=== PATIENT | female | born 1950 | race Hispanic/Latino ===

== ENCOUNTER 2017-11-07 10:53 | Emergency (ER) | payer MEDICARE, OTHER ==
[~2017-11-07] VITALS: Ht 160 cm; Wt 115.7 kg
[~2017-11-07 10:53] MED LIST: ASPIR 8181 MG; BACID PO; CIPRO500 MG PO; COREG6.25 MG PO; DOXYCYCLINE HY100 MG PO; FLUCONAZOLE100 MG PO; LASIX40 MG PO; LEVEMIR; LEVEMIR100 UNIT/1 SQ; LOSARTAN POTAS100 MG PO; MELOXICAM7.5 MG PO; METAMUCIL PACK1 EACH PO; METFORMIN HCL500 MG PO; NIFEDIPINE10 MG PO; OMEPRAZOLE40 MG PO; POTASSIUM CHLO10 ME1 PO; PROCARDIA XL30 MG PO; STOOL SOFTENER PO; TYLENOL WITH C1 EACH PO; ULTRAM50 MG PO; Z.0.CALTRATE 600 +1 PO; Z.0.FUROSEMIDE40 MG PO; Z.0.LIPITOR80 MG PO; Z.0.LISINOPRIL20 MG PO; Z.0.OMEPRAZOLE40 MG PO; Z.2.METFORMIN HCL500 PO; ZOFRAN ODT4 MG PO
[2017-11-07 13:05] VITALS: BP 137/49
--- NOTE | 2017-11-07 16:15 | Diagnostic Imaging Report ---
History:Left-sided facial swelling Comparison studies: None Technique: Axial images were obtained through the maxillofacial region. Coronal and sagittal images reconstructed from the axial data. Intravenous contrast: None Findings: Soft tissues: Minimal asymmetric subcutaneous soft tissue edema in the left perimandibular soft tissues. No soft tissue abscess. Bones: The patient is edentulous. No fractures or bone abnormalities. Orbits: Globes: Intact Extra or intraconal abnormalities: None. Paranasal sinuses: Clear IMPRESSION: Minimal asymmetric subcutaneous soft tissue edema in the left perimandibular soft tissues which may represent mild cellulitis in the appropriate clinical setting. No soft tissue abscess. The preliminary report was reviewed and a final report issued by Dr. Steven neuroradiologist on 11/07/2017 at 4:11 PM. Signed by: Dr. Sadia Steven M.D. on 11/07/2017 4:11 PM
== END 2017-11-07 13:20 | disposition home or self-care (01) ==
LOC: ER 10:53
DX: L03.211 Cellulitis of face (principal); I10 Essential (primary) hypertension; E11.9 Type 2 diabetes mellitus without complications; I50.9 Heart failure, unspecified
CPT/HCPCS: 70486; 99283

== ENCOUNTER 2017-11-12 16:50 | Emergency (ER) | payer MEDICARE, OTHER ==
[~2017-11-12] VITALS: Ht 160 cm; Wt 104.3 kg
--- NOTE | 2017-11-12 18:35 | Diagnostic Imaging Report ---
PROCEDURE: A single AP view of the chest. COMPARISON: Patients [facility], CT, CT CHEST WO, 09/21/2017, 15:01. INDICATIONS: SHORTNESS OF BREATH FINDINGS: Lines/tubes: Lungs: Lungs are well-inflated. Bilateral interstitial opacities extending from the gogo. Obscuration of the left hemidiaphragm with patchy opacities in bilateral lower lungs, left greater than right. Pleura: Blunting of the right lateral costophrenic sulcus Heart and mediastinum: Cardiomegaly with central pulmonary venous congestion Bones: No acute bony abnormality. IMPRESSION: 1. cardiomegaly with central pulmonary venous congestion and bilateral interstitial edema and pleural effusions, likely reflecting decompensated CHF. 2. Patchy opacities in bilateral lower lungs likely represent compressive atelectasis secondary to bilateral pleural effusions, versus alveolar edema. Bartolome Wang M.D. Dictated by: Bartolome Wang M.D. on 11/12/2017 at 18:43 Electronically approved by: Bartolome Wang M.D. on 11/12/2017 at 18:43
[2017-11-12 18:52] LABS: BILIRUBIN,URINE NEGATIVE (NEGATIVE); CLARITY,URINE CLEAR (CLEAR); COLOR,URINE YELLOW (YELLOW); KETONES,URINE NEGATIVE (NEGATIVE); LEUKOCYTE ESTERASE ,URINE NEGATIVE (NEGATIVE); NITRITE,URINE NEGATIVE (NEGATIVE); PROTEIN,URINE DIPSTICK NEGATIVE (NEGATIVE); URINE UROBILINOGEN 0.2 mg/dL (0.2 - 1)
[2017-11-12 19:22] LABS: BACTERIA,URINE FEW /HPF; EPITHELIAL CELLS,URINE FEW /LPF
[2017-11-12 19:31] LABS: BASOPHILS % 0.7 % (0.0-1.0); EOSINOPHILS # (AUTO) 0.2 (0.0-0.4); HEMATOCRIT 28.2 % (34.2-44.1); LYMPHOCYTES # (AUTO) 0.9 (1.0-3.2); LYMPHOCYTES % 15.2 % (18.0-39.1); MEAN CORPUSCULAR HEMOGLOBIN 28.1 pg (28-32); MEAN CORPUSCULAR HGB CONC 31.9 g/dL (31-35); MEAN CORPUSCULAR VOLUME 88.1 fL (81-99); MONOCYTES # (AUTO) 0.4 (0.2-0.8); MONOCYTES % 6.7 % (4.4-11.3); NEUTROPHILS # (AUTO) 4.3 (2.1-6.9); NEUTROPHILS % 72.9 % (38.7-80.0); PLATELET COUNT 316 x10e3/uL (140-360); RED CELL DISTRIBUTION WIDTH 14.9 % (11.7-14.4)
[2017-11-12 19:37] LABS: INR 0.97; PROTHROMBIN TIME 13.4 seconds (11.9-14.5)
[2017-11-12 19:38] LABS: PARTIAL THROMBOPLASTIN TIME 42.2 seconds (23.8-35.5)
[2017-11-12 19:47] LABS: ALBUMIN 2.4 g/dL (3.5-5.0); ALBUMIN/GLOBULIN RATIO 0.4 (0.8-2.0); ANION GAP 13.5 mmol/L (8-16); CALCIUM 8.6 mg/dL (8.4-10.2); CREATININE, SERUM 1.1 mg/dL (0.57-1.11); POTASSIUM 4.5 mmol/L (3.5-5.1)
[2017-11-12 19:55] LABS: CREATINE KINASE MB 2.1 ng/mL (0.00-5.00); TROPONIN I 0.007 ng/mL (0-0.300)
[2017-11-12] MEDS ORDERED: FUROSEMIDE INJ 10 MG/ML 4 ML VIAL IV ONE (22:30)
[2017-11-12 23:08] VITALS: BP 127/61
== END 2017-11-12 23:21 | disposition home or self-care (01) ==
LOC: ER 16:50
DX: R06.00 Dyspnea, unspecified (principal); I50.32 Chronic diastolic (congestive) heart failure; E11.65 Type 2 diabetes mellitus with hyperglycemia; I10 Essential (primary) hypertension
CPT/HCPCS: 36415; 71010; 80053; 81001; 82550; 82553; 83880; 84484; 85025; 85610; 85730; 87086; 93005; 96374; 99283; J1940

== ENCOUNTER 2017-11-14 23:56 | Inpatient (IN) | payer MEDICARE, OTHER ==
[~2017-11-14] VITALS: Ht 160 cm; Wt 104.9 kg
[2017-11-15] MEDS ORDERED: ASPIRIN 81 MG CHEW TAB PO ONE (00:30)
[2017-11-15 01:00] LABS: BASOPHILS # (AUTO) 0.1 (0.0-0.1); BASOPHILS % 0.8 % (0.0-1.0); EOSINOPHILS # (AUTO) 0.3 (0.0-0.4); EOSINOPHILS % 4.8 % (0.0-6.0); HEMATOCRIT 27.4 % (34.2-44.1); HEMOGLOBIN 8.4 g/dL (12.0-16.0); LYMPHOCYTES # (AUTO) 0.9 (1.0-3.2); LYMPHOCYTES % 13.2 % (18.0-39.1); MEAN CORPUSCULAR HEMOGLOBIN 27.6 pg (28-32); MEAN CORPUSCULAR HGB CONC 30.7 g/dL (31-35); MEAN CORPUSCULAR VOLUME 90.1 fL (81-99); MONOCYTES # (AUTO) 0.5 (0.2-0.8); MONOCYTES % 7.5 % (4.4-11.3); NEUTROPHILS # (AUTO) 4.9 (2.1-6.9); NEUTROPHILS % 73.2 % (38.7-80.0); PLATELET COUNT 288 x10e3/uL (140-360); RED BLOOD COUNT 3.04 x10e6/uL (3.6-5.1); RED CELL DISTRIBUTION WIDTH 15.7 % (11.7-14.4)
--- NOTE | 2017-11-15 01:03 | Diagnostic Imaging Report ---
EXAM: CHEST SINGLE (PORTABLE), AP 1 view DATE: 11/15/2017 12:24 AM Time stamp on exam: 0049 hours INDICATION: Shortness of breath for 2 days COMPARISON: AP view of the chest November 12, 2017 FINDINGS: LINES/TUBES: None LUNGS: Vascular congestion/pulmonary edema and bibasilar atelectasis PLEURA: Indeterminate for layering pleural effusions. HEART AND MEDIASTINUM: Stable appearance BONES AND SOFT TISSUES: No acute findings. IMPRESSION: Stable findings of fluid overload Signed by: Dr. Abigail Shaver M.D. on 11/15/2017 1:00 AM
[2017-11-15 01:10] LABS: BILIRUBIN,URINE NEGATIVE (NEGATIVE); KETONES,URINE NEGATIVE (NEGATIVE); LEUKOCYTE ESTERASE ,URINE NEGATIVE (NEGATIVE); NITRITE,URINE NEGATIVE (NEGATIVE); PROTEIN,URINE DIPSTICK NEGATIVE (NEGATIVE); URINE UROBILINOGEN 0.2 mg/dL (0.2 - 1)
[2017-11-15 01:13] LABS: ALBUMIN 2.6 g/dL (3.5-5.0); ALBUMIN/GLOBULIN RATIO 0.5 (0.8-2.0); ANION GAP 14.9 mmol/L (8-16); CALCIUM 8.6 mg/dL (8.4-10.2); CREATININE, SERUM 1.14 mg/dL (0.57-1.11); POTASSIUM 3.9 mmol/L (3.5-5.1)
[2017-11-15 01:20] LABS: CLARITY,URINE CLEAR (CLEAR); COLOR,URINE YELLOW (YELLOW)
[2017-11-15 01:20] LABS: CREATINE KINASE MB 2.2 ng/mL (0.00-5.00); TROPONIN I 0.014 ng/mL (0-0.300)
[2017-11-15 01:23] LABS: EPITHELIAL CELLS,URINE RARE /LPF; RBC,URINE 0-5 /HPF (0-5); WBC,URINE (MAN) 0-5 /HPF (0-5)
[2017-11-15 02:00] LABS: INR 0.94
[2017-11-15 02:01] LABS: PARTIAL THROMBOPLASTIN TIME 39.9 seconds (23.8-35.5)
[2017-11-15] MEDS ORDERED: FUROSEMIDE INJ 10 MG/ML 4 ML VIAL IV ONE ×2 (02:15→04:45)
[2017-11-15] MEDS ORDERED: VANCOMYCIN 1GM/NS 250 ML 250 ML IV STA (03:22)
[2017-11-15] MEDS ORDERED: ULTRAM50 MG PO (03:26)
[2017-11-15] MEDS ORDERED: CEPHALEXIN500 MG PO (03:26)
[2017-11-15] MEDS: PIPER-TAZ 3.375 GM 50 ML IV SCH ×4 (03:48→23:47)
[2017-11-15 04:29] LABS: ABG PH 7.35 (7.31-7.41)
[2017-11-15] MEDS ORDERED: SODIUM CHLORIDE 0.9% 250ML 250 ML IV ONE (04:45)
[2017-11-15] MEDS ORDERED: DEXTROSE 50% SYRINGE 50 ML IV PRN (05:45)
[2017-11-15] MEDS ORDERED: SODIUM CHLORIDE 0.9% 250ML 250 ML ONE ×2 (06:05→17:29)
[2017-11-15] MEDS ORDERED: DEXTROSE 50% SYRINGE 50 ML IV ONE (07:15)
[2017-11-15] MEDS: INSULIN REGULAR, HUMAN 100 UNIT/1 ML 3ML VIAL SQ SCH ×4 (07:30→20:10)
[2017-11-15] MEDS: FUROSEMIDE INJ 10 MG/ML 4 ML VIAL IV SCH ×2 (09:35→17:22)
[2017-11-15] MEDS ORDERED: FUROSEMIDE INJ 10 MG/ML 2 ML VIAL ONE (09:43)
[2017-11-15] MEDS ORDERED: PIPER-TAZ 3.375 GM 50 ML ONE (09:43)
[2017-11-15] MEDS ORDERED: FUROSEMIDE INJ 10 MG/ML 4 ML VIAL ONE (09:43)
[2017-11-15 11:17] LABS: CREATINE KINASE MB 2.5 ng/mL (0.00-5.00); TROPONIN I 0.014 ng/mL (0-0.300)
--- NOTE | 2017-11-15 12:27 | Diagnostic Imaging Report ---
EXAM: CT Chest WITHOUT contrast INDICATION: Short of breath COMPARISON: Same day radiograph TECHNIQUE: The Chest was scanned utilizing a multidetector helical scanner without the use of IV contrast. Coronal and sagittal reformations were obtained. Reformatted axial MIP images were obtained and reviewed. IV CONTRAST: None COMPLICATIONS: None RADIATION DOSE: Total DLP: 534 mGy*cm Estimated effective dose: (DLP x 0.015 x size factor) mSv CTDIvol has been reviewed. It is below the limits set by the Radiation Protocol Committee (RPC). FINDINGS: Lines and Tubes: None. Lower Neck: The visualized thyroid gland is grossly unremarkable with no suspicious or significant nodule identified. Heart and Great Vessels: The aorta and main pulmonary artery measure 30 and 27 mm. respectively. The cardiothoracic radio measures 14/25. Small pericardial effusion, likely physiologic. Moderate coronary artery vascular calcifications. Lymph Nodes: No definite enlarged mediastinal lymph nodes. The hilar regions are sub-optimally evaluated given lack of IV contrast. Lungs: Moderate layering bilateral pleural effusions are present. Areas of consolidation in the lung bases incompletely evaluated without IV contrast. Moderate septal thickening and scattered groundglass opacities present. Trachea and central bronchi are unremarkable. Upper abdomen: Moderate vascular calcifications. Bones and Soft Tissues: Moderate degenerative changes spine. Remote posterior medical deformity of the manubrium. Remote left rib fractures. IMPRESSION: 1. Cardiomegaly, small pericardial effusion, moderate pleural effusions, septal thickening, and scattered groundglass opacities consistent with moderate volume overload. 2. Areas of consolidation in the lung bases incompletely evaluated without IV contrast, statistically representing atelectasis. Superimposed pneumonia not excluded. 3. Moderate coronary artery vascular calcifications. Signed by: Dr. Alfredo Fitzgerald MD on 11/15/2017 12:24 PM
[2017-11-15 14:45] VITALS: BP 137/57
[2017-11-15] MEDS ORDERED: TRAMADOL HCL 50 MG TAB PO PRN (14:45)
[2017-11-15 15:40] VITALS: BP 137/57
[2017-11-15] MEDS ORDERED: NIFEDIPINE CR 30 MG TAB PO SCH (17:00)
[2017-11-15 20:00] VITALS: BP 116/73
[2017-11-15] MEDS: ATORVASTATIN 40 MG TAB PO SCH (20:21)
[2017-11-15 20:57] LABS: CREATINE KINASE MB 1.8 ng/mL (0.00-5.00); TROPONIN I 0.011 ng/mL (0-0.300)
[2017-11-16] VITALS: BP 140/62
[2017-11-16 04:00] VITALS: BP 149/49
--- NOTE | 2017-11-16 05:23 | History and Physical ---
CHIEF COMPLAINT: Pulmonary edema, shortness of breath, and respiratory failure, required BiPAP. HISTORY OF PRESENT ILLNESS: Patient is a 67-year-old female known to the service. The patient has recent right greater toe amputation. At baseline, the patient has chronic kidney disease, stage 3. She has also had bilateral lower extremity edema with insulin-required diabetes type 2, medical debility, and noncompliant to fluid intake. The patient has diastolic dysfunction and congestive heart failure, she had a normal EF. Patient was discharged home on September 17, 2017. Patient was stable at the time. Now, she came in with pulmonary edema. Her hemoglobin and hematocrit of 8.4 and 27.4. Renal function, BUN and creatinine of 15 and 1.14 diluted. Sugar was in the 62. The patient is on BiPAP. She did receive multiple IV Lasix. The patient is otherwise stable at this time. PAST MEDICAL HISTORY: Includin. Chronic kidney disease. 2. Morbid obesity. 3. Diastolic dysfunction and congestive heart failure. 4. Right greater toe infected diabetic foot ulcer, status post amputation. 5. Hyperlipidemia. 6. Hypertension. 7. Obesity. 8. Obstructive sleep apnea. 9. Peripheral vascular disease with recent angiogram with no intervention. PAST SURGICAL HISTORY: Appendectomy, amputation of the left second toe and subsequent right greater toe. SOCIAL HISTORY: Patient lives at home. She does not smoke or use alcohol. No recreational drug use. ALLERGIES: NO KNOWN ALLERGIES. HOME MEDICATIONS: List will be available for review. REVIEW OF SYSTEMS: Shortness of breath, pulmonary edema, bilateral lower extremity swelling. PHYSICAL EXAMINATION: VITAL SIGNS: Temperature is 97, blood pressure 136/74, pulse rate 74, respirations 22. GENERAL: The patient is in respiratory , she is on BiPAP. HEENT: Normocephalic, atraumatic. Sclerae anicteric. NECK: Positive for JVD. PULMONARY: Diminished breath sounds bilaterally with rales. CARDIOVASCULAR: S1 and S2. Regular rate and rhythm. ABDOMEN: Soft, morbidly obese. EXTREMITIES: No cyanosis. Stitches do remain on right greater toe. Bilateral 3+ edema. NEUROLOGIC: Diabetic neuropathy without any focal deficits. LABORATORY: The sodium is 140, potassium 3.9, chloride 108, bicarb 21, BUN 15, creatinine 1.1, glucose is 81. WBC 6.6, hemoglobin 8.4, hematocrit 27.4, and platelets is 228,000. Urinalysis negative. Chest x-ray, pulmonary edema. IMPRESSION: 1. Pulmonary edema. 2. Bilateral lower extremity swelling. 3. Respiratory failure, on bilevel positive airway pressure. 4. Rnqdh-ap-[id number] diastolic dysfunction, congestive heart failure. 5. Recent right greater toe amputation. 6. Noncompliance issue. PLAN: IV Lasix for diuresis. Consultation with Dr. Loza and Dr. Mickie Rosenbaum. Consultation with Dr. Jon Ge. Continue with BiPAP treatment. Will monitor the patient closely. Adjust the patient's medications closely. Will continue with her treatment. Job#: [id number]
[2017-11-16] MEDS: PIPER-TAZ 3.375 GM 50 ML IV SCH ×3 (06:29→19:30)
[2017-11-16 06:59] VITALS: BP 152/53
[2017-11-16 07:16] LABS: BASOPHILS # (AUTO) 0.1 (0.0-0.1); BASOPHILS % 0.8 % (0.0-1.0); EOSINOPHILS # (AUTO) 0.3 (0.0-0.4); EOSINOPHILS % 4.3 % (0.0-6.0); HEMATOCRIT 27.7 % (34.2-44.1); HEMOGLOBIN 8.8 g/dL (12.0-16.0); LYMPHOCYTES # (AUTO) 1.4 (1.0-3.2); LYMPHOCYTES % 20.9 % (18.0-39.1); MEAN CORPUSCULAR HEMOGLOBIN 28.4 pg (28-32); MEAN CORPUSCULAR HGB CONC 31.8 g/dL (31-35); MEAN CORPUSCULAR VOLUME 89.4 fL (81-99); MONOCYTES # (AUTO) 0.5 (0.2-0.8); MONOCYTES % 7.3 % (4.4-11.3); NEUTROPHILS # (AUTO) 4.3 (2.1-6.9); NEUTROPHILS % 66.2 % (38.7-80.0); PLATELET COUNT 292 x10e3/uL (140-360); RED CELL DISTRIBUTION WIDTH 16.2 % (11.7-14.4)
[2017-11-16] MEDS: PANTOPRAZOLE SOD 40 MG TABEC PO SCH (08:06)
[2017-11-16] MEDS: FUROSEMIDE INJ 10 MG/ML 4 ML VIAL IV SCH ×3 (08:06→17:55)
[2017-11-16] MEDS: INSULIN REGULAR, HUMAN 100 UNIT/1 ML 3ML VIAL SQ SCH ×4 (08:12→20:50)
[2017-11-16] MEDS: LOSARTAN POTASSIUM 100 MG TAB PO SCH (08:27)
[2017-11-16 09:02] LABS: ALBUMIN 2.3 g/dL (3.5-5.0); ALBUMIN/GLOBULIN RATIO 0.5 (0.8-2.0); ANION GAP 14.9 mmol/L (8-16); CALCIUM 8.4 mg/dL (8.4-10.2); CREATININE, SERUM 1.12 mg/dL (0.57-1.11); POTASSIUM 3.9 mmol/L (3.5-5.1)
[2017-11-16 11:17] LABS: FERRITIN 170.16 ng/mL (4.63-204.00)
[2017-11-16] MEDS: LEVOFLOXACIN 500MG/D5W 100ML 100 ML IV SCH (12:10)
[2017-11-16] MEDS ORDERED: METOLAZONE 5 MG TAB PO ONE (12:30)
[2017-11-16] MEDS ORDERED: ALBUMIN HUMAN 12.5GM / 50ML IV ONE (12:30)
[2017-11-16 13:00] VITALS: BP 142/57
[2017-11-16 14:41] VITALS: BP 104/64
--- NOTE | 2017-11-16 15:02 | Diagnostic Imaging Report ---
EXAMINATION: PA and lateral views of the chest. COMPARISON: Chest PA and lateral 04/16/2017 CLINICAL HISTORY: Shortness of breath DISCUSSION: Lines/tubes: None. Lungs: The lungs are well-inflated. Patchy bibasilar opacities. Mild perihilar interstitial opacities. Pleura: Bilateral small pleural effusions. Heart and mediastinum: Stable mild enlargement of the cardiac silhouette. Central pulmonary venous congestion. Bones and soft tissues: No acute bony abnormalities. Degenerative changes in the thoracic spine IMPRESSION: 1. Central pulmonary venous congestion, mild perihilar interstitial edema and bilateral small pleural effusions, likely reflecting volume overload. 2. Patchy bibasilar opacities likely reflect bibasilar atelectasis. Signed by: Dr. Bartolome Wang M.D. on 11/16/2017 2:59 PM
[2017-11-16 20:00] VITALS: BP 142/57
[2017-11-16] MEDS: ATORVASTATIN 40 MG TAB PO SCH (20:29)
--- NOTE | 2017-11-16 22:48 | Consultation ---
DATE OF CONSULTATION: PULMONARY/CRITICAL CARE CONSULTATION REFERRING PHYSICIAN: Dr. Jacques Champagne CHIEF COMPLAINT: Dyspnea and radiographic changes consistent with pulmonary edema. HISTORY OF PRESENT ILLNESS: The patient is a 67-year-old woman. She has a long history of diabetes. She was hospitalized at [facility] in October of this year with an infected toe. She required a toe amputation, followed by wound care and antibiotics. Since being discharged, she has noticed progressive weakness and fatigue. She notes some difficulty breathing. She does not complain of fever. She denies cough. She denies chest pain. Upon presentation, she was found to have radiographic changes consistent with pulmonary edema along with an elevated BNP of 360. She received some Lasix with mild improvement. PAST SURGICAL HISTORY: Status post amputation. PAST MEDICAL HISTORY: 1. Diabetes. 2. Renal insufficiency. No prior history of heart disease. No prior history of respiratory problems. SOCIAL HISTORY: The patient has never smoked. She is not a drinker. She lives here in [place] with her family. ALLERGIES: THERE ARE NO KNOWN DRUG ALLERGIES. REVIEW OF SYSTEMS: The patient is afebrile. She does not complain of headache or cough. She does not complain of neck pain. She has no sore throat. She does note fatigue and difficulty breathing. No chest pain. She has no nausea or vomiting. She does complain of some leg swelling. RADIOGRAPHIC DATA: Chest CT scan showed cardiomegaly and some pleural effusions bilaterally along with some ground-glass opacities consistent with volume overload. LABORATORY DATA: The white blood cell count 6.6 and the hemoglobin is 8.4. The platelet count is 288,000. The blood sugars are within normal limits. The BUN to creatinine ratio is 15 to 1.14. The albumin is 2.6. The blood gases, 7.35, 44, 45, and 24. IMPRESSIONS: 1. Acute systolic congestive heart failure. 2. Possible obstructive sleep apnea. 3. Diabetes mellitus. 4. Peripheral neuropathy. 5. Renal insufficiency. PLAN: 1. The patient received IV Lasix twice daily. 2. Will monitor the I's and O's closely. 3. Repeat chest x-ray in the morning. 4. Cardiology and nephrology are scheduled to evaluate the patient. 5. Oxygen as needed. Thank you. Job#: [id number]
[2017-11-17] VITALS: BP 144/67
[2017-11-17] MEDS: PIPER-TAZ 3.375 GM 50 ML IV SCH ×2 (01:37→06:27)
[2017-11-17 04:00] VITALS: BP 168/78
--- NOTE | 2017-11-17 05:27 | Consultation ---
DATE OF CONSULTATION: November 15, 2017 CARDIOLOGY CONSULTATION CLINICAL HISTORY: This is a 67-year-old woman previously seen by Dr.. Hernesto Witt referred by Dr. Jacques Champagne for cardiovascular evaluation in the setting of pulmonary edema, diabetes, hypoalbuminemia, albumin level 2.3, and left ventricular hypertrophy. Additionally, the patient has pericardial effusion on CT scan of the chest with moderate pleural effusion. This patient had an echocardiogram read by me in August this year. At that time, no diastolic dysfunction was evident. There was no significant pulmonary hypertension. Left ventricular ejection fraction was 60%. She had a Myoview stress test by Dr. Deni Mcintyre showing normal left ventricular function and ejection fraction 61% with no evidence of myocardial ischemia. The patient at that time had congestive heart failure symptoms and was treated with diuretics with symptomatic improvement. She also had swelling in the right toe at that time treated by Dr. Caro. PAST MEDICAL HISTORY: Remarkable for respiratory failure, right toe amputation, chronic kidney disease, possible diastolic dysfunction, hyperlipidemia, hypertension, obesity, obstructive sleep apnea, peripheral vascular disease. PAST SURGICAL HISTORY: Toe amputation on the left and appendectomy and toe amputation on the right. PERSONAL/SOCIAL HISTORY: Denies smoking, drinking or drug abuse. ALLERGIES: NONE KNOWN. MEDICATIONS AT HOME 1. Keflex. 2. Cipro. 3. Doxycycline. 4. Lasix 40 mg per day. 5. Metformin 1000 mg per day. 6. Bacid 2 tablets daily. 7. Atorvastatin 40 mg p.o. daily. 8. Losartan 100 mg p.o. daily. 9. Nifedipine 30 mg p.o. daily. 10. Omeprazole 40 mg daily. 11. Tramadol 50 mg p.o. q.8 h. p.r.n. REVIEW OF SYSTEMS: Noncontributory. PHYSICAL EXAMINATION GENERAL: She is morbidly obese. CARDIAC: Jugular veins are not distended. S1 and S2 were regular. There are no appreciable murmurs. LUNGS: Show bilateral rales. ABDOMEN: Soft. Bowel sounds are present. EXTREMITIES: Shows 2+ pitting edema. LABORATORY STUDIES: As mentioned including the CT scan. IMPRESSION 1. Pulmonary edema: Probably more due to hypoalbuminemia rather than diastolic dysfunction. 2. Normal systolic function: Ejection fraction in the range of 61% to 65%. 3. History of proteinuria: Based on urine test in August of this year, which had 2+ proteinuria, but this time protein level was negative. 4. Severe hypoalbuminemia. Albumin level of 2.3. 5. History of respiratory failure. 6. Consider diastolic dysfunction. 7. History of medication noncompliance. 8. Peripheral vascular disease: Status post toe amputations bilaterally. 9. Obstructive sleep apnea. 10. Morbid obesity. 11. Hypertension. 12. Hyperlipidemia. 13. Negative nuclear stress test in August 2017. 14. Small pericardial effusion. 15. Moderate pleural effusion. 16. Severe anemia: Hemoglobin 8.8 with iron deficiency. RECOMMENDATION: Correct iron deficiency anemia. Diuretics and correct hypoalbuminemia. Repeat echocardiogram to assess pericardial effusion and diastolic function. Job#: [id number] RI cc:MD HARRY BAUER MD DR. EL-RAHI JAMES TRAN, MD
--- NOTE | 2017-11-17 06:34 | Consultation ---
DATE OF CONSULTATION: November 16, 2017 NEPHROLOGY CONSULTATION REASON FOR CONSULT: Chronic kidney disease, stage 3. This is a pleasant 67-year-old female who is known to our service as we have seen her before in the clinic. She is known to have multiple medical problems, including hypertension, diabetes, type 2, obstructive sleep apnea, obesity, neuropathy, and history of multiple toe amputations of the left 2nd toe and the right big toe amputated recently. She has been on Lasix 40 mg p.o. daily as an outpatient. She has been doing okay until a few weeks ago when she started to notice lower extremity swelling getting worse. She is not that compliant with fluid and salt restriction. She is coming this time with a few days of worsening dyspnea on exertion and shortness of breath. She was admitted for pulmonary edema, fluid overload, and currently getting IV Lasix with excellent diuresis and urine output. Her creatinine has been fluctuating recently between 1.2 and 1.5. Today, her creatinine is close to baseline. We are consulted for CKD. I am seeing the patient today. She is on nasal cannula and off the BiPAP, and she feels much better. REVIEW OF SYSTEMS: Negative otherwise. PAST MEDICAL HISTORY: As mentioned above. PAST SURGICAL HISTORY: Status post appendectomy, left 2nd toe and right great toe amputated, and recent angiogram for lower extremity peripheral vascular disease. SOCIAL HISTORY: Denies smoking, alcohol or illicit drug abuse. ALLERGIES: SHE IS NOT ALLERGIC TO ANY MEDICATIONS. PHYSICAL EXAMINATION VITAL SIGNS: Today, her vital signs include a blood pressure of 152/53, heart rate 82, temperature 99.7. GENERAL: Not in acute distress. HEAD AND NECK: No adenopathy. HEART: Regular rate and rhythm. LUNGS: Basilar rales. ABDOMEN: Soft, nontender and obese. EXTREMITIES: Plus 2 pitting edema. Her white count is 6.4, hemoglobin 8.8. She is anemic. Sodium is 145, potassium 3.9, BUN 12, creatinine 1.12 today. Chest x-ray with congestion and pulmonary edema. Albumin is 2.3. Troponin 0.01. Her BNP is 383. ASSESSMENT AND PLAN 1. Chronic kidney disease, stage 3: Creatinine is currently at baseline. Recently, her creatinine has been fluctuating between 1.2 to 1.5. Today, it is 1.12 and considered close to her baseline with GFR of 49 mL per minute. Avoid any nephrotoxins and nonsteroidal anti-inflammatory drugs. Will not do further workup as this has been worked up before. The patient is at her baseline. 2. Pulmonary edema: The patient takes Lasix 40 mg p.o. daily and reports compliance to that. She probably needs to cut down on her fluid and salt restriction, and be more compliant. At this point, she is on 40 mg intravenous Lasix twice a day. She is having excellent diuresis. She had almost 6 L in the last 24 hours. She is reporting clinical improvement. 3. History of possible obstructive sleep apnea: As per the records in August, she was approved for oxygen. The patient is not taking any nasal cannula oxygen. She does not have a CPAP machine at night. She needs pulmonary evaluation. 4. Congestive heart failure, diastolic: Keep on diuresis, and fluid and salt restriction. Cardiology to follow. 5. Peripheral vascular disease: Status post angiograms in the past, and right great toe and left 2nd toe amputation. Monitor closely. 6. Diabetes: Monitor blood sugar. On insulin and off metformin for now. 7. Hypertension: The patient is on losartan. Monitor for now and titrate. Will add Procardia if needed. From a renal standpoint, the patient has CKD, 3, and admitted for pulmonary edema. Keep IV diuresis and monitor closely her urine output, labs and electrolytes. Thank you for the consult. We will update the primary team for recommendations. Job#: [id number] KATHRYN
[2017-11-17 06:52] LABS: BASOPHILS % 0.5 % (0.0-1.0); EOSINOPHILS # (AUTO) 0.3 (0.0-0.4); EOSINOPHILS % 4.8 % (0.0-6.0); HEMATOCRIT 28.8 % (34.2-44.1); LYMPHOCYTES # (AUTO) 1.2 (1.0-3.2); MEAN CORPUSCULAR HEMOGLOBIN 27.9 pg (28-32); MEAN CORPUSCULAR HGB CONC 31.3 g/dL (31-35); MEAN CORPUSCULAR VOLUME 89.2 fL (81-99); MONOCYTES # (AUTO) 0.5 (0.2-0.8); MONOCYTES % 7.7 % (4.4-11.3); NEUTROPHILS # (AUTO) 4.1 (2.1-6.9); NEUTROPHILS % 66.4 % (38.7-80.0); PLATELET COUNT 255 x10e3/uL (140-360); RED BLOOD COUNT 3.23 x10e6/uL (3.6-5.1); RED CELL DISTRIBUTION WIDTH 15.8 % (11.7-14.4)
[2017-11-17 07:15] LABS: ALBUMIN 2.7 g/dL (3.5-5.0); ALBUMIN/GLOBULIN RATIO 0.6 (0.8-2.0); ANION GAP 13.6 mmol/L (8-16); CALCIUM 8.5 mg/dL (8.4-10.2); CREATININE, SERUM 1.12 mg/dL (0.57-1.11); POTASSIUM 3.6 mmol/L (3.5-5.1)
[2017-11-17] MEDS: PANTOPRAZOLE SOD 40 MG TABEC PO SCH (07:46)
[2017-11-17 07:54] LABS: MAGNESIUM 1.1 MG/DL (1.3-2.1)
[2017-11-17] MEDS: INSULIN REGULAR, HUMAN 100 UNIT/1 ML 3ML VIAL SQ SCH ×4 (08:15→20:39)
[2017-11-17] MEDS ORDERED: MAGNESIUM SULF 1GRAM/DEXTROSE 100 ML IV ONE (08:15)
[2017-11-17 08:17] VITALS: BP 149/50
[2017-11-17] MEDS: FUROSEMIDE INJ 10 MG/ML 4 ML VIAL IV SCH ×2 (08:31→17:39)
--- NOTE | 2017-11-17 09:00 | Progress Note ---
DATE: November 17, 2017 PULMONARY PROGRESS NOTE The patient reports less dyspnea and less congestion after diuresis. The patient was evaluated by cardiology and nephrology. Nephrology noted some proteinuria, as well as a low albumin. Cardiology noted a normal ejection fraction. OBJECTIVE GENERAL: The patient is now nasal cannula. VITAL SIGNS: Improved. HEENT: Shows no facial swelling or erythema. CARDIAC: Reveals a regular rate and rhythm with a normal S1 and S2. LUNGS: Auscultation of the lungs reveals clear breath sounds bilaterally. There is less crackling. ABDOMEN: Soft and nontender. EXTREMITIES: She does have some leg edema. IMPRESSION 1. Xyydr-hm-egegjnb diastolic heart failure. 2. Proteinuria and low albumin. 3. Possible cellulitis. 4. Possible obstructive sleep apnea. PLAN 1. The patient should be evaluated for sleep apnea after acute illness is treated. She plans to return to the office to arrange for a diagnostic sleep study. 2. Continue diuretics. 3. Echocardiogram is pending. 4. Continue current antibiotics. Job#: [id number] KATHRYN
[2017-11-17] MEDS: FERROUS SULFATE 325 MG TAB PO SCH (09:06)
[2017-11-17] MEDS: LOSARTAN POTASSIUM 100 MG TAB PO SCH (09:28)
--- NOTE | 2017-11-17 10:24 | Cardiology Report ---
DATE OF STUDY: November 17, 2017 ECHOCARDIOGRAM M-MODE: Dilated left atrium. Left ventricular hypertrophy. Normal contractility. Normal mitral and aortic valves. No pericardial effusion. SECTOR SCAN: Mildly enlarged left atrium. Left ventricular hypertrophy. Normal contractility. Ejection fraction is approximately 60%. Aortic valve is mildly sclerotic. Mitral and tricuspid valves are normal. There is no pericardial effusion. CARDIAC DOPPLER STUDY WITH COLOR: Trace mitral and tricuspid regurgitation. Pulmonary artery systolic pressure estimated at 26 mmHg. CONCLUSION 1. Mild left ventricular hypertrophy with ejection fraction of approximately 60%. 2. Trace mitral regurgitation with mildly enlarged left atrium. 3. Aortic sclerosis without stenosis. 4. Trace tricuspid regurgitation without significant pulmonary hypertension. Job#: [id number] RI cc:YORDY GIRON MD
[2017-11-17] MEDS: LEVOFLOXACIN 500MG/D5W 100ML 100 ML IV SCH (10:26)
[2017-11-17] MEDS: PIPERACILLIN/TAZOBAC 3.375 GM in SODIUM CHLORIDE 0.9% 100 ML IV SCH ×2 (12:59→18:09)
[2017-11-17] MEDS: MAGNESIUM SULFATE 2GM/50ML 50 ML IV ONE ×2 (12:59→14:31)
[2017-11-17 13:28] VITALS: BP 167/62
[2017-11-17] MEDS: NIFEDIPINE CR 30 MG TAB PO SCH (13:30)
[2017-11-17 16:52] VITALS: BP 154/64
[2017-11-17 20:00] VITALS: BP 134/69
[2017-11-17] MEDS: ATORVASTATIN 40 MG TAB PO SCH (20:39)
[2017-11-18] VITALS: BP 154/62
[2017-11-18] MEDS: PIPERACILLIN/TAZOBAC 3.375 GM in SODIUM CHLORIDE 0.9% 100 ML IV SCH ×4 (00:15→19:01)
[2017-11-18 04:00] VITALS: BP 139/52
[2017-11-18 06:32] LABS: ALBUMIN 2.5 g/dL (3.5-5.0); ALBUMIN/GLOBULIN RATIO 0.5 (0.8-2.0); ANION GAP 12.4 mmol/L (8-16); CALCIUM 8.6 mg/dL (8.4-10.2); CREATININE, SERUM 1.33 mg/dL (0.57-1.11); MAGNESIUM 1.8 MG/DL (1.3-2.1); PHOSPHORUS 3.2 MG/DL (2.3-4.7); POTASSIUM 3.4 mmol/L (3.5-5.1)
[2017-11-18] MEDS: INSULIN REGULAR, HUMAN 100 UNIT/1 ML 3ML VIAL SQ SCH ×4 (08:10→21:13)
[2017-11-18] MEDS: PANTOPRAZOLE SOD 40 MG TABEC PO SCH (08:16)
[2017-11-18] MEDS: FUROSEMIDE INJ 10 MG/ML 4 ML VIAL IV SCH ×2 (08:16→19:08)
[2017-11-18] MEDS: FERROUS SULFATE 325 MG TAB PO SCH (08:17)
[2017-11-18 08:30] VITALS: BP 151/64
[2017-11-18] MEDS: NIFEDIPINE CR 30 MG TAB PO SCH (08:32)
[2017-11-18] MEDS: LOSARTAN POTASSIUM 100 MG TAB PO SCH (08:32)
[2017-11-18] MEDS: SODIUM FERRIC GLUCONATE COMPLX 125 MG in SODIUM CHLORIDE 0.9% 100 ML 100 ML IV SCH (09:30)
[2017-11-18] MEDS: LEVOFLOXACIN 500MG/D5W 100ML 100 ML IV SCH (10:57)
[2017-11-18] MEDS ORDERED: POTASSIUM CHLORIDE 10 MEQ TABCR PO ONE (12:30)
[2017-11-18] MEDS ORDERED: POTASSIUM CHLORIDE 20 MEQ TAB CR PO NR (12:45)
[2017-11-18] MEDS ORDERED: DEXTROSE 50% SYRINGE 50 ML IV PRN (13:15)
--- NOTE | 2017-11-18 14:48 | Diagnostic Imaging Report ---
PROCEDURE:CHEST SINGLE (PORTABLE) TECHNIQUE:Portable AP chest INDICATION:Chest congestion COMPARISON:Patients [facility], , CHEST 2 VIEWS, 11/16/2017, 14:36. FINDINGS: Bilateral interstitial and lower lobe predominant alveolar opacities, mildly improved relative to November 16. Trace pleural effusions decreased in volume compared to November 16. Enlarged cardiac silhouette and central vasculature with mild peribronchial cuffing. Grossly intact skeleton. CONCLUSION: Mild improvement in pulmonary edema relative to November 16. Persistent interstitial edema and trace effusions. Dictated by: Orlando Pena M.D. on 11/18/2017 at 14:57 Electronically approved by: Orlando Pena M.D. on 11/18/2017 at 14:57
[2017-11-18] MEDS: INSULIN DETEMIR 100 UNIT/ML PEN SQ SCH (19:13)
[2017-11-18 20:25] VITALS: BP 124/58
[2017-11-18] MEDS: ATORVASTATIN 40 MG TAB PO SCH (21:17)
[2017-11-19] VITALS: BP 138/65
[2017-11-19] MEDS: PIPERACILLIN/TAZOBAC 3.375 GM in SODIUM CHLORIDE 0.9% 100 ML IV SCH ×3 (00:45→13:51)
[2017-11-19 04:00] VITALS: BP 128/72
[2017-11-19 07:39] LABS: BASOPHILS % 0.8 % (0.0-1.0); EOSINOPHILS # (AUTO) 0.4 (0.0-0.4); EOSINOPHILS % 7.3 % (0.0-6.0); HEMATOCRIT 27.3 % (34.2-44.1); HEMOGLOBIN 8.8 g/dL (12.0-16.0); LYMPHOCYTES # (AUTO) 1.1 (1.0-3.2); LYMPHOCYTES % 21.8 % (18.0-39.1); MEAN CORPUSCULAR HEMOGLOBIN 28.6 pg (28-32); MEAN CORPUSCULAR HGB CONC 32.2 g/dL (31-35); MEAN CORPUSCULAR VOLUME 88.6 fL (81-99); MONOCYTES # (AUTO) 0.4 (0.2-0.8); NEUTROPHILS % 61.7 % (38.7-80.0); PLATELET COUNT 255 x10e3/uL (140-360); RED BLOOD COUNT 3.08 x10e6/uL (3.6-5.1); RED CELL DISTRIBUTION WIDTH 14.8 % (11.7-14.4)
[2017-11-19 08:04] LABS: ALBUMIN 2.5 g/dL (3.5-5.0); ALBUMIN/GLOBULIN RATIO 0.6 (0.8-2.0); ANION GAP 11.5 mmol/L (8-16); CALCIUM 8.5 mg/dL (8.4-10.2); CREATININE, SERUM 1.41 mg/dL (0.57-1.11); MAGNESIUM 1.5 MG/DL (1.3-2.1); POTASSIUM 3.5 mmol/L (3.5-5.1)
[2017-11-19] MEDS: INSULIN REGULAR, HUMAN 100 UNIT/1 ML 3ML VIAL SQ SCH ×4 (08:30→21:00)
[2017-11-19] MEDS: INSULIN DETEMIR 100 UNIT/ML PEN SQ SCH ×2 (08:30→17:42)
[2017-11-19 08:41] VITALS: BP 174/74
[2017-11-19] MEDS: NIFEDIPINE CR 30 MG TAB PO SCH (08:57)
[2017-11-19] MEDS: LOSARTAN POTASSIUM 100 MG TAB PO SCH (08:57)
[2017-11-19] MEDS: FERROUS SULFATE 325 MG TAB PO SCH (08:57)
[2017-11-19] MEDS: FUROSEMIDE INJ 10 MG/ML 4 ML VIAL IV SCH (08:57)
[2017-11-19] MEDS: PANTOPRAZOLE SOD 40 MG TABEC PO SCH (09:00)
[2017-11-19] MEDS: LEVOFLOXACIN 500MG/D5W 100ML 100 ML IV SCH (10:25)
[2017-11-19] MEDS ORDERED: SODIUM CHLORIDE 0.9% 250ML 250 ML ONE (11:24)
[2017-11-19] MEDS: SODIUM FERRIC GLUCONATE COMPLX 125 MG in SODIUM CHLORIDE 0.9% 100 ML 100 ML IV SCH (11:45)
[2017-11-19] MEDS ORDERED: POTASSIUM CHLORIDE 10 MEQ TABCR PO NR (14:30)
[2017-11-19 16:48] VITALS: BP 156/67
[2017-11-19] MEDS ORDERED: ACETAZOLAMIDE 250 MG TAB PO SCH (17:00)
[2017-11-19] MEDS: ACETAZOLAMIDE 250 MG TAB PO SCH (19:05)
[2017-11-19 20:00] VITALS: BP 141/64
[2017-11-19] MEDS: ATORVASTATIN 40 MG TAB PO SCH (20:33)
[2017-11-20] VITALS: BP 151/67
[2017-11-20 04:00] VITALS: BP_SYST 151; BP_SYST 166; BP_DIAS 67; BP_DIAS 74
[2017-11-20 06:47] LABS: BASOPHILS % 0.7 % (0.0-1.0); EOSINOPHILS # (AUTO) 0.4 (0.0-0.4); EOSINOPHILS % 7.5 % (0.0-6.0); HEMATOCRIT 29.7 % (34.2-44.1); HEMOGLOBIN 9.2 g/dL (12.0-16.0); LYMPHOCYTES # (AUTO) 1.3 (1.0-3.2); LYMPHOCYTES % 23.8 % (18.0-39.1); MEAN CORPUSCULAR HEMOGLOBIN 27.7 pg (28-32); MEAN CORPUSCULAR VOLUME 89.5 fL (81-99); MONOCYTES # (AUTO) 0.5 (0.2-0.8); MONOCYTES % 8.2 % (4.4-11.3); NEUTROPHILS # (AUTO) 3.3 (2.1-6.9); NEUTROPHILS % 59.4 % (38.7-80.0); PLATELET COUNT 263 x10e3/uL (140-360); RED BLOOD COUNT 3.32 x10e6/uL (3.6-5.1); RED CELL DISTRIBUTION WIDTH 14.9 % (11.7-14.4)
[2017-11-20 07:11] LABS: ALBUMIN 2.6 g/dL (3.5-5.0); ALBUMIN/GLOBULIN RATIO 0.5 (0.8-2.0); ANION GAP 12.6 mmol/L (8-16); CALCIUM 9.1 mg/dL (8.4-10.2); CREATININE, SERUM 1.37 mg/dL (0.57-1.11); MAGNESIUM 1.8 MG/DL (1.3-2.1); POTASSIUM 3.6 mmol/L (3.5-5.1)
[2017-11-20 08:58] VITALS: BP 132/71
[2017-11-20] MEDS: PANTOPRAZOLE SOD 40 MG TABEC PO SCH (09:18)
[2017-11-20] MEDS: NIFEDIPINE CR 30 MG TAB PO SCH (09:19)
[2017-11-20] MEDS: ACETAZOLAMIDE 250 MG TAB PO SCH ×2 (09:19→17:48)
[2017-11-20] MEDS: FERROUS SULFATE 325 MG TAB PO SCH (09:19)
[2017-11-20] MEDS: LOSARTAN POTASSIUM 100 MG TAB PO SCH (09:19)
[2017-11-20] MEDS: INSULIN DETEMIR 100 UNIT/ML PEN SQ SCH ×2 (09:19→17:49)
[2017-11-20] MEDS: FUROSEMIDE INJ 10 MG/ML 4 ML VIAL IV SCH (09:19)
[2017-11-20] MEDS: INSULIN REGULAR, HUMAN 100 UNIT/1 ML 3ML VIAL SQ SCH ×4 (09:19→21:00)
[2017-11-20] MEDS: LEVOFLOXACIN 500MG/D5W 100ML 100 ML IV SCH (09:20)
[2017-11-20] MEDS: SODIUM FERRIC GLUCONATE COMPLX 125 MG in SODIUM CHLORIDE 0.9% 100 ML 100 ML IV SCH (10:20)
[2017-11-20 13:03] VITALS: BP 155/80
[2017-11-20 16:46] VITALS: BP 145/67
[2017-11-20 20:00] VITALS: BP 106/82
[2017-11-20] MEDS: ATORVASTATIN 40 MG TAB PO SCH (21:31)
--- NOTE | 2017-11-20 23:32 | Discharge Summary ---
PLEASE VERIFY ADT PRIMARY CARE PHYSICIAN: Dr. Danna Lynn CONSULTANTS: Dr. Jennifer Charlton and Dr. Deni Mcintyre. Covering physician is Dr. Hernesto Witt. FINAL DIAGNOSES 1. [id number]-ij-dusibvp diastolic dysfunction congestive heart failure with ejection fraction of 65%. 2. Acute kidney injury, resolved. 3. Status post dehydration. 4. Normal Cardiolite stress test with chest pain. 5. Right great toe chronic wound with chronic infection secondary to peripheral vascular disease with ischemic changes. SUMMARY: Patient a 66-year-old female with extensive chronic medical problems including diabetes type 2 with diabetic neuropathy. She is also morbidly obese and had peripheral vascular disease. She had a right toe chronic wound with infected diabetic wound chronically. She came in with fluid overload increasing shortness of breath and lower extremity edema. Patient has gkaif-dt-pynqutb diastolic dysfunction congestive heart failure. Her echocardiogram showed ejection fraction approximately 60%. The patient received diuresis aggressively with IV Lasix. She does have chronic kidney disease. Her GFR approximately 30% on baseline. The patient underwent multiple tests done including subsequent Lexiscan Myoview on September. The patient's test was subsequently normal. Normal perfusion. No reversible ischemia. Again, Lexiscan showed ejection fraction approximately 65%. Patient diuresis better. The patient subsequently recommended for medical management. Plan for the patient to continue with diuresis, cut back on the IV Lasix, and start the patient on oral furosemide. The patient's renal function improved back to baseline. She was stable. Arrangement was made for the patient to go home for close monitoring. Follow up with her family physician for repeated lab work and also to continue to monitor her liver fluid status. Fluid restriction and education was given to the patient. Patient expressed understanding. Overall, she was stable. She was subsequently discharged home, follow up with Dr. Mcintyre in approximately [address] Loza in approximately 1 to 2 weeks. Continue to follow up with her smoking pipe repairer for her toe wound infection monitoring and close following. Patient was, otherwise, stable. Resume home medication. Add on furosemide and monitor her as an outpatient. Please review the MAR on discharge. Job#: [id number] CQ
[2017-11-21] VITALS: BP 118/54
[2017-11-21 04:00] VITALS: BP 127/60
[2017-11-21 07:30] VITALS: BP 147/67
[2017-11-21] MEDS: INSULIN REGULAR, HUMAN 100 UNIT/1 ML 3ML VIAL SQ SCH ×4 (07:30→20:50)
[2017-11-21 08:36] LABS: ANION GAP 11.3 mmol/L (8-16); CALCIUM 9.2 mg/dL (8.4-10.2); CREATININE, SERUM 1.27 mg/dL (0.57-1.11); POTASSIUM 3.3 mmol/L (3.5-5.1)
[2017-11-21 08:39] LABS: BASOPHILS # (AUTO) 0.1 (0.0-0.1); BASOPHILS % 0.9 % (0.0-1.0); EOSINOPHILS # (AUTO) 0.5 (0.0-0.4); EOSINOPHILS % 8.1 % (0.0-6.0); HEMATOCRIT 30.9 % (34.2-44.1); HEMOGLOBIN 9.6 g/dL (12.0-16.0); LYMPHOCYTES # (AUTO) 1.5 (1.0-3.2); LYMPHOCYTES % 25.3 % (18.0-39.1); MEAN CORPUSCULAR HGB CONC 31.1 g/dL (31-35); MEAN CORPUSCULAR VOLUME 90.1 fL (81-99); MONOCYTES # (AUTO) 0.4 (0.2-0.8); MONOCYTES % 7.4 % (4.4-11.3); NEUTROPHILS # (AUTO) 3.4 (2.1-6.9); NEUTROPHILS % 58.1 % (38.7-80.0); PLATELET COUNT 289 x10e3/uL (140-360); RED BLOOD COUNT 3.43 x10e6/uL (3.6-5.1); RED CELL DISTRIBUTION WIDTH 14.8 % (11.7-14.4)
[2017-11-21] MEDS: NIFEDIPINE CR 30 MG TAB PO SCH (08:47)
[2017-11-21] MEDS: LOSARTAN POTASSIUM 100 MG TAB PO SCH (08:47)
[2017-11-21] MEDS: FUROSEMIDE INJ 10 MG/ML 4 ML VIAL IV SCH (08:47)
[2017-11-21] MEDS: FERROUS SULFATE 325 MG TAB PO SCH (08:47)
[2017-11-21] MEDS: PANTOPRAZOLE SOD 40 MG TABEC PO SCH (08:47)
[2017-11-21] MEDS: ACETAZOLAMIDE 250 MG TAB PO SCH (08:47)
[2017-11-21] MEDS: INSULIN DETEMIR 100 UNIT/ML PEN SQ SCH ×2 (08:48→17:11)
[2017-11-21 09:20] LABS: MAGNESIUM 1.6 MG/DL (1.3-2.1)
[2017-11-21] MEDS: SODIUM FERRIC GLUCONATE COMPLX 125 MG in SODIUM CHLORIDE 0.9% 100 ML 100 ML IV SCH (10:03)
[2017-11-21] MEDS: LEVOFLOXACIN 500MG/D5W 100ML 100 ML IV SCH (11:32)
[2017-11-21 12:04] VITALS: BP 137/62
[2017-11-21 16:32] VITALS: BP 128/61
[2017-11-21] MEDS ORDERED: LEVEMIR100 UNIT/1 SC ×2 (18:47)
[2017-11-21 20:00] VITALS: BP 121/58
[2017-11-21] MEDS: ATORVASTATIN 40 MG TAB PO SCH (20:51)
[2017-11-22] VITALS: BP 122/56
[2017-11-22 04:00] VITALS: BP 136/86
[2017-11-22 08:21] VITALS: BP 167/71
[2017-11-22] MEDS: PANTOPRAZOLE SOD 40 MG TABEC PO SCH (08:43)
[2017-11-22] MEDS: INSULIN REGULAR, HUMAN 100 UNIT/1 ML 3ML VIAL SQ SCH (08:43)
[2017-11-22] MEDS: INSULIN DETEMIR 100 UNIT/ML PEN SQ SCH (08:44)
[2017-11-22] MEDS: NIFEDIPINE CR 30 MG TAB PO SCH (08:44)
[2017-11-22] MEDS: LOSARTAN POTASSIUM 100 MG TAB PO SCH (08:44)
[2017-11-22] MEDS: FERROUS SULFATE 325 MG TAB PO SCH (08:44)
[2017-11-22] MEDS ORDERED: POTASSIUM CHLORIDE 10 MEQ TABCR PO SCH (09:00)
[2017-11-22 09:11] LABS: ANION GAP 12.5 mmol/L (8-16); CALCIUM 9.2 mg/dL (8.4-10.2); CREATININE, SERUM 1.42 mg/dL (0.57-1.11); POTASSIUM 3.5 mmol/L (3.5-5.1)
== END 2017-11-22 11:36 | disposition home or self-care (01) | DRG 291 ==
LOC: ER 23:56 → ERHOLD 11-15 05:53 → UNDOADMIN 11-15 05:53 → ERHOLD 11-15 05:56 → IMCU 11-15 13:56 → MED/SURG 11-18 23:53
PROVIDERS: ADMIT Internal Medicine; ATTEND Internal Medicine
PROC: 30233N1 Transfusion of Nonautologous Red Blood Cells into Peripheral Vein, Percutaneous Approach (ICD-10-PCS; principal; 2017-11-15)
DX: I13.0 Hypertensive heart and chronic kidney disease with heart failure and stage 1 through stage 4 chronic kidney disease, or unspecified chronic kidney disease (principal); I50.33 Acute on chronic diastolic (congestive) heart failure; J96.00 Acute respiratory failure, unspecified whether with hypoxia or hypercapnia; N17.9 Acute kidney failure, unspecified; J81.1 Chronic pulmonary edema; Z68.42 Body mass index [BMI] 45.0-49.9, adult; E66.01 Morbid (severe) obesity due to excess calories; F51.9 Sleep disorder not due to a substance or known physiological condition, unspecified; D63.1 Anemia in chronic kidney disease; Z89.411 Acquired absence of right great toe; N18.3 Chronic kidney disease, stage 3 (moderate); E11.22 Type 2 diabetes mellitus with diabetic chronic kidney disease; Z79.4 Long term (current) use of insulin; Z89.422 Acquired absence of other left toe(s); E11.42 Type 2 diabetes mellitus with diabetic polyneuropathy; Z91.19 Patient's noncompliance with other medical treatment and regimen; G47.33 Obstructive sleep apnea (adult) (pediatric); E11.51 Type 2 diabetes mellitus with diabetic peripheral angiopathy without gangrene; E88.09 Other disorders of plasma-protein metabolism, not elsewhere classified; E78.5 Hyperlipidemia, unspecified; D50.9 Iron deficiency anemia, unspecified
CPT/HCPCS: 36415; 36430; 71010; 71020; 71250; 80048; 80053; 81001; 82550; 82553; 82728; 82805; 82948; 83540; 83605; 83735; 83880; 84100; 84466; 84484; 85025; 85610; 85730; 86225; 86850; 86900; 86920; 87040; 87086; 87400; 93005; 93306; 94660; 96372; 97139; 99284; J1940; J1956; J2543; J2916; J3370; J3475; J7050; J7799; P9016

== ENCOUNTER 2018-11-12 16:22 | Emergency (ER) | payer MEDICARE ==
[~2018-11-12] VITALS: Ht 160 cm; Wt 110.2 kg
[~2018-11-12 16:22] MED LIST changes: +CEPHALEXIN500 MG PO; +LEVEMIR100 UNIT/1 SC
--- OUTSIDE RECORDS SUMMARY | 2018-11-12 16:25 | XMS REPORT ---
Author Author [facility] Address Unknown Phone Unavailable Care Team Providers Care Room Attendant Name Role Phone YORDY GIRON Unavailable Unavailable Enid CAMPOS Unavailable Unavailable Problems This patient has no known problems. Allergies, Adverse Reactions, Alerts This patient has no known allergies or adverse reactions. Medications This patient has no known medications. Results Test Description Test Time Test Comments Text Results Atomic Results Result Comments CHEST SINGLE (PORTABLE) [place] [address] Patient Name: ADAN COLEY MR #: [id number] : 1950 Age/Sex: 67/F Req #: [id number] Adm Physician: YORDY GIRON MD Ordered by: PEREZ MERAZ MD Report #: [id number] Location: [facility] Room/Bed: [place] [address] Procedure: [id number] DX/CHEST SINGLE (PORTABLE) Exam Date: 11/18/17 Exam Time: 1430 REPORT STATUS: Signed PROCEDURE: CHEST SINGLE (PORTABLE) TECHNIQUE: Portable AP chest INDICATION: Chest congestion COMPARISON: [facility], DX, CHEST 2 VIEWS, 11/16/2017, 14:36. FINDINGS: Bilateral interstitial and lower lobe predominant alveolar opacities, mildly improved relative to November 16. Trace pleural effusions decreased in volume compared to November 16. Enlarged cardiac silhouette and central vasculature with mild peribronchial cuffing. Grossly intact skeleton. CONCLUSION: Mild improvement in pulmonary edema relative to November 16. Persistent interstitial edema and trace effusions. Dictated by: Bárbara Pena M.D. on 11/18/2017 at 14:57 Electronically approved by: Bárbara Pena M.D. on 11/18/2017 at 14:57 Dictated By: BÁRBARA PENA MD 56 Transcribed By: IRENE on 11/18/171456 COPY TO: PEREZ MERAZ MD ECHO COMPLETE (ECHOCARDIOGRAM) [place] [address] Patient Name : ADAN COLEY MR #: [id number] : 1950 Age/Sex: 67/F Adm Physician : YORDY GIRON MD Admit Date : 11/15/17 Location : MED/SURG Room/Bed : [facility] REPORT: Cardiology Report DATE OF STUDY: November 17, 2017 ECHOCARDIOGRAM M-MODE: Dilated left atrium. Left ventricular hypertrophy. Normal contractility. Normal mitral and aortic valves. No pericardial effusion. SECTOR SCAN: Mildly enlarged left atrium. Left ventricular hypertrophy. Normal contractility. Ejection fraction is approximately 60%. Aortic valve is mildly sclerotic. Mitral and tricuspid valves are normal. There is no pericardial effusion. CARDIAC DOPPLER STUDY WITH COLOR: Trace mitral and tricuspid regurgitation. Pulmonary artery systolic pressure estimated at 26 mmHg. CONCLUSION 1. Mild left ventricular hypertrophy with ejection fraction of approximately 60%. 2. Trace mitral regurgitation with mildly enlarged left atrium. 3. Aortic sclerosis without stenosis. 4. Trace tricuspid regurgitation without significant pulmonary hypertension. Job#: [id number] RI cc: YORDY GIRON MD Signature Date Dictated By: ROCIO ROMAN MD Transcribed By: ALEXANDER on 11/17/17 <Electronically signed by ROCIO ROMAN MD><<Signature on File>>12/11/17 1029 COPY TO: CHEST 2 VIEWS [place] [address] Patient Name: ADAN COLEY MR #: [id number] : 1950 Age/Sex: 67/F Req #: [id number] Adm Physician: YORDY GIRON MD Ordered by: HARRY VAZQUEZ MD Report #: [id number] Location: [facility] Room/Bed: [place] [address] Procedure: [id number] DX/CHEST 2 VIEWS Exam Date: 11/16/17 Exam Time: 1445 REPORT STATUS: Signed EXAMINATION: PA and lateral views of the chest. COMPARISON: Chest PA and lateral 04/16/2017 CLINICAL HISTORY: Shortness of breath DISCUSSION: Lines/tubes: None. Lungs: The lungs are well-inflated. Patchy bibasilar opacities. Mild perihilar interstitial opacities. Pleura: Bilateral small pleural effusions. Heart and mediastinum: Stable mild enlargement of the cardiac silhouette. Central pulmonary venous congestion. Bones and soft tissues: No acute bony abnormalities. Degenerative changes in the thoracic spine IMPRESSION: 1. Central pulmonary venous congestion, mild perihilar interstitial edema and bilateral small pleural effusions, likely reflecting volume overload. 2. Patchy bibasilar opacities likely reflect bibasilar atelectasis. Signed by: Dr. Bartolome Veloz M.D. on 11/16/2017 2:59 PM Dictated By: BARTOLOME VELOZ MD 3978 Transcribed By: SUSANNAH on 11/16/17 8232 COPY TO: HARRY VAZQUEZ MD CT CHEST WO [place] [address] Patient Name: ADAN COLEY MR #: [id number] : 1950 Age/Sex: 67/F Req #: [id number] Adm Physician: YORDY GIRON MD Ordered by: YORDY GIRON MD Report #: [id number] Location: [facility] Room/Bed: [place] [address] Procedure: [id number] CT/CT CHEST WO Exam Date: 11/15/17 Exam Time: 1145 REPORT STATUS: Signed EXAM: CT Chest WITHOUT contrast INDICATION: Short of breath COMPARISON: Same day radiograph TECHNIQUE: The Chest was scanned utilizing a multidetector helical scanner without the use of IV contrast. Coronal and sagittal reformations were obtained. Reformatted axial MIP images were obtained and reviewed. IV CONTRAST: None COMPLICATIONS: None RADIATION DOSE: Total DLP: 534 mGy*cm Estimated effective dose: (DLP x 0.015 x size factor) mSv CTDIvol has been reviewed. It is below the limits set by the Radiation Protocol Committee (RPC). FINDINGS: Lines and Tubes: None. Lower Neck: The visualized thyroid gland is grossly unremarkable with no suspicious or significant nodule identified. Heart and Great Vessels: The aorta and main pulmonary artery measure 30 and 27 mm. respectively. The cardiothoracic radio measures 14/25. Small pericardial effusion, likely physiologic. Moderate coronary artery vascular calcifications. Lymph Nodes: No definite enlarged mediastinal lymph nodes. The hilar regions are sub-optimally evaluated given lack of IV contrast. Lungs: Moderate layering bilateral pleural effusions are present. Areas of consolidation in the lung bases incompletely evaluated without IV contrast. Moderate septal thickening and scattered groundglass opacities present. Trachea and central bronchi are unremarkable. Upper abdomen: Moderate vascular calcifications. Bones and Soft Tissues: Moderate degenerative changes spine. Remote posterior medical deformity of the manubrium. Remote left rib fractures. IMPRESSION: 1. Cardiomegaly, small pericardial effusion, moderate pleural effusions, septal thickening, and scattered groundglass opacities consistent with moderate volume overload. 2. Areas of consolidation in the lung bases incompletely evaluated without IV contrast, statistically representing atelectasis. Superimposed pneumonia not excluded. 3. Moderate coronary artery vascular calcifications. Signed by: Dr. Kimberly Fitzgerald MD on 11/15/2017 12:24 PM Dictated By: KIMBERLY FITZGERALD MD 1224 Transcribed By: SUSANNAH on 11/15/17 1224 COPY TO: YORDY GIRON MD CHEST SINGLE (PORTABLE) [place] [address] Patient Name: ADAN COLEY MR #: [id number] : 1950 Age/Sex: 67/F Req #: [id number] Adm Physician: Ordered by: KEVIN HERRERA MD Report #: [id number] Location: ER Room/Bed: Procedure: [id number] DX/CHEST SINGLE (PORTABLE) Exam Date: Exam Time: REPORT STATUS: Signed EXAM: CHEST SINGLE (PORTABLE), AP 1 view DATE: 11/15/2017 12:24 AM Time stamp on exam: 0049 hours INDICATION: Shortness of breath for 2 days COMPARISON: AP view of the chest November 12, 2017 FINDINGS: LINES/TUBES: None LUNGS: Vascular congestion/pulmonary edema and bibasilar atelectasis PLEURA: Indeterminate for layering pleural effusions. HEART AND MEDIASTINUM: Stable appearance BONES AND SOFT TISSUES: No acute findings. IMPRESSION: Stable findings of fluid overload Signed by: Dr. Sola Shaver M.D. on 11/15/2017 1:00 AM Dictated By: SOLA SHAVER MD Transcribed By: SUSANNAH on 11/15/1799 COPY TO: KEVIN HERRERA MD CHEST SINGLE (PORTABLE) [place] [address] Patient Name: ADAN COLEY MR #: [id number] : 1950 Age/Sex: 67/F Req #: [id number] Adm Physician: Ordered by: JASON CAMPOS MD Report #: [id number] Location: ER Room/Bed: Procedure: [id number] DX/CHEST SINGLE (PORTABLE) Exam Date: 11/12/17 Exam Time: 1810 REPORT STATUS: Signed PROCEDURE: A single AP view of the chest. COMPARISON: [facility], CT, CT CHEST , 09/21/2017, 15:01. INDICATIONS: SHORTNESS OF BREATH FINDINGS: Lines/tubes: Lungs: Lungs are well-inflated. Bilateral interstitial opacities extending from the gogo. Obscuration of the left hemidiaphragm with patchy opacities in bilateral lower lungs, left greater than right. Pleura: Blunting of the right lateral costophrenic sulcus Heart and mediastinum: Cardiomegaly with central pulmonary venous congestion Bones: No acute bony abnormality. IMPRESSION: 1. cardiomegaly with central pulmonary venous congestion and bilateral interstitial edema and pleural effusions, likely reflecting decompensated CHF. 2. Patchy opacities in bilateral lower lungs likely represent compressive atelectasis secondary to bilateral pleural effusions, versus alveolar edema. Bartolome Vleoz M.D. Dictated by: Bartolome Veloz M.D. on 11/12/2017 at 18:43 Electronically approved by: Bartolome Veloz M.D. on 11/12/2017 at 18:43 Dictated By: BARTOLOME EVLOZ MD 42 Transcribed By: IRENE on 11/12/171842 COPY TO: JASON CAMPOS MD CT MAXIO FAC/PARANAS WO [place] [address] Patient Name: ADAN COLEY MR #: [id number] : 1950 Age/Sex: 66/F Req #: [id number] Adm Physician: Ordered by: JASON CAMPOS MD Report #: [id number] Location: ER Room/Bed: Procedure: [id number] CT/CT MAXIO FAC/PARANAS WO Exam Date: 11/07/17 Exam Time: 1125 REPORT STATUS: Signed History:Left-sided facial swelling Comparison studies: None Technique: Axial images were obtained through the maxillofacial region. Coronal and sagittal images reconstructed from the axial data. Intravenous contrast: None Findings: Soft tissues: Minimal asymmetric subcutaneous soft tissue edema in the left perimandibular soft tissues. No soft tissue abscess. Bones: The patient is edentulous. No fractures or bone abnormalities. Orbits: Globes: Intact Extra or intraconal abnormalities: None. Paranasal sinuses: Clear IMPRESSION: Minimal asymmetric subcutaneous soft tissue edema in the left perimandibular soft tissues which may represent mild cellulitis in the appropriate clinical setting. No soft tissue abscess. The preliminary report was reviewed and a final report issued by Dr. Steven neuroradiologist on 11/07/2017 at 4:11 PM. Signed by: Dr. Latrice Steven M.D. on 11/07/2017 4:11 PM Dictated By: LATRICE STEVEN MD 161 Transcribed By: SUSANNAH on 11/07/171610 COPY TO: JASON CAMPOS MD MRI FOOT RIGHT WO [place] [address] Patient Name: ADAN COLEY MR #: [id number] : 1950 Age/Sex: 66/F Req #: [id number] [facility] Physician: YORDY GIRON MD Ordered by: TOMAS MURDOCK DPNissa Report #: [id number] Location: [facility] Room/Bed: [facility] Procedure: [id number] MRI/MRI FOOT RIGHT WO Exam Date: 10/26/17 Exam Time: 1600 REPORT STATUS: Signed TECHNIQUE: Magnetic resonance imaging of the RIGHT foot was performed WITHOUT injected contrast. HISTORY: Right- sided pain COMPARISON: None available. DISCUSSION: Soft tissue infiltration of the hallux. Bone marrow edema and T1 replacement involving the phalanges of the hallux. No abscess. Remainder of the bone marrow signal is normal. Soft tissue edema and swelling of the foot. Atrophy of the foot musculature. 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 Signed by: Dr. James Wolff M.D. on 10/27/2017 8:25 AM Dictated By: JAMES WOLFF MD 825 Transcribed By: SUSANNAH on 10/27/17824 COPY TO: TOMAS MURDOCK DPM FOOT RIGHT COMPLETE [place] [address] Patient Name: ADAN COLEY MR #: [id number] : 1950 Age/Sex: 66/F Req #: [id number] Adm Physician: Ordered by: JAQUAN PADILLA MD Report #: [id number] Location: ER Room/Bed: Procedure: [id number] DX/FOOT RIGHT COMPLETE Exam Date: 10/25/17 Exam Time: 0800 REPORT STATUS: Signed EXAM: FOOT RIGHT COMPLETE DATE: 10/25/2017 7:08 AM INDICATION: Diabetic foot COMPARISON: None FINDINGS: Bones are demineralized. Advanced vascular calcifications are present. The Lisfranc joint is normally aligned. Mild scattered degenerative changes present. There is questionable lucency of the fourth and fifth metatarsal heads. Second toe poorly evaluated due to persistent flexion. Moderate plantar and small posterior calcaneal enthesophytes present. IMPRESSION: Questionable lucency fourth and fifth metatarsal heads with osteomyelitis not excluded. Correlation recommended. Contrast-enhanced MRI could be obtained for further evaluation. Other chronic changes as above. Signed by: Dr. Kimberly Fitzgerald MD on 10/25/2017 8:31 AM Dictated By: KIMBERLY FITZGERALD MD 0 Transcribed By: SUSANNAH on 10/25/17830 COPY TO: JAQUAN PADILLA MD Stress Test - Treadmill ONLY [place] [address] Patient Name : ADAN COLEY MR #: [id number] : 1950 Age/Sex: 66/F Adm Physician : YORDY GIRON MD Admit Date : 09/18/17 Location : MED/SURG2 Room/Bed : [facility] REPORT: Cardiology Report DATE OF STUDY: September 22, 2017 LEXISCAN MYOVIEW The patient had resting perfusion images after an injection of 10.8 millicuries of technitium-99 Myoview. Due to inability to exercise, she was given Lexiscan 0.4 mg and shortly afterwards 33 millicuries of technitium-99 Myoview. Perfusion images were taken by rotational tomography. Compared to resting and Lexiscan stress images show no evidence of any perfusion defect. Additionally, gated wall motion images were obtained, and calculated ejection fraction normal at 61%. FINAL IMPRESSION 1. Normal Lexiscan Myoview perfusion. 2. Normal left ventricular function. Calculated ejection fraction 61%. Job#: [id number] RI cc: YORDY GIRON MD Signature Date Dictated By: MATT BROCK MD Transcribed By: EDS on 09/23/17 <Electronically signed by MATT BROCK MD><<Signature on File>>09/28/17 2296 COPY TO: US RENAL RETROPERITONEAL COMP [place] [address] Patient Name: ADAN COLEY MR #: [id number] : 1950 Age/Sex: 66/F Req #: [id number] Adm Physician: YORDY GIRON MD Ordered by: BLAZE GARDNER, ENRIKE GARDNER Report #: [id number] Location: MED/SURG2 Room/Bed: 213-1 Procedure: [id number] US/US RENAL RETROPERITONEAL COMP Exam Date: 09/22/17 Exam Time: 1254 REPORT STATUS: Signed EXAM: Renal Ultrasound INDICATION: CHF COMPARISON: CT dated 04/20/2017 TECHNIQUE: Transverse and longitudinal images of the kidneys and bladder were obtained. FINDINGS: Limited study due to body habitus. Right Kidney: Size: 11.8 cm Echogenicity: Normal Parenchymal thickness: Normal Collecting system: No hydronephrosis Stones: None Cyst/Mass: None Left Kidney: Size: 11.9 cm Echogenicity: Normal Parenchymal thickness: Normal Collecting system: No hydronephrosis Stones: None Cyst/Mass: 2 x 1.1 x 1.8 cm midpole cyst. Bladder: Decompressed by a Mercado catheter in place. IMPRESSION: Unremarkable renal ultrasound exam. 2 cm simple left renal cyst. Signed by: Dr. Berhane Santos MD on 09/22/2017 2:42 PM Dictated By: BERHANE SANTOS MD 144 Transcribed By: SUSANNAH on 09/22/17 1442 COPY TO: ENRIKE THAKUR CT CHEST [place] [address] Patient Name: ADAN COLEY MR #: [id number] : 1950 Age/Sex: 66/F Req #: [id number] Adm Physician: YORDY GIRON MD Ordered by: YORDY GIRON MD Report #: [id number] Location: MED/SURG2 Room/Bed: 213 Procedure: [id number] CT/CT CHEST WO Exam Date: 09/21/17 Exam Time: 1501 REPORT STATUS: Signed PROCEDURE: CT CHEST WITHOUT CONTRAST CT scan of the chest WITHOUT intravenous contrast, using standard protocol. TECHNIQUE: The chest was scanned utilizing a multidetector helical scanner from the apex to the level of the adrenal glands. No IV contrast was administered as per physician request. Coronal and sagittal multiplanar reformations were obtained. COMPARISON: Portable chest 09/20/2017. INDICATIONS: SHORTNESS OF BREATH FINDINGS: Lines/tubes: None. Lungs and Airways: Bilateral nodular groundglass opacities are present in the lungs bilaterally, most prominent in the right upper lobe, series 3 image 35. Pleura: Small bilateral pleural effusions. No pneumothorax. Heart and mediastinum: The thyroid gland is normal. No significant mediastinal, hilar or axillary lymphadenopathy is seen. The heart and pericardium are within normal limits. Atherosclerotic calcifications of the thoracic aorta and coronary arteries. Soft tissues: Normal. Abdomen: Limited views of the upper abdomen show no abnormality within the visualized liver, spleen, pancreas, or kidneys. The adrenal glands are normal. Bones: The visualized bony thorax is within normal limits. IMPRESSION: Bilateral multifocal airspace opacities may represent a developing pneumonia. Small bilateral pleural effusions. Dictated by: Yordy Murphy M.D. on 09/21/2017 at 17:22 Electronically approved by: Yordy Murphy M.D. on 09/21/2017 at 17:22 Dictated By: YORDY MURPHY MD 21 Transcribed By: IRENE on 09/21/171721 COPY TO: YORDY GIRON MD ECHO COMPLETE (ECHOCARDIOGRAM) [place] [address] Patient Name : ADAN COLEY MR #: [id number] : 1950 Age/Sex: 66/F Adm Physician : YORDY GIRON MD Admit Date : 09/18/17 Location : MED/SURG2 Room/Bed : [facility] REPORT: Cardiology Report DATE OF STUDY: September 20, 2017 ATTENDING PHYSICIAN: Dr. Michael Delaney ECHOCARDIOGRAM M-MODE: Dilated left atrium. Left ventricular hypertrophy. Right ventricular hypertrophy. Normal contractility including the inferior wall. Sclerosis of the mitral valve annulus. Normal tricuspid valves. No pericardial effusion. SECTOR SCAN: Suboptimal study with poor image quality. Dilated left atrium. Left and right ventricular hypertrophy. Preserved left ventricular contractility. Ejection fraction 65%. Mitral annulus sclerotic. Tricuspid appears to be normal. There is no pericardial effusion. CARDIAC DOPPLER STUDY WITH COLOR: Trace tricuspid regurgitation. Pulmonary artery systolic pressure estimated at 26 mmHg. CONCLUSIONS 1. Left ventricular hypertrophy with ejection fraction of approximately 65% with normal left ventricular wall motion, including the inferior wall. 2. Right ventricular hypertrophy. 3. Sclerosis of the mitral valve annulus with dilated left atrium. 4. Trace tricuspid regurgitation. Job#: [id number] RI cc: MICHAEL DELANEY MD Signature Date Dictated By: ROCIO ROMAN MD Transcribed By: EDS on 09/21/17 <Electronically signed by ROCIO ROMAN MD><<Signature on File>>09/29/17 1006 COPY TO: CHEST SINGLE (PORTABLE) [place] [address] Patient Name: ADAN COLEY MR #: [id number] : 1950 Age/Sex: 66/F Req #: [id number] Adm Physician: MICHAEL DELANEY MD Ordered by: ROCIO ROMAN MD Report #: [id number] Location: MED/SURG2 Room/Bed: [facility] Procedure: [id number] DX/CHEST SINGLE (PORTABLE) Exam Date: 09/20/17 Exam Time: 0630 REPORT STATUS: Signed Examination: Single AP view of the chest. COMPARISON: September 19, 2017 INDICATION: Cellulitis, congestive heart failure DISCUSSION: Lines/tubes: None. Lungs: Mildly improved interstitial and alveolar opacities, greater in the right lung. Pleura: There is no pleural effusion or pneumothorax. Heart and mediastinum: The heart and the mediastinum are unremarkable. Bones and soft tissues: No acute bony abnormalities. IMPRESSION: 1. Mildly improved interstitial and alveolar opacities, greater in the right lung likely reflecting edema. Signed by: Dr. James Wolff M.D. on 09/20/2017 6:58 AM Dictated By: JAMES WOLFF MD 7 Transcribed By: SUSANNAH on 09/20/17657 COPY TO: ROCIO ROMAN MD VENOUS DUPLEX LWR B/L [place] [address] Patient Name : ADAN COLEY MR #: [id number] : 1950 Age/Sex: 66/F Adm Physician : YORDY GIRON MD Admit Date : 09/18/17 Location : MED/SURG2 Room/Bed : [facility] REPORT: Cardiology Report DATE OF STUDY: September 19, 2017 DOPPLER SCAN OF LOWER EXTREMITIES VEINS The lower extremity veins were interrogated using the duplex scanning method. The veins were compressible. There was no definite deep venous thrombosis. CONCLUSION 1. No definite deep venous thrombosis involving the lower extremity veins bilaterally. 2. Suboptimal study. Job#: [id number] cc: MICHAEL DELANEY MD Signature Date Dictated By: ROCIO ROMAN MD Transcribed By: EDS on 09/20/17 <Electronically signed by ROCIO ROMAN MD><<Signature on File>>09/21/17 0941 COPY TO: CHEST SINGLE (PORTABLE) [place] [address] Patient Name: ADAN COLEY MR #: [id number] : 1950 Age/Sex: 66/F Req #: [id number] Adm Physician: MICHAEL DELANEY MD Ordered by: ROCIO ROMAN MD Report #: [id number] Location: [facility] Room/Bed: [facility] Procedure: [id number] DX/CHEST SINGLE (PORTABLE) Exam Date: 09/19/17 Exam Time: 1315 REPORT STATUS: Signed EXAM: Single AP view of the chest (Portable). COMPARISON: Chest radiograph from 09/18/2017 INDICATION: Shortness of breath FINDINGS: Single portable AP view of the chest. The visualized bones and soft tissues, cardiac silhouette pleura appear unchanged. IMPRESSION: 1. Lines/tubes: None 2. Interval decreased bilateral pulmonary edema. Signed by: Dr. Onelia Gutiérrez M.D. on 09/19/2017 1:38 PM Dictated By: ONELIA GUTIÉRREZ MD 37 Transcribed By: SUSANNAH on 09/19/171337 COPY TO: ROCIO ROMAN MD CHEST SINGLE (PORTABLE) [place] [address] Patient Name: ADNA COLEY MR #: [id number] : 1950 Age/Sex: 66/F Req #: [id number] Adm Physician: Ordered by: JASON CAMPOS MD Report #: [id number] Location: ER Room/Bed: Procedure: [id number] DX/CHEST SINGLE (PORTABLE) Exam Date: 09/18/17 Exam Time: 1215 REPORT STATUS: Signed PROCEDURE: A single AP view of the chest obtained at 1213 hrs. COMPARISON: Chest x-ray 09/10/17. INDICATIONS: RESPIRATORY DISTRESS FINDINGS: Lines/tubes: None. Lungs: New fluffy airspace opacities have developed throughout the right lung with sparing of the periphery. The left diaphragm is poorly visualized. The pulmonary vasculature is prominent, best visualized in the left upper lobe. Pleura: There is no pleural effusion or pneumothorax. Heart and mediastinum: There is stable cardiomegaly. Bones: Degenerative changes of the thoracic spine are stable. There no focal osseous lesions. IMPRESSION: 1. New airspace opacities in the right lung are suggestive of pulmonary edema or pneumonia in the appropriate clinical setting. Poor visualization of the left diaphragm could be due to atelectasis and small pleural effusion. 2. Stable cardiomegaly. Dictated by: Cyndy Doyle M.D. on 09/18/2017 at 12:54 Electronically approved by: Cyndy Doyle M.D. on 09/18/2017 at 12:54 Dictated By: CYNDY DOYLE MD 125 Transcribed By: IRENE on 09/18 1254 COPY TO: JASON CAMPOS MD CT FOOT RIGHT WO [place] [address] Patient Name: ADAN COLEY MR #: [id number] : 1950 Age/Sex: 66/F Req #: [id number] Adm Physician: YORDY GIRON MD Ordered by: YORDY GIRON MD Report #: [id number] Location: MED/SURG2 Room/Bed: [facility] Procedure: [id number] CT/CT FOOT RIGHT WO Exam Date: 09/11/17 Exam Time: 1545 REPORT STATUS: Signed Exam: Right footCT without contrast. History: Cellulitis. Chronic kidney disease. Diabetes. Swelling. Comparison:Radiographs September 10, 2017 Technique: Utilizing a 64-slice multidetector CT, axial imaging was performed through the right foot without IV contrast. Multiplanar reformation was performed. Findings: There is diffuse soft tissue swelling and skin ulceration at the plantar aspect of the great toe on the tibial side. This is best seen on axial series 501 image 16 and series 3 image 87. No adjacent well-formed fluid collection is seen. No underlying cortical destruction is seen to suggest osteomyelitis at this time. There is no acute fracture, dislocation or evidence of avascular necrosis. Scattered degenerative changes are seen. Scattered vascular calcifications are seen. There is diffuse muscle atrophy. There is diffuse soft tissue swelling about the ankle/foot. Impression: Findings consistent with skin ulceration and cellulitis at the plantar aspect of the great toe. No underlying cortical destruction is seen to suggest osteomyelitis at this time. Signed by: Dr. Ning Gongora M.D. on 09/11/2017 4:14 PM Dictated By: NING GONGORA MD, MD 13 Transcribed By: SUSANNAH on 09/11/171613 COPY TO: YORDY GIRON MD FOOT RIGHT COMPLETE [place] [address] Patient Name: ADAN COLEY MR #: [id number] : 1950 Age/Sex: 66/F Req #: [id number] Adm Physician: YORDY GIRON MD Ordered by: KEVIN HERRERA MD Report #: [id number] Location: MED/SURG2 Room/Bed: [facility] Procedure: [id number] DX/FOOT RIGHT COMPLETE Exam Date: 09/10/17 Exam Time: 2355 REPORT STATUS: Signed FOOT RIGHT COMPLETE HISTORY: Diabetic food with cellulitis. Evaluate for osteomyelitis. COMPARISON: None FINDINGS: Bones: No displaced fracture. There is diffuse demineralization. Multifocal area of solid periosteal reaction most likely due to venous stasis. Osseous alignment is within normal limits. Joints: Scattered degenerative changes of the mid and forefoot Soft tissues: Diffuse soft tissue edema with questionable defect at the plantar aspect of the first toe. Diffuse atherosclerotic disease of the visualized anterior tibial and peroneal arteries. IMPRESSION: No evidence of osteomyelitis. If clinical concern persists, MRI with and without contrast of the right food can be obtained. Signed by: Dr. Holger Manley M.D. on 09/11/2017 1:20 AM Dictated By: HOLGER MISHRA MD 9 Transcribed By: SUSANNAH on 09/11/17119 COPY TO: KEVIN HERRERA MD CHEST SINGLE (PORTABLE) [place] [address] Patient Name: ADAN COLEY MR #: [id number] : 1950 Age/Sex: 66/F Req #: [id number] Adm Physician: YORDY GIRON MD Ordered by: KEVIN HERRERA MD Report #: [id number] Location: MED/SURG2 Room/Bed: [facility] Procedure: [id number] DX/CHEST SINGLE (PORTABLE) Exam Date: 09/10/17 Exam Time: 2355 REPORT STATUS: Signed EXAMINATION: CHEST SINGLE (PORTABLE) INDICATION: Lower extremity cellulitis. COMPARISON: 04/18/2017 FINDINGS: TUBES and LINES: None. LUNGS: Lungs are not well inflated. There are bibasilar atelectasis. There is mild prominence of the central pulmonary vasculature, consistent with pulmonary venous congestion. PLEURA: No pleural effusion or pneumothorax. HEART AND MEDIASTINUM: Cardiac size is mildly enlarged. There are atherosclerotic calcifications within the aorta. BONES AND SOFT TISSUES: No acute osseous lesion. Soft tissues are unremarkable. UPPER ABDOMEN: No free air under the diaphragm. IMPRESSION: No acute thoracic abnormality. Mild enlargement of the heart with central vascular congestion. Signed by: Dr. Holger Manley M.D. on 09/11/2017 1:21 AM Dictated By: HOLGER MISHRA MD 0 Transcribed By: SUSANNAH on 09/11/17120 COPY TO: KEVIN HERRERA MD
[2018-11-12 18:07] LABS: BASOPHILS # (AUTO) 0.1 (0.0-0.1); BASOPHILS % 0.7 % (0.0-1.0); EOSINOPHILS # (AUTO) 0.1 (0.0-0.4); EOSINOPHILS % 1.1 % (0.0-6.0); HEMATOCRIT 36.5 % (34.2-44.1); HEMOGLOBIN 12.1 g/dL (12.0-16.0); LYMPHOCYTES # (AUTO) 1.5 (1.0-3.2); MEAN CORPUSCULAR HEMOGLOBIN 29.9 pg (28-32); MEAN CORPUSCULAR HGB CONC 33.2 g/dL (31-35); MEAN CORPUSCULAR VOLUME 90.1 fL (81-99); MONOCYTES # (AUTO) 0.5 (0.2-0.8); MONOCYTES % 5.7 % (4.4-11.3); NEUTROPHILS % 74.3 % (38.7-80.0); PLATELET COUNT 275 x10e3/uL (140-360); RED BLOOD COUNT 4.05 x10e6/uL (3.6-5.1); RED CELL DISTRIBUTION WIDTH 12.2 % (11.7-14.4)
[2018-11-12 18:12] LABS: INR 0.87; PROTHROMBIN TIME 12.6 seconds (11.9-14.5)
[2018-11-12 18:13] LABS: PARTIAL THROMBOPLASTIN TIME 26.7 seconds (23.8-35.5)
[2018-11-12 18:21] LABS: ALANINE AMINOTRANSFERASE 10 IU/L (0-55); ALBUMIN 3.3 g/dL (3.5-5.0); ALBUMIN/GLOBULIN RATIO 0.7 (0.8-2.0); ALKALINE PHOSPHATASE 106 IU/L (40-150); ANION GAP 17.3 mmol/L (8-16); BLOOD UREA NITROGEN 38 mg/dL (7-26); BUN/CREATININE RATIO 22 (6-25); CALCIUM 9.7 mg/dL (8.4-10.2); CARBON DIOXIDE 25 mmol/L (22-29); CHLORIDE 97 mmol/L (98-107); CREATINE KINASE 74 IU/L (29-168); CREATININE, SERUM 1.71 mg/dL (0.57-1.11); EST GLOMERULAR FILTRATION RATE 30 ML/MIN (60-); GLUCOSE 369 mg/dL (74-118); SODIUM 134 mmol/L (136-145)
[2018-11-12 18:23] LABS: POTASSIUM 5.3 mmol/L (3.5-5.1)
--- NOTE | 2018-11-12 19:34 | Diagnostic Imaging Report ---
EXAMINATION: CHEST SINGLE (PORTABLE) COMPARISON: Chest x-ray 11/18/2017 INDICATION: Kidney problems DISCUSSION: Frontal view of the chest obtained at 1901 hours. HEART AND MEDIASTINUM: Stable cardiomegaly. Central pulmonary arteries are prominent. LINES: None. LUNGS: Low lung volumes and bibasilar atelectasis. Pulmonary vascular markings are prominent. There is mild eventration of the left diaphragm. PLEURA: No large effusions. No pneumothorax. BONES AND SOFT TISSUES: No focal osseous lesion. The soft tissues are normal. IMPRESSION: Cardiomegaly with central vascular prominence. Please correlate with history of of pulmonary artery hypertension. Low lung volumes and bibasilar atelectasis. Signed by: Dr. Cyndy Paredes MD on 11/12/2018 7:30 PM
[2018-11-12] MEDS ORDERED: INSULIN REGULAR, HUMAN 100 UNIT/1 ML 3ML VIAL IV ONE (21:00)
[2018-11-12] MEDS ORDERED: SODIUM CHLORIDE 0.9% 500ML 500 ML IV ONE (21:00)
[2018-11-12 23:24] LABS: CLARITY,URINE CLOUDY (CLEAR); COLOR,URINE YELLOW (YELLOW); KETONES,URINE NEGATIVE (NEGATIVE); LEUKOCYTE ESTERASE ,URINE 1+ (NEGATIVE); NITRITE,URINE NEGATIVE (NEGATIVE); PROTEIN,URINE DIPSTICK NEGATIVE (NEGATIVE)
[2018-11-12 23:25] LABS: BILIRUBIN,URINE NEGATIVE (NEGATIVE); URINE UROBILINOGEN 0.2 mg/dL (0.2 - 1)
[2018-11-12 23:42] LABS: BACTERIA,URINE MANY /HPF; EPITHELIAL CELLS,URINE MODERATE /LPF; RBC,URINE 0-5 /HPF (0-5); WBC,URINE (MAN) 21-50 /HPF (0-5)
[2018-11-12 23:50] LABS: ANION GAP 17.1 mmol/L (8-16); CALCIUM 9.2 mg/dL (8.4-10.2); CREATININE, SERUM 1.57 mg/dL (0.57-1.11); POTASSIUM 4.1 mmol/L (3.5-5.1)
[2018-11-13 00:29] VITALS: BP 138/70
== END 2018-11-13 00:31 | disposition home or self-care (01) ==
LOC: ER 16:22
DX: E87.5 Hyperkalemia (principal); E11.65 Type 2 diabetes mellitus with hyperglycemia; E11.22 Type 2 diabetes mellitus with diabetic chronic kidney disease; I12.9 Hypertensive chronic kidney disease with stage 1 through stage 4 chronic kidney disease, or unspecified chronic kidney disease; N18.9 Chronic kidney disease, unspecified; Z83.3 Family history of diabetes mellitus; Z82.49 Family history of ischemic heart disease and other diseases of the circulatory system; Z79.4 Long term (current) use of insulin
CPT/HCPCS: 36415; 71045; 80048; 80053; 81001; 82550; 82553; 82948; 83880; 84484; 85025; 85610; 85730; 96374; 99284; J1817; J7040

== ENCOUNTER 2020-03-08 16:34 | Observation (INO) | payer OTHER, MEDICARE ==
[~2020-03-08] VITALS: Ht 160 cm; Wt 133.4 kg
[2020-03-08 17:31] LABS: BASOPHILS # (AUTO) 0.1 (0.0-0.1); BASOPHILS % 0.7 % (0.0-1.0); EOSINOPHILS # (AUTO) 0.4 (0.0-0.4); EOSINOPHILS % 5.5 % (0.0-6.0); HEMATOCRIT 32.2 % (34.2-44.1); HEMOGLOBIN 9.7 g/dL (12.0-16.0); LYMPHOCYTES # (AUTO) 1.1 (1.0-3.2); LYMPHOCYTES % 15.3 % (18.0-39.1); MEAN CORPUSCULAR HEMOGLOBIN 27.5 pg (28-32); MEAN CORPUSCULAR HGB CONC 30.1 g/dL (31-35); MEAN CORPUSCULAR VOLUME 91.2 fL (81-99); MONOCYTES # (AUTO) 0.5 (0.2-0.8); MONOCYTES % 6.7 % (4.4-11.3); NEUTROPHILS # (AUTO) 5.3 (2.1-6.9); NEUTROPHILS % 71.3 % (38.7-80.0); PLATELET COUNT 273 x10e3/uL (140-360); RED BLOOD COUNT 3.53 x10e6/uL (3.6-5.1); RED CELL DISTRIBUTION WIDTH 15.1 % (11.7-14.4)
--- NOTE | 2020-03-08 17:53 | Diagnostic Imaging Report ---
EXAMINATION: CHEST SINGLE (PORTABLE) INDICATION: Swollen legs ^ERMD ORDER ^[id number] ^1730 ^Y COMPARISON: 11/12/2018 FINDINGS: TUBES and LINES: None. LUNGS: Low lung volumes and bibasilar atelectasis. Pulmonary vascular congestion. PLEURA: Possible small left pleural effusion. No pneumothorax HEART AND MEDIASTINUM: Cardiomegaly. Central pulmonary arteries are prominent. BONES AND SOFT TISSUES: No acute osseous lesion. Soft tissues are unremarkable. UPPER ABDOMEN: No free air under the diaphragm. IMPRESSION: Cardiomegaly with central vascular prominence. Please correlate with history of of pulmonary artery hypertension. Low lung volumes and bibasilar atelectasis. Possible small left pleural effusion. Follow-up imaging is indicated to document clearing. Signed by: Dr. Venkat Gongora M.D. on 03/08/2020 5:50 PM
[2020-03-08 18:31] LABS: ALBUMIN/GLOBULIN RATIO 0.7 (0.8-2.0); ANION GAP 8.7 mmol/L (8-16); CALCIUM 8.6 mg/dL (8.4-10.2); CREATININE, SERUM 1.7 mg/dL (0.57-1.11); POTASSIUM 4.7 mmol/L (3.5-5.1)
[2020-03-08 18:37] LABS: CREATINE KINASE MB 1.4 ng/mL (0-5.0)
[2020-03-08] MEDS ORDERED: FUROSEMIDE INJ 10 MG/ML 4 ML VIAL IV ONE (18:45)
[2020-03-08] MEDS ORDERED: LEVOCETIRIZINE D5 MG PO (19:22)
[2020-03-08] MEDS ORDERED: NIFEDIPINE ER30 M1 PO (19:22)
[2020-03-08] MEDS ORDERED: GLIPIZIDE ER5 MG PO (19:22)
[2020-03-08] MEDS ORDERED: ASPIR 8181 MG PO (19:23)
[2020-03-08] MEDS ORDERED: DEXTROSE 50% SYRINGE 50 ML IV PRN (19:30)
[2020-03-08] MEDS ORDERED: HYDRALAZINE HCL 20 MG/ML VIAL IV PRN ×2 (19:30→20:30)
[2020-03-08 20:30] VITALS: BP 155/83
--- NOTE | 2020-03-08 20:41 | NUR ---
RECEIVED PATIENT FROM ED AT THIS TIME VIA WHEELCHAIR. AMBULATED WITH ASSISTANCE TO BED. PATIENT A&OX3. LUNG SOUNDS CLEAR. BOWEL SOUNDS ACTIVE. LAST BM 03/07. PITTING EDEMA +2 TO BILATERAL LOWER EXTREMITIES. BILATERAL GREAT TOE AMPUTATIONS. O2 @ 2L VIA NC. R AC 20G ASYMPTOMATIC, INTACT, AND PATENT. SKIN INTACT. PATIENT ORIENTED TO ROOM AND CALL LIGHT SYSTEM. NO NEEDS EXPRESSED. BED LOCKED IN LOWEST POSITION, SIDE RAILS UPX2, CALL LIGHT IN REACH.
[2020-03-08] MEDS ORDERED: FUROSEMIDE INJ 10 MG/ML 4 ML VIAL IV SCH (21:00)
[2020-03-08] MEDS: ATORVASTATIN 40 MG TAB PO SCH (21:00)
[2020-03-08] MEDS: INSULIN REGULAR, HUMAN 100 UNIT/1 ML 3ML VIAL SQ SCH (21:00)
[2020-03-08] MEDS: NIFEDIPINE CR 30 MG TAB PO SCH (22:29)
[2020-03-08] MEDS: INSULIN GLARGINE 100 UNITS/ML VIAL SC SCH (22:29)
[2020-03-09] VITALS (10 sets, daily range): BP systolic 105–155; BP diastolic 52–90
--- NOTE | 2020-03-09 04:15 | NUR ---
PATIENT AMBULATED WITH ASSISTANCE TO TOILET PER PATIENT REQUEST. BEDSIDE COMMODE OFFERED, BUT PATIENT WANTED THE TOILET. STEADY, SLOW GAIT NOTED WITH STANDBY ASSISTANCE. REMINDED PATIENT TO CALL NEXT TIME SHE NEEDS TO VOID, PATIENT VERBALIZED UNDERSTANDING.
[2020-03-09 05:15] LABS: BASOPHILS % 0.4 % (0.0-1.0); EOSINOPHILS # (AUTO) 0.4 (0.0-0.4); EOSINOPHILS % 5.5 % (0.0-6.0); HEMATOCRIT 28.2 % (34.2-44.1); HEMOGLOBIN 8.4 g/dL (12.0-16.0); LYMPHOCYTES % 14.1 % (18.0-39.1); MEAN CORPUSCULAR HEMOGLOBIN 27.5 pg (28-32); MEAN CORPUSCULAR HGB CONC 29.8 g/dL (31-35); MEAN CORPUSCULAR VOLUME 92.2 fL (81-99); MONOCYTES # (AUTO) 0.5 (0.2-0.8); MONOCYTES % 7.2 % (4.4-11.3); NEUTROPHILS # (AUTO) 5.3 (2.1-6.9); NEUTROPHILS % 72.5 % (38.7-80.0); PLATELET COUNT 226 x10e3/uL (140-360); RED BLOOD COUNT 3.06 x10e6/uL (3.6-5.1)
[2020-03-09 05:55] LABS: ANION GAP 8.3 mmol/L (8-16); CALCIUM 8.5 mg/dL (8.4-10.2); CREATININE, SERUM 1.6 mg/dL (0.57-1.11); POTASSIUM 4.3 mmol/L (3.5-5.1)
[2020-03-09] MEDS ORDERED: FUROSEMIDE INJ 10 MG/ML 4 ML VIAL IV SCH (06:00)
[2020-03-09] MEDS: INSULIN REGULAR, HUMAN 100 UNIT/1 ML 3ML VIAL SQ SCH ×4 (07:30→21:33)
[2020-03-09] MEDS: LORATADINE 10 MG TAB PO SCH (08:50)
[2020-03-09] MEDS: ASPIRIN 81 MG CHEW TAB PO SCH (08:50)
[2020-03-09] MEDS: GLIPIZIDE 5 MG TAB ER PO SCH (08:50)
[2020-03-09] MEDS: PANTOPRAZOLE SOD 40 MG TABEC PO SCH (08:50)
[2020-03-09] MEDS: NIFEDIPINE CR 30 MG TAB PO SCH (08:51)
[2020-03-09] MEDS: INSULIN GLARGINE 100 UNITS/ML VIAL SC SCH ×2 (08:55→21:32)
[2020-03-09] MEDS ORDERED: POTASSIUM CHLORIDE 10MEQ EA PO ONE (09:50)
[2020-03-09] MEDS ORDERED: FUROSEMIDE INJ 10 MG/ML 4 ML VIAL IV ONE (10:00)
--- NOTE | 2020-03-09 10:00 | NUR ---
Pt. expressed no spiritual or emotional concerns at this time. Panel Beater provided hospitality. No need to follow at this time. [facility] O: [phone]
--- NOTE | 2020-03-09 10:17 | History and Physical ---
CHIEF COMPLAINT: Increasing shortness of breath. PRIMARY CARE PHYSICIAN: Dr. Danna Enriquez. HISTORY OF PRESENT ILLNESS: This is a 69-year-old female with diastolic dysfunction, congestive heart failure. Apparently was drinking quite a bit amount of fluids and eating more with salt, came in with acute congestive heart failure. The patient is otherwise stable. She is doing much better. Her lower extremity swelling has subsided, but remain with edematous. Her BNP on admission was 407. The patient is only taking low-dose diuretic at home with Lasix 40 mg once a day. The patient is otherwise stable. No cough. No fever. No night sweats. No shortness of breath at rest. Exertional shortness of breath, more so than previously. PAST MEDICAL HISTORY: Morbid obesity, obstructive sleep apnea, diastolic dysfunction, congestive heart failure, pulmonary hypertension, diabetes type 2, on insulin therapy, lymphedema, lower extremity chronic venous stasis, skin changes lower extremities, dyslipidemia, reflux history, hiatal hernia, dyslipidemia, peripheral vascular disease. PAST SURGICAL HISTORY: Amputation of the left 2nd toe. Appendectomy. SOCIAL HISTORY: The patient does not smoke or use alcohol. No regular drug. ALLERGIES: NO KNOWN ALLERGIES. HOME MEDICATIONS: List is reviewed. REVIEW OF SYSTEMS: Dyspnea on exertion. Increasing swelling of the lower extremity and lower extremity edema. No chest pain. No abdominal pain. No headache. No fever, chills, night sweats or sweating. PHYSICAL EXAMINATION: VITAL SIGNS: Temperature is 98, blood pressure 150/64, pulse rate 77, respiration 20. GENERAL: The patient is awake. She is sitting on her bed. HEENT: Normocephalic and atraumatic. Anicteric. NECK: Supple grossly. PULMONARY: Diminished breath sounds at bases all those difficult to assess. The patient has diminished breath sounds. There is no wheezing however. She is morbidly obese, poor body habitus. HEART: Regular rate and rhythm. ABDOMEN: Obesity. EXTREMITIES: 2+ edema associated with chronic venous skin changes. NEUROLOGIC: The patient moving all extremities. No focal deficit. LABORATORY DATA: Sodium 145, potassium 4.3, chloride 111, bicarb 30, BUN 38, creatinine 1.6, glucose is 127. WBC 7.25, hemoglobin 8.4, hematocrit 28.2, platelets is 226. Chest x-ray, vascular congestion. IMPRESSION: 1. Acute on chronic diastolic dysfunction, congestive heart failure exacerbation. 2. Morbid obesity. 3. Pulmonary hypertension. 4. Sleep apnea. 5. Multiple baseline problem as mentioned above. PLAN: Aggressive diuresis using IV furosemide. Resume home medication. Careful on insulin due to diet control here in the hospital. Replace electrolytes if needed. Observation for now and continue to diurese the patient and advised fluid restriction for now with 1600 mL per 24 hours. MD LISSA Cameron/MODL /[id number]
[2020-03-09] MEDS: FUROSEMIDE INJ 10 MG/ML 4 ML VIAL IV SCH ×2 (14:08→22:25)
--- NOTE | 2020-03-09 19:00 | NUR ---
RECEIVED REPORT FROM [facility] NURSE. AAOX3. RESTING IN BED. R AC 20G SALINE LOCK. NO SIGNS OF INFILTRATION. NC AT 2L/MIN. BED LOCKED AND IN LOW POSITION. CALL LIGHT WITHIN REACH. INSTRUCTED TO USE CALL LIGHT IF ASSISTANCE IS NEEDED.
[2020-03-09] MEDS: ATORVASTATIN 40 MG TAB PO SCH (21:29)
[2020-03-10 00:37] VITALS: BP 107/90
[2020-03-10 04:00] VITALS: BP 137/76
[2020-03-10 05:46] LABS: ANION GAP 10.8 mmol/L (8-16); CALCIUM 9.1 mg/dL (8.4-10.2); CREATININE, SERUM 1.65 mg/dL (0.57-1.11); POTASSIUM 4.8 mmol/L (3.5-5.1)
[2020-03-10] MEDS: FUROSEMIDE INJ 10 MG/ML 4 ML VIAL IV SCH (06:35)
[2020-03-10] MEDS: INSULIN REGULAR, HUMAN 100 UNIT/1 ML 3ML VIAL SQ SCH ×2 (07:30→11:39)
--- NOTE | 2020-03-10 07:36 | NUR ---
RECEIVED BEDSIDE SHIFT REPORT FROM OFF GOING NURSE. PATIENT IS RESTING IN BED. NO ACUTE DISTRESS NOTED. CALL LIGHT WITHIN REACH. BED IN THE LOWEST POSITION.
--- NOTE | 2020-03-10 07:44 | NUR ---
REPORT GIVEN TO DAYSHIFT NURSE. SITTING AT BEDSIDE WITH BREAKFAST TRAY. AAOX3. R AC 20G SALINE LOCK. NO SIGNS OF INFILTRATION. BED LOCKED AND IN LOW POSITION. BED ALARM ON. CALL LIGHT WITHIN REACH.
[2020-03-10 08:00] VITALS: BP 135/63
[2020-03-10] MEDS ORDERED: POTASSIUM CHLORIDE 10MEQ EA PO SCH (09:00)
[2020-03-10] MEDS: LORATADINE 10 MG TAB PO SCH (09:10)
[2020-03-10] MEDS: GLIPIZIDE 5 MG TAB ER PO SCH (09:10)
[2020-03-10] MEDS: ASPIRIN 81 MG CHEW TAB PO SCH (09:10)
[2020-03-10] MEDS: PANTOPRAZOLE SOD 40 MG TABEC PO SCH (09:10)
[2020-03-10] MEDS: INSULIN GLARGINE 100 UNITS/ML VIAL SC SCH (09:11)
[2020-03-10] MEDS: NIFEDIPINE CR 30 MG TAB PO SCH (09:11)
[2020-03-10] MEDS ORDERED: FUROSEMIDE INJ 10 MG/ML 4 ML VIAL IV NR (10:00)
--- NOTE | 2020-03-10 10:03 | NUR ---
PER DR. GIRON TAKE O2 OFF AND ASSESS O2 SAT. O2 SATURATION 96% ON ROOM AIR.
--- NOTE | 2020-03-10 10:26 | Discharge Summary ---
PCP: Dr. Danna Enriquez The patient on observation. FINAL DIAGNOSES: Acute on chronic diastolic dysfunction and congestive heart failure exacerbation secondary to over consumption of water and increase in salt intake. SUMMARY: The patient is a 69-year-old female, morbidly obese, greater than 52 of BMI, came in with increasing shortness of breath. The patient has dependent lower extremity edema due to lymphedema. She has had increasing shortness of breath because she was drinking a lot of water as she was told by her friends and family. The patient is now on fluid restriction of 1500 mL per 24 hours. She does have diabetes type 2 and does have chronic kidney disease. She has also had obstructive sleep apnea. The patient has pulmonary hypertension. She is stable. She is chronically anemic due to chronic kidney disease. The patient is stable, discharged home. Increased the furosemide to 40 mg twice a day instead of once a day and fluid restriction of 1500 mL by 24 hours. The patient oxygen saturation is adequate at 96% on room air. No oxygen needed. The patient is stable and discharged home today. Resume home medication with some adjustment. MD LISSA Cameron/NADEGE /[id number]
[2020-03-10 11:15] VITALS: BP 135/63
[2020-03-10 11:42] VITALS: BP 140/72
--- NOTE | 2020-03-10 12:05 | NUR ---
RECEIVED DISCHARGE ORDER FROM DR. GIRON, PATIENT IS IN STABLE CONDITION. IV LINE TO RIGHT ANTECUBITAL DISCONTINUED WITH TIP INTACT, PRESSURE APPLIED TO SITE, NO BLEEDING NOTED. DISCHARGE TEACHING PROVIDED TO PATIENT, SHE VERBALIZED UNDERSTANDING. DISCHARGE FOLDER WITH PAPERWORK AND PRESCRIPTIONS ON HAND. PATIENT ACCOMPANIED TO PRIVATE AUTO VIA WHEELCHAIR BY STAFF.
== END 2020-03-10 12:08 | disposition home or self-care (01) ==
LOC: ER 16:34 → ERHOLD 18:36 → MED/SURG 20:34
PROVIDERS: ADMIT Internal Medicine; ATTEND Internal Medicine
DX: I13.0 Hypertensive heart and chronic kidney disease with heart failure and stage 1 through stage 4 chronic kidney disease, or unspecified chronic kidney disease (principal); I50.33 Acute on chronic diastolic (congestive) heart failure; G47.33 Obstructive sleep apnea (adult) (pediatric); E11.22 Type 2 diabetes mellitus with diabetic chronic kidney disease; N18.9 Chronic kidney disease, unspecified; D63.1 Anemia in chronic kidney disease
CPT/HCPCS: 36415 ×3; 71045; 80048 ×2; 80053; 82550; 82553; 82948 ×3; 83880; 84484; 85025 ×2; 93005; 96372; 99284; G0378 ×3; J1815; J1817; J1940 ×3; S0164 ×2

== ENCOUNTER 2020-08-07 22:22 | Emergency (ER) | payer MEDICARE ==
[~2020-08-07] VITALS: Ht 160 cm; Wt 133.4 kg
[~2020-08-07 22:22] MED LIST changes: +ASPIR 8181 MG PO; +GLIPIZIDE ER5 MG PO; +LEVOCETIRIZINE D5 MG PO; +NIFEDIPINE ER30 M1 PO
--- NOTE | 2020-08-07 23:02 | Emergency Department Note ---
History of Present Illnes History of Present Illness Chief Complaint: Skin Rash or Abscess History of Present Illness This is a 69 year old female PRESENTS TO ED WITH RASH TO BUE, BACK X1 WEEK FOLLOWING RX OF AMOXICILLIN; RESP ARE EVEN AND UNLABORED, O2 SAT RA 99% . Historian: Patient, Family Member Arrival Mode: Car Porter Sample Case Required: Yes Onset (how long ago): day(s) (7) Location: ARMS AND BACK Quality: RASH WITH ITCHING Radiation: Reports non-radiation Severity: mild Onset quality: sudden Duration (how long): day(s) (7) Timing of current episode: constant Progression: unchanged Chronicity: new Context: Reports new medications (AMOXIL); Denies recent illness, Denies recent surgery, Denies trauma/injury Relieving factors: none Exacerbating factors: none Associated symptoms: Reports denies other symptoms Treatments prior to arrival: none Past Medical/Family History Physician Review I have reviewed the patient's past medical and family history. Any updates have been documented here. Past Medical History Recent Fever: No Clinical Suspicion of Infectio: No New/Unexplained Change in Ment: No Past Medical History: Hypertension, Diabetes, GERD, Hyperlipedemia, Chronic Kidney Disease Other Medical History: HIGH CHOLESTEROL CKD Other Surgery: Great toe Right foot amputated. Lt foot toe amputation Lt femur fx w/ana placement Social History Smoking Cessation: Never Smoker Counseling Performed: No Alcohol Use: None Any Illegal Drug Use: No Other Last Tetanus: UNK Any Pre-Existing Lines (PICC,: No Review of Systems Review of Systems Constitutional: Reports no symptoms EENTM: Reports no symptoms Cardiovascular: Reports no symptoms Respiratory: Reports no symptoms Gastrointestinal: Reports no symptoms Genitourinary: Reports no symptoms Musculoskeletal: Reports no symptoms Integumentary: Reports as per HPI Neurological: Reports no symptoms Psychological: Reports no symptoms Endocrine: Reports no symptoms Hematological/Lymphatic: Reports no symptoms Physical Exam Related Data Allergies: Coded Allergies: No Known Allergies (Unverified , 11/12/18) Triage Vital Signs Vital Signs Date Time Temp Pulse Resp B/P (MAP) Pulse Ox O2 Delivery O2 Flow Rate FiO2 08/07/20 22:54 98.3 87 18 131/56 98 Room Air Vital signs reviewed: Yes Physical Exam CONSTITUTIONAL Constitutional: Present well-developed, Present well-nourished; Absent distressed HENT HENT: Present normocephalic, Present atraumatic, Present oropharynx clear/moist, Present nose normal HENT L/R: Present left ext ear normal, Present right ext ear normal EYES Eyes: Reports PERRL, Reports conjunctivae normal NECK Neck: Present ROM normal PULMONARY Pulmonary: Present effort normal, Present breath sounds normal CARDIOVASCULAR Cardiovascular: Present regular rhythm, Present heart sounds normal, Present capillary refill normal, Present normal rate GASTROINTESTINAL Abdominal: Present soft, Present nontender, Present bowel sounds normal GENITOURINARY Genitourinary: Present exam deferred SKIN Skin: Present warm, Present dry, Present rash (TO ARMS AND UPPER BACK, MACULOPAPULAR) MUSCULOSKELETAL Musculoskeletal: Present ROM normal NEUROLOGICAL Neurological: Present alert, Present oriented x 3, Present no gross motor or sensory deficits PSYCHOLOGICAL Psychological: Present mood/affect normal, Present judgement normal Assessment & Plan Medical Decision Making MDM PT WITH RASH TO ARMS AND BACK STARTING WHILE ON AMOXIL PT PRESCRIBED MEDROL DOSE PACK Assessment & Plan Final Impression: (1) Allergic reaction (2) Rash Depart Disposition: HOME, SELF-CARE Last Vital Signs Date Time Temp Pulse Resp B/P (MAP) Pulse Ox O2 Delivery O2 Flow Rate FiO2 08/07/20 22:54 98.3 87 18 131/56 98 Room Air Home Meds Reported Medications Aspirin (ASPIR 81) 81 Mg Tablet.dr, 81 MG PO DAILY 03/08/20 Glipizide (GLIPIZIDE ER) 5 Mg Tab.er.24, 5 MG PO DAILY 03/08/20 Nifedipine (NIFEDIPINE ER) 30 Mg Tab.er.24, 60 MG PO DAILY 03/08/20 Levocetirizine Dihydrochloride (LEVOCETIRIZINE DIHYDROCHLORIDE) 5 Mg Tablet, 5 MG PO DAILY 03/08/20 Insulin Detemir (LEVEMIR) 100 Unit/1 Ml Vial, 30 UNITS SC HS 11/21/17 Insulin Detemir (LEVEMIR) 100 Unit/1 Ml Vial, 50 UNITS SC ACB 11/21/17 Furosemide (LASIX) 40 Mg Tablet, 40 MG PO TWICE DAILY 09/28/17 Omeprazole (OMEPRAZOLE) 40 Mg Capsule.dr, 40 MG PO DAILY 09/11/17 Atorvastatin Calcium (Lipitor) 80 Mg Tablet, 40 MG PO DAILY 07/20/12 HARJINDER CARDENAS MD Aug 07, 2020 23:02
--- OUTSIDE RECORDS SUMMARY | 2020-08-08 01:13 | XMS REPORT | Continuity of Care Document ---
Author Author [facility] t Organization [facility] Address [address] [place] [address] Phone Unavailable Care Team Providers Care Personnel Manager Name Role Phone KALEIGH REGALADO MD PCP ASHLEY SY Attphys Unavailable Arianna HERRERA Attphys Unavailable GIRONYORDY Attphys Unavailable Enid CAMPOS Attphys Unavailable GIRON, YORDY Admphys Unavailable Payers Payer Name Policy Type Policy Number Effective Date Expiration Date S yuniel [facility] [id number] 2017 00:00:00 Formerly [facility] [place] [id number] 2015 00:00:00 Formerly [facility] [employer] Medicare Advantage [id number] 2015 00:00:00 [facility] Problems Condition Name Condition Details Condition Category Status Onset Date Resolution Date Last Treatment Date Treating Clinician Comments Source Congestive heart failure CHF (congestive heart failure) Problem Active [facility] Chronic kidney disease CKD (chronic kidney disease) Problem Active [facility] Cellulitis Cellulitis Problem Active [facility] Diabetes mellitus Diabetes Problem Active [facility] Diabetic foot ulcer Diabetic foot ulcer Problem Active [facility] Hypomagnesemia Hypomagnesemia Problem Active [facility] Renal insufficiency Renal insufficiency Problem Active [facility] Respiratory failure Respiratory failure Problem Active [facility] Secondary anemia Symptomatic anemia Problem Active [facility] Urinary tract infection UTI (urinary tract infection) Problem Active [facility] Retention of urine Urinary retention Problem Active [facility] Allergies, Adverse Reactions, Alerts This patient has no known allergies or adverse reactions. Medications Ordered Medication Name Filled Medication Name Start Date Stop Da te Current Medication? Ordering Clinician Indication Dosage Frequency Signature (SIG) Comments Components Source Aspirin (Aspir 81) 81 Mg Tablet. Aspirin (Aspir 81) 81 Mg Tablet. Yes 81 Daily [facility] Atorvastatin Calcium (Lipitor) 80 Mg Tablet Atorvastat in Calcium (Lipitor) 80 Mg Tablet Yes 40 Daily [facility] Furosemide (Lasix) 40 Mg Tablet Furosemide (Lasix) 40 Mg Tablet Yes 40 Twice Daily [facility] Glipizide (Glipizide Er) 5 Mg Tab.er.24 Glipizide (Glipizide Er) 5 Mg Tab.er.24 Yes 5 Daily [facility] Insulin Detemir (Levemir) 100 Unit/1 Ml Vial Insulin D etemir (Levemir) 100 Unit/1 Ml Vial Yes 50 Before Breakfast [facility] Insulin Detemir (Levemir) 100 Unit/1 Ml Vial Insulin D etemir (Levemir) 100 Unit/1 Ml Vial Yes 30 Bedtime [facility] Levocetirizine Dihydrochloride 5 Mg Tablet Levocetiriz ine Dihydrochloride 5 Mg Tablet Yes 5 Daily [facility] Nifedipine (Nifedipine Er) 30 Mg Tab.er.24 Nifedipine (Nifedipine Er) 30 Mg Tab.er.24 Yes 60 Daily [facility] Omeprazole 40 Mg Capsule. Omeprazole 40 Mg Capsule. Yes [address] [facility] Tramadol Hcl (Ultram) 50 Mg Tablet, 50 Mg Oral Tramado l Hcl (Ultram) 50 Mg Tablet, 50 Mg Oral 2020-03-08 00:00:00 No 50 Every 8 Hours as needed for Pain [facility] Bacid , 2 Tab Oral Bacid , 2 Tab Oral 2017-11-22 00:00:00 No 2 Daily [facility] Cephalexin 500 Mg Capsule, 500 Mg Oral Cephalexin 500 Mg Capsule , 500 Mg Oral 2017-11-22 00:00:00 No 500 Four Times Daily [facility] Ciprofloxacin Hcl (Cipro) 500 Mg Tablet, 500 Mg Oral C iprofloxacin Hcl (Cipro) 500 Mg Tablet, 500 Mg Oral 2017-11-22 00:00:00 No 500 Twice A Day [facility] Doxycycline Hyclate 100 Mg Capsule, 100 Mg Oral Doxycy lara Hyclate 100 Mg Capsule, 100 Mg Oral 2017-11-22 00:00:00 No 100 Twi ce A Day [facility] Losartan Potassium 100 Mg Tablet, 100 Mg Oral Losartan Potassium 100 Mg Tablet, 100 Mg Oral 2017-11-22 00:00:00 No 100 Daily [facility] Metformin Hcl 500 Mg Tablet, 1000 Mg Oral Metformin Hc l 500 Mg Tablet, 1000 Mg Oral 2017-11-22 00:00:00 No 1000 Twice Daily With M eals [facility] Nifedipine (Procardia Xl) 30 Mg Tab.er.24, 30 Mg Oral Nifedipine (Procardia Xl) 30 Mg Tab.er.24, 30 Mg Oral 2017-11-22 00:00:00 No 30 Daily [facility] Fluconazole 100 Mg Tablet, 150 Mg Oral Fluconazole 100 Mg Tablet , 150 Mg Oral 2017-11-15 00:00:00 No 150 Daily [facility] Insulin Detemir (Levemir) 100 Unit/1 Ml Vial, 15 Units Sub-Q Insulin Detemir (Levemir) 100 Unit/1 Ml Vial, 15 Units Sub-Q 2017-11-15 00:00:00 No 15 Before Breakfast [facility] Insulin Detemir (Levemir) 100 Unit/1 Ml Vial, 30 Units Sub-Q Insulin Detemir (Levemir) 100 Unit/1 Ml Vial, 30 Units Sub-Q 2017-11-15 00:00:00 No 30 Bedtime [facility] Potassium Chloride 10 Meq Tab.er.prt, 10 Meq Oral Pota ssium Chloride 10 Meq Tab.er.prt, 10 Meq Oral 2017-11-15 00:00:00 No 10 Daily [facility] Carvedilol (Coreg) 6.25 Mg Tab, Oral Carvedilol (Coreg) 6.25 M g Tab, Oral 2017-09-28 00:00:00 No Twice A Day [facility] Ciprofloxacin Hcl (Cipro) 500 Mg Tablet, 500 Mg Oral C iprofloxacin Hcl (Cipro) 500 Mg Tablet, 500 Mg Oral 2017-09-28 00:00:00 No 500 Daily [facility] Furosemide 40 Mg Tablet, 40 Mg Oral Furosemide 40 Mg Tablet, 40 Mg Oral 2017-09-28 00:00:00 No 40 Daily [facility] Metformin Hcl 500 Mg Tablet, 500 Mg Oral Metformin Hcl 500 Mg Tablet, 500 Mg Oral 2017-09-28 00:00:00 No 500 Twice A Day [facility] Nifedipine 10 Mg Cap, 30 Mg Oral Nifedipine 10 Mg Cap, 30 Mg Ora l 2017-09-28 00:00:00 No 30 Three Times A Day [facility] Metformin Hcl 500 Mg Tablet, 1000 Mg Oral Metformin Hc l 500 Mg Tablet, 1000 Mg Oral 2017-09-17 00:00:00 No 1000 Twice A Day [facility] Levemir , 40 Levemir , 40 2017-09-10 00:00:00 No 40 Bedtime [facility] Omeprazole 40 Mg Capsule., 40 Mg Oral Omeprazole 40 Mg Cap soledad., 40 Mg Oral 2017-09-10 00:00:00 No 40 Daily [facility] Psyllium Seed (With Sugar) (Metamucil Packet) 1 Each P acket, 6 Each Oral Psyllium Seed (With Sugar) (Metamucil Packet) 1 Each Packet, 6 Each Oral 2017-09-10 00:00:00 No 6 Daily [facility] Tramadol Hcl (Ultram) 50 Mg Tablet, 50 Mg Oral Tramado l Hcl (Ultram) 50 Mg Tablet, 50 Mg Oral 2017-09-10 00:00:00 No 50 Every 6 Hours as needed for Pain [facility] Aspirin (Aspir 81) 81 Mg Tablet., 1 Aspirin (Aspir 81) 81 Mg T , 1 2017-04-24 00:00:00 No 1 [facility] Meloxicam 7.5 Mg Tablet, 7.5 Mg Oral Meloxicam 7.5 Mg Tablet, 7. 5 Mg Oral 2017-04-24 00:00:00 No 7.5 Daily [facility] Metformin Hcl 500 Mg Tablet, 1000 Mg Oral Metformin Hc l 500 Mg Tablet, 1000 Mg Oral 2017-04-24 00:00:00 No 1000 Twice A Day [facility] Lisinopril 20 Mg Tablet, 20 Mg Oral Lisinopril 20 Mg Tablet, 20 Mg Oral 2017-04-18 00:00:00 No 20 Daily [facility] Sennosides/Docusate Sodium (Stool Softener Tablet) 1 E ach Tablet, 1 Each Oral Sennosides/Docusate Sodium (Stool Softener Tablet) 1 Each Tablet, 1 Each Oral 2017-04-18 00:00:00 No 1 Daily [facility] Procedures This patient has no known procedures. Encounters Start Date/Time End Date/Time Encounter Type Admission Type Attendi [facility] Facility Care Department Encounter ID Source 2020-03-08 18:36:00 2020-03-10 12:08:00 Discharged Inpatient (obs) 1 ASHLEY SY [facility] [id number] [facility] 2018-11-12 16:22:00 2018-11-12 16:22:00 Registered Emergency Room 1 KEVIN HERRERA [facility] [id number] [facility] Results Test Description Test Time Test Comments Results Result Comments Source Bedside Glucose 2020-03-10 12:09:00 Test Item Bedside Glucose (test code = 12691-7) 195 70-120 H Meter ID: [id number] Level 2020-03-10 05:48:00* Test Item Value Reference Range Interpretation Comments Sodium Level (test code = 2951-2) 148 136-145 H [facility]stPotassium [id number] 05:48:00* Test Item Value Reference Range Interpretation Comments Potassium Level (test code = 2823-3) 4.8 3.5-5.1 [facility]stChloride [id number] 05:48:00* Test Item Value Reference Range Interpretation Comments Chloride Level (test code = 2075-0) 111 98-107 H [facility]stCarbon Dioxide [id number] 05:48:00* Test Item Value Reference Range Interpretation Comments Carbon Dioxide Level (test code = 2028-9) 31 22-29 H [facility]stAnion [id number] 05:48:00* Test Item Value Reference Range Interpretation Comments Anion Gap (test code = 87459-8) 10.8 8-16 [facility]stBlood Urea [id number] 05:48:00* Test Item Value Reference Range Interpretation Comments Blood Urea Nitrogen (test code = 3094-0) 38 7-26 H [facility]stCreatinine2020-04-18 05:48:00* Test Item Value Reference Range Interpretation Comments Creatinine (test code = 2160-0) 1.65 0.57-1.11 H [facility]stBUN/Creatinine Mfagk7188-19-00 05:48:00* Test Item Value Reference Range Interpretation Comments BUN/Creatinine Ratio (test code = 3097-3) 23 6-25 [facility]stEstimat Glomerular Filtration Rate 2020-03-10 05:48:00* Test Item Value Reference Range Interpretation Comments Estimat Glomerular Filtration Rate (test code = 152588564) 31 >60 L Ranges were taken from the National Kidney Disease Education Program and the [place] on license of [place] medical cent[place] Kidney Foundation literature.Reference ranges:60 or greater: Ebonkv25-47 ( for 3 consecutive months): Chronic kidney disease 15 or less: Kidney failureBaylor Scott & White Medical Center – HillcrestGlucose Qiehz3794-35-42 05:48:00* Test Item Value Reference Range Interpretation Comments Glucose Level (test code = XCL2008) 77 74-118 [facility]stCalcium Tnweq4143-29-16 05:48:00* Test Item Value Reference Range Interpretation Comments Calcium Level (test code = 31492-9) 9.1 8.4-10.2 [facility]stWhite Blood Wnhsv0556-66-14 05:17:00* Test Item Value Reference Range Interpretation Comments White Blood Count (test code = 6690-2) 7.25 4.8-10.8 [facility] Hill[facility]stRed Blood [id number] 05:17:00* Test Item Value Reference Range Interpretation Comments Red Blood Count (test code = 789-8) 3.06 3.6-5.1 L [facility]stHemoglobin2020-04-17 05:17:00* Test Item Value Reference Range Interpretation Comments Hemoglobin (test code = 17610-5) 8.4 12.0-16.0 L [facility]stHematocrit2020-04-17 05:17:00* Test Item Value Reference Range Interpretation Comments Hematocrit (test code = 4544-3) 28.2 34.2-44.1 L [facility] Hill[facility]stMean Corpuscular Krmddz0578-73-35 05:17:00* Test Item Value Reference Range Interpretation Comments Mean Corpuscular Volume (test code = 787-2) 92.2 81-99 [facility]stMean Corpuscular Dbktwekqaf4194-81-86 05:17:00* Test Item Value Reference Range Interpretation Comments Mean Corpuscular Hemoglobin (test code = 785-6) 27.5 28-32 L [facility] Hill[facility]stMean Corpuscular Hemoglobin Concent 2020-03-09 05:17:00* Test Item Value Reference Range Interpretation Comments Mean Corpuscular Hemoglobin Concent (test code = 786-4) 29.8 31-35 L [facility] Hill[facility]stRed Cell Distribution Fzcla2413-45-96 05:17:00* Test Item Value Reference Range Interpretation Comments Red Cell Distribution Width (test code = 71132-6) 15.0 11.7 -14.4 H [facility] Hill[facility]stPlatelet Ensws2457-19-57 05:17:00* Test Item Value Reference Range Interpretation Comments Platelet Count (test code = 777-3) 226 140360 [facility]stNeutrophils (%) (Auto)2020-03-09 05:17:00 * Test Item Value Reference Range Interpretation Comments Neutrophils (%) (Auto) (test code = 13275-4) 72.5 38.7-80.0 [facility]stLymphocytes (%) (Auto)2020-03-09 05:17:00 * Test Item Value Reference Range Interpretation Comments Lymphocytes (%) (Auto) (test code = 736-9) 14.1 18.0-39.1 L [facility]stMonocytes (%) (Auto)2020-03-09 05:17:00* Test Item Value Reference Range Interpretation Comments Monocytes (%) (Auto) (test code = 5905-5) 7.2 4.4-11.3 [facility]stEosinophils (%) (Auto)2020-03-09 05:17:00 * Test Item Value Reference Range Interpretation Comments Eosinophils (%) (Auto) (test code = 713-8) 5.5 0.0-6.0 [facility]stBasophils (%) (Auto)2020-03-09 05:17:00* Test Item Value Reference Range Interpretation Comments Basophils (%) (Auto) (test code = 706-2) 0.4 0.0-1.0 [facility]stIM GRANULOCYTES %2020-03-09 05:17:00* Test Item Value Reference Range Interpretation Comments IM GRANULOCYTES % (test code = IM GRANULOCYTES %) 0.3 0.0- 1.0 [facility]stNeutrophils # (Auto)2020-03-09 05:17:00* Test Item Value Reference Range Interpretation Comments Neutrophils # (Auto) (test code = 751-8) 5.3 2.1-6.9 [facility]stLymphocytes # (Auto)2020-03-09 05:17:00* Test Item Value Reference Range Interpretation Comments Lymphocytes # (Auto) (test code = 88408-0) 1.0 1.0-3.2 [facility]stMonocytes # (Auto)2020-03-09 05:17:00* Test Item Value Reference Range Interpretation Comments Monocytes # (Auto) (test code = 742-7) 0.5 0.2-0.8 [facility]stEosinophils # (Auto)2020-03-09 05:17:00* Test Item Value Reference Range Interpretation Comments Eosinophils # (Auto) (test code = 711-2) 0.4 0.0-0.4 [facility]stBasophils # (Auto)2020-03-09 05:17:00* Test Item Value Reference Range Interpretation Comments Basophils # (Auto) (test code = 704-7) 0.0 0.0-0.1 [facility] Hill[facility]stAbsolute Immature Granulocyte (auto 2020-03-09 05:17:00* Test Item Value Reference Range Interpretation Comments Absolute Immature Granulocyte (auto (migule angel t code = Absolute Immature Granulocyte (auto) 0.02 0-0.1 [facility]stCreatine Kinase [id number] 18:37:00* Test Item Value Reference Range Interpretation Comments Creatine Kinase MB (test code = 15380-9) 1.40 0-5.0 [facility] Hill[facility]stTroponin [id number] 18:37:00* Test Item Value Reference Range Interpretation Comments Troponin I (test code = 96592-8) 0.011 0-0.300 [facility] Hill[facility]stTotal [id number] 18:33:00* Test Item Value Reference Range Interpretation Comments Total Bilirubin (test code = 1975-2) 0.5 0.2-1.2 [facility] HillcrestAspartate Amino Transf (AST/SGOT) 2020-03-08 18:33:00* Test Item Value Reference Range Interpretation Comments Aspartate Amino Transf (AST/SGOT) (test code = Aspartate Amino Transf (AST/SGOT)) 10 5-34 [facility] Hill[facility]stAlanine Aminotransferase (ALT/SGPT) 2020-03-08 18:33:00* Test Item Value Reference Range Interpretation Comments Alanine Aminotransferase (ALT/SGPT) (test code = 1742-6) 10 0-55 [facility] HillcrestTotal Nahggxc7553-18-59 18:33:00* Test Item Value Reference Range Interpretation Comments Total Protein (test code = 2885-2) 7.1 6.5-8.1 [facility] Hill[facility]stAlbumin2020-04-16 18:33:00* Test Item Value Reference Range Interpretation Comments Albumin (test code = 1751-7) 3.0 3.5-5.0 L [facility] Hill[facility]stGlobulin2020-04-16 18:33:00* Test Item Value Reference Range Interpretation Comments Globulin (test code = 77150-3) 4.1 2.3-3.5 H [facility] Hill[facility]stAlbumin/Globulin [id number] 18:33:00 * Test Item Value Reference Range Interpretation Comments Albumin/Globulin Ratio (test code = 1759-0) 0.7 0.8-2.0 L [facility] Hill[facility]stAlkaline Dmlyqdluhhr2005-90-03 18:33:00* Test Item Value Reference Range Interpretation Comments Alkaline Phosphatase (test code = 6768-6) 102 40-150 [facility]stCreatine Qftthf4445-60-62 18:33:00* Test Item Value Reference Range Interpretation Comments Creatine Kinase (test code = 2157-6) 81 29-168 [facility] Hill[facility]stB-Type Natriuretic Tsllfct7138-74-44 18:11:00* Test Item Value Reference Range Interpretation Comments B-Type Natriuretic Peptide (test code = 98437-3) 406.8 0-100 H [facility] HillcrestCHEST SINGLE (PORTABLE)2020-03-08 17:48:00 [facility] [address] [address] Patient Name: ADAN COLEY MR #: [id number] : 1950 Age/Sex: 69/F Req #: [id number] Adm Physician: Ordered by: JAVIER COBB FINANCIAL AIDS OFFICER Report #: [id number] Location: ER Room/Bed: Procedure: [id number] D X/CHEST SINGLE (PORTABLE) Exam Date: 03/08/20 Exam T leticia: 1730 REPORT STATUS: Signed EXAMINATION: CHEST SINGLE (PORTABLE) INDICATION: Swollen legs ERMD ORDER [id number] Y COMPARISON: 11/12/2018 FI NDINGS: TUBES and LINES: None. LUNGS: Low lung volumes and bibasilar at electasis. Pulmonary vascular congestion. PLEURA: Possible sm all left pleural effusion. No pneumothorax HEART AND MEDIASTINUM: Cardiome adan. Central pulmonary arteries are prominent. BONES AND SOFT TISSUE S: No acute osseous lesion. Soft tissues are unremarkable. UPPER ABDOME N: No free air under the diaphragm. IMPRESSION: Cardiomegaly with ce ntral vascular prominence. Please correlate with history of of pulmonary arter y hypertension. Low lung volumes and bibasilar atelectasis. Possible s mall left pleural effusion. Follow-up imaging is indicated to document hodan ring. Signed by: Dr. Ning Gongora M.D. on 03/08/2020 5:50 PM Dicta mulugeta By: NING GONGORA MD, MD 51 COPY TO: LUIGI COBB FINANCIAL AIDS OFFICER Bedside [id number] 00:30:00* Test Item Value Reference Range Interpretation Comments Bedside Glucose (test code = 78479-8) 267 70-120 H Meter ID: [id number] [facility] Tylerodium Level 2018-11-12 23:54:00* Test Item Value Reference Range Interpretation Comments Sodium Level (test code = 2951-2) 139 136-145 [facility] [id number] 23:54:00* Test Item Value Reference Range Interpretation Comments Potassium Level (test code = 2823-3) 4.1 3.5-5.1 [facility]stChloride [id number] 23:54:00* Test Item Value Reference Range Interpretation Comments Chloride Level (test code = 2075-0) 105 98-107 [facility] Hill[facility]stCarbon Dioxide Kckbe3313-61-07 23:54:00* Test Item Value Reference Range Interpretation Comments Carbon Dioxide Level (test code = 2028-9) 21 22-29 L [facility] HillcrestAnion Asu0948-54-15 23:54:00* Test Item Value Reference Range Interpretation Comments Anion Gap (test code = 05926-6) 17.1 8-16 H [facility] Hill[facility]stBlood Urea Jvsrkzio4366-65-98 23:54:00* Test Item Value Reference Range Interpretation Comments Blood Urea Nitrogen (test code = 3094-0) 37 7-26 H [facility]stCreatinine2018-12-21 23:54:00* Test Item Value Reference Range Interpretation Comments Creatinine (test code = 2160-0) 1.57 0.57-1.11 H [facility]stBUN/Creatinine Ihafe3330-16-68 23:54:00* Test Item Value Reference Range Interpretation Comments BUN/Creatinine Ratio (test code = 3097-3) 24 6-25 [facility] HillcrestEstimat Glomerular Filtration Rate 2018-11-12 23:54:00* Test Item Value Reference Range Interpretation Comments Estimat Glomerular Filtration Rate (test code = 319435142) 33 >60 L Ranges were taken from the National Kidney Disease Education Program and the [place] on license of [place] medical cent[place] Kidney Foundation literature.Reference ranges:60 or greater: Dyzvyq39-46 ( for 3 consecutive months): Chronic kidney disease 15 or less: Kidney failureBaylor Scott & White Medical Center – HillcrestGlucose Qvasu4798-72-30 23:54:00* Test Item Value Reference Range Interpretation Comments Glucose Level (test code = XNO1518) 65 74-118 L [facility] Hill[facility]stCalcium Ymute0914-49-54 23:54:00* Test Item Value Reference Range Interpretation Comments Calcium Level (test code = 66600-1) 9.2 8.4-10.2 [facility] Hill[facility]stUrine [id number] 23:42:00* Test Item Value Reference Range Interpretation Comments Urine WBC (test code = 5821-4) 21-50 0-5 H [facility] HillcrestUrine [id number] 23:42:00* Test Item Value Reference Range Interpretation Comments Urine RBC (test code = 86968-6) 0-5 0-5 [facility] Hill[facility]stUrine Hebgnpzc4366-89-80 23:42:00* Test Item Value Reference Range Interpretation Comments Urine Bacteria (test code = 10315-3) MANY NONE H [facility] HillcrestUrine Epithelial [id number] 23:42:00 * Test Item Value Reference Range Interpretation Comments Urine Epithelial Cells (test code = 40643-2) MODERATE NONE [facility] HillcrestUrine [id number] 23:25:00* Test Item Value Reference Range Interpretation Comments Urine Color (test code = 5778-6) YELLOW YELLOW [facility] HillcrestUrine [id number] 23:25:00* Test Item Value Reference Range Interpretation Comments Urine Clarity (test code = 93935-1) CLOUDY CLEAR H [facility] HillcrestUrine Specific [id number] 23:25:00 * Test Item Value Reference Range Interpretation Comments Urine Specific [place] (test code = 5811-5) 1.015 1.010-1.02 5 [facility] Hill[facility]stUrine [id number] 23:25:00* Test Item Value Reference Range Interpretation Comments Urine pH (test code = 17588-2) 5 5-7 [facility] HillcrestUrine Leukocyte Wyqoleby2298-82-86 23:25:00* Test Item Value Reference Range Interpretation Comments Urine Leukocyte Esterase (test code = 5799-2) 1+ NEGATIVE H [facility] HillcrestUrine Brfgfhc0616-24-20 23:25:00* Test Item Value Reference Range Interpretation Comments Urine Nitrite (test code = 63950-0) NEGATIVE NEGATIVE [facility] HillcrestUrine Cgagtqv9546-83-15 23:25:00* Test Item Value Reference Range Interpretation Comments Urine Protein (test code = 5804-0) NEGATIVE NEGATIVE [facility]st[facility]rine Glucose (UA)2018-11-12 23:25:00* Test Item Value Reference Range Interpretation Comments Urine Glucose (UA) (test code = 2349-9) 2+ NEGATIVE H [facility]stUrine Clbhooq2870-01-68 23:25:00* Test Item Value Reference Range Interpretation Comments Urine Ketones (test code = 88317-8) NEGATIVE NEGATIVE [facility]st[facility]rine Jhnfsrxsrzxz8950-15-06 23:25:00* Test Item Value Reference Range Interpretation Comments Urine Urobilinogen (test code = 48715-7) 0.2 0.2-1 [facility]Urine Wqgrslppp1600-14-70 23:25:00* Test Item Value Reference Range Interpretation Comments Urine Bilirubin (test code = 1978-6) NEGATIVE NEGATIVE [facility]stUrine Bznwf3410-13-21 23:25:00* Test Item Value Reference Range Interpretation Comments Urine Blood (test code = 67432-8) NEGATIVE NEGATIVE [facility]stCHEST SINGLE (PORTABLE)2018-11-12 19:28:00 [facility] [address] [place] [address] Patient Name: ADAN COLEY MR #: [id number] : 1950 Age/Sex: 68/F Req #: [id number] Adm Physician: Ordered by: ROSEMARY SAMUEL [employer] OFFICER Report #: [id number] Location: ER Room/Bed: Procedure: [id number] DX/ CHEST SINGLE (PORTABLE) Exam Date: 11/12/18 Exam Javon e: 2719 REPORT STATUS: Signed EX AMINATION: CHEST SINGLE (PORTABLE) COMPARISON: Chest x-ray 11/18/2017 INDICATION: Kidney problems DISCUSSION: Frontal view of the [facility] st obtained at 1901 hours. HEART AND MEDIASTINUM: Stable cardiomegaly. Bora tral pulmonary arteries are prominent. LINES: None. LUNGS: Low l ishmael volumes and bibasilar atelectasis. Pulmonary vascular markings are promine nt. There is mild eventration of the left diaphragm. PLEURA: No large effu sions. No pneumothorax. BONES AND SOFT TISSUES: No focal osseous lesion. T he soft tissues are normal. IMPRESSION: Cardiomegaly with central vas cular prominence. Please correlate with history of of pulmonary artery hyperte nsion. Low lung volumes and bibasilar atelectasis. Signed by: Dr. Federico Doyle MD on 11/12/2018 7:30 PM Dictated By: CYNDY DOYLE MD 29 Transcribed B y: SUSANNAH on 11/12/181929 COPY TO: ROSEMARY SAMUEL NP B-Type Natriuretic Mlglqzc8794-90-09 18:38:00* Test Item Value Reference Range Interpretation Comments B-Type Natriuretic Peptide (test code = 03742-2) 36.2 0-100 [facility]stCreatine Kinase IG9273-76-47 18:34:00* Test Item Value Reference Range Interpretation Comments Creatine Kinase MB (test code = 69268-5) 1.30 0-5.0 [facility]stTroponin Y7638-50-09 18:34:00* Test Item Value Reference Range Interpretation Comments Troponin I (test code = SAD6899) < 0.088 0-0.300 [facility]stTotal Piuqvdgba3159-15-56 18:23:00* Test Item Value Reference Range Interpretation Comments Total Bilirubin (test code = 1975-2) 0.6 0.2-1.2 [facility]stAspartate Amino Transf (AST/SGOT) 2018-11-12 18:23:00* Test Item Value Reference Range Interpretation Comments Aspartate Amino Transf (AST/SGOT) (test code = Aspartate Amino Transf (AST/SGOT)) 10 5-34 [facility]stAlanine Aminotransferase (ALT/SGPT) 2018-11-12 18:23:00* Test Item Value Reference Range Interpretation Comments Alanine Aminotransferase (ALT/SGPT) (test code = 1742-6) 10 0-55 [facility]stTotal Jbciocn1513-71-11 18:23:00* Test Item Value Reference Range Interpretation Comments Total Protein (test code = 2885-2) 8.3 6.5-8.1 H [facility]stAlbumin2018-12-21 18:23:00* Test Item Value Reference Range Interpretation Comments Albumin (test code = 1751-7) 3.3 3.5-5.0 L [facility]stGlobulin2018-12-21 18:23:00* Test Item Value Reference Range Interpretation Comments Globulin (test code = 62597-3) 5.0 2.3-3.5 H [facility]stAlbumin/Globulin Lorop9695-49-56 18:23:00 * Test Item Value Reference Range Interpretation Comments Albumin/Globulin Ratio (test code = 1759-0) 0.7 0.8-2.0 L [facility]stAlkaline Ftyazdjnmzc8700-64-57 18:23:00* Test Item Value Reference Range Interpretation Comments Alkaline Phosphatase (test code = 6768-6) 106 40-150 [facility]stCreatine Buwpzb0500-43-60 18:23:00* Test Item Value Reference Range Interpretation Comments Creatine Kinase (test code = 2157-6) 74 29-168 [facility]stProthrombin Dggj7967-72-84 18:16:00* Test Item Value Reference Range Interpretation Comments Prothrombin Time (test code = 5902-2) 12.6 11.9-14.5 [facility]stProthromb Time International Ratio 2018-11-12 18:16:00* Test Item Value Reference Range Interpretation Comments Prothromb Time International Ratio (test code = 6301-6) 0.87 Oral Anticoagulant Therapy INR Values:1. Low Intensity Therapy 1.5 - 2.02 . Moderate Intensity Therapy 2.0 - 3.03. High Intensity Therapy(1) 2.5 - 3. 54. High Intensity Therapy(2) 3.0 - 4.05. Panic Value INR > 5.0 [facility]stActivated Partial Thromboplast Time 2018-11-12 18:16:00* Test Item Value Reference Range Interpretation Comments Activated Partial Thromboplast Time (test code = 63331-5) 26.7 23.8-35.5 [facility]stWhite Blood Kmkeu5821-34-10 18:11:00* Test Item Value Reference Range Interpretation Comments White Blood Count (test code = 6690-2) 8.13 4.8-10.8 [facility]stRed Blood Esjsf9105-42-41 18:11:00* Test Item Value Reference Range Interpretation Comments Red Blood Count (test code = 789-8) 4.05 3.6-5.1 [facility]stHemoglobin2018-12-21 18:11:00* Test Item Value Reference Range Interpretation Comments Hemoglobin (test code = 01630-8) 12.1 12.0-16.0 [facility]stHematocrit2018-12-21 18:11:00* Test Item Value Reference Range Interpretation Comments Hematocrit (test code = 4544-3) 36.5 34.2-44.1 [facility] Hill[facility]stMean Corpuscular Gcfcby0146-77-93 18:11:00* Test Item Value Reference Range Interpretation Comments Mean Corpuscular Volume (test code = 787-2) 90.1 81-99 [facility]stMean Corpuscular Cdblprnunl5110-25-12 18:11:00* Test Item Value Reference Range Interpretation Comments Mean Corpuscular Hemoglobin (test code = 785-6) 29.9 28-32 [facility]stMean Corpuscular Hemoglobin Concent 2018-11-12 18:11:00* Test Item Value Reference Range Interpretation Comments Mean Corpuscular Hemoglobin Concent (test code = 786-4) 33.2 31-35 [facility] Hill[facility]stRed Cell Distribution Bdtni8881-62-47 18:11:00* Test Item Value Reference Range Interpretation Comments Red Cell Distribution Width (test code = 45073-3) 12.2 11.7 -14.4 [facility] Hill[facility]stPlatelet Oqhso5604-65-95 18:11:00* Test Item Value Reference Range Interpretation Comments Platelet Count (test code = 777-3) 275 140-360 [facility]stNeutrophils (%) (Auto)2018-11-12 18:11:00 * Test Item Value Reference Range Interpretation Comments Neutrophils (%) (Auto) (test code = 42238-3) 74.3 38.7-80.0 [facility]stLymphocytes (%) (Auto)2018-11-12 18:11:00 * Test Item Value Reference Range Interpretation Comments Lymphocytes (%) (Auto) (test code = 736-9) 18.0 18.0-39.1 [facility]stMonocytes (%) (Auto)2018-11-12 18:11:00* Test Item Value Reference Range Interpretation Comments Monocytes (%) (Auto) (test code = 5905-5) 5.7 4.4-11.3 [facility]stEosinophils (%) (Auto)2018-11-12 18:11:00 * Test Item Value Reference Range Interpretation Comments Eosinophils (%) (Auto) (test code = 713-8) 1.1 0.0-6.0 [facility]stBasophils (%) (Auto)2018-11-12 18:11:00* Test Item Value Reference Range Interpretation Comments Basophils (%) (Auto) (test code = 706-2) 0.7 0.0-1.0 [facility]stIM GRANULOCYTES %2018-11-12 18:11:00* Test Item Value Reference Range Interpretation Comments IM GRANULOCYTES % (test code = IM GRANULOCYTES %) 0.2 0.0- 1.0 [facility]stNeutrophils # (Auto)2018-11-12 18:11:00* Test Item Value Reference Range Interpretation Comments Neutrophils # (Auto) (test code = 751-8) 6.0 2.1-6.9 [facility]stLymphocytes # (Auto)2018-11-12 18:11:00* Test Item Value Reference Range Interpretation Comments Lymphocytes # (Auto) (test code = 34233-3) 1.5 1.0-3.2 [facility]stMonocytes # (Auto)2018-11-12 18:11:00* Test Item Value Reference Range Interpretation Comments Monocytes # (Auto) (test code = 742-7) 0.5 0.2-0.8 [facility]stEosinophils # (Auto)2018-11-12 18:11:00* Test Item Value Reference Range Interpretation Comments Eosinophils # (Auto) (test code = 711-2) 0.1 0.0-0.4 [facility]stBasophils # (Auto)2018-11-12 18:11:00* Test Item Value Reference Range Interpretation Comments Basophils # (Auto) (test code = 704-7) 0.1 0.0-0.1 [facility]stAbsolute Immature Granulocyte (auto 2018-11-12 18:11:00* Test Item Value Reference Range Interpretation Comments Absolute Immature Granulocyte (auto (miguel angel t code = Absolute Immature Granulocyte (auto) 0.02 0-0.1 [facility]stCHEST SINGLE (PORTABLE) [facility] [address] [place] [address] Patient Name: ADAN COLEY MR #: [id number] : 1950 Age/Sex: 67/F Req #: [id number] [facility] Physician: YORDY GIRON MD Ordered by: PEREZ ORTIZ MD Report #: [id number] Location: [facility] Room/Bed: [place] [address] Procedure: [id number] DX/CH EST SINGLE (PORTABLE) Exam Date: 11/18/17 Exam Time: 1430 REPORT STATUS: Signed PROCEDURE: CHEST SINGLE (PORTABLE) TECH NIQUE: Portable AP chest INDICATION: Chest congestion COMPARISON: [facility], DX, CHEST 2 VIEWS, 11/16/2017, 14:36. FINDINGS: Bilateral interstitial and lower lobe predominant alveolar opacities, mildly improved relative to November 16. Trace pleural effusions decreased in volume compared to November 16. Enlarged cardiac silhouette and central vasculature with mild peribronchial cuffing. Grossly intact skeleton. CONCLUSI ON: Mild improvement in pulmonary edema relative to November 16. Persistent interstitial edema and trace effusions. Dictated by: Bárbara Pena M.D. on 11/18/2017 at 14:57 Electronically approved by: Bárbara Pena M.D. on 11/18/2017 at 14:57 Dictated By: BÁRBARA MORRISSEY MD 56 Transcr ibed By: IRENE on 11/18/177 COPY TO: PEREZ ORTIZ MD ECHO COMPLETE (ECHOCARDIOGRAM) [place] [address] Patient Name : ADAN COLEY MR #: [id number] : 1950 Age/Sex: 67/F Adm Physician : YORDY GIRON MD Admit Date : 11/15/17 Location : MED/SURG Room/Bed : [facility] REPORT: Cardiology Report DATE OF STUDY: November 17, 2017 ECHOCARDIOGRAM M-MODE: Dilat ed left atrium. Left ventricular hypertrophy. Normal contractility. Normal mitral and aortic valves. No pericardial effusion. SECTOR SCAN: Mildly e nlarged left atrium. Left ventricular hypertrophy. Normal contractility. E jection fraction is approximately 60%. Aortic valve is mildly sclerotic. Mi tral and tricuspid valves are normal. There is no pericardial effusion. CARDIAC DOPPLER STUDY WITH COLOR: Trace mitral and tricuspid regurgitation. Pulmonary artery systolic pressure estimated at 26 mmHg. CONCLUSION 1. Mild left ventricular hypertrophy with ejection fraction of approximately 60 %. 2. Trace mitral regurgitation with mildly enlarged left atrium. 3. Aort ic sclerosis without stenosis. 4. Trace tricuspid regurgitation without signi ficant pulmonary hypertension. DT: 1 01/18/2017 10:12 Job#: [id number] RI cc: YORDY GIRON MD Signatur e Date Dictated By: ROCIO ROMAN MD Transcribed By: SMEDS on <Electronically signed by ROCIO ROMAN MD><<Signature on File>>12/11/17 1029 COPY TO: CHEST 2 VIEWS [place] [address] Patient Name: ADAN COLEY MR #: [id number] : 1950 Age/Sex: 67/F Req #: [id number] Adm Physician: YORDY GIRON MD Ordered by: HARRY VAZQUEZ MD Report #: [id number] Location: [facility] Room/Bed: [place] [address] Procedure: [id number] DX/CHES T 2 VIEWS Exam Date: 11/16/17 Exam Time: 1445 REPORT STATUS: Signed EXAMINATION: PA and lateral views of the chest. COMPARISON: Chest PA and lateral 04/16/2017 CLINICAL HISTORY: Shortness of breath DISCUSSION: Lines/tubes: None. Lungs: The lungs are well-inflated. Patchy bibasilar opacities. Mild perihilar interstitial opaci ties. Pleura: Bilateral small pleural effusions. Heart and mediastinu m: Stable mild enlargement of the cardiac silhouette. Central pulmonary veno us congestion. Bones and soft tissues: No acute bony abnormalities. Degen erative changes in the thoracic spine IMPRESSION: 1. Central pulmon tegan venous congestion, mild perihilar interstitial edema and bilateral small p leural effusions, likely reflecting volume overload. 2. Patchy bibasilar op acities likely reflect bibasilar atelectasis. Signed by: Dr. Mamta Veloz M.D. on 11/16/2017 2:59 PM Dictated By: BARTOLOME Rossi 58 Transcribed By: SUSANNAH on 11/16/171458 COPY TO: HARRY VAZQUEZ MD CT CHEST WO [place] [address] Patient Name: ADAN COLEY MR #: [id number] : 1950 Age/Sex: 67/F Req #: [id number] Adm Physician: YORDY GIRON MD Ordered by: YORDY GIRON MD Report #: [id number] Location: [facility] Room/Bed: [place] [address] Procedure: [id number] CT/CT CH EST WO Exam Date: 11/15/17 Exam Time: 1145 REP ORT STATUS: Signed EXAM: CT Chest WITHOUT contrast INDICATION: Short o f breath COMPARISON: Same day radiograph TECHNIQUE: The Chest was s canned utilizing a multidetector helical scanner without the use of IV contras t. Coronal and sagittal reformations were obtained. Reformatted axial MIP imag es were obtained and reviewed. IV CONTRAST: None COMPLICATIONS: None RADIATION DOSE: Total DLP: 534 mGy*cm Estimated effective dose: (DLP x 0.015 x size factor) mSv CTDIvol has been reviewed. It is below the limits set by the Radiation Protocol Committee (RPC). FINDINGS: Lines and Tubes: None. Lower Neck: The visual ized thyroid gland is grossly unremarkable with no suspicious or significant n odule identified. Heart and Great Vessels: The aorta and main pulmonary art bianka measure 30 and 27 mm. respectively. The cardiothoracic radio measures 14/ 25. Small pericardial effusion, likely physiologic. Moderate coronary artery vascular calcifications. Lymph Nodes: No definite enlarged mediastinal l ymph nodes. The hilar regions are sub-optimally evaluated given lack of IV con trast. Lungs: Moderate layering bilateral pleural effusions are present. A reas of consolidation in the lung bases incompletely evaluated without IV cont rast. Moderate septal thickening and scattered groundglass opacities present. Trachea and central bronchi are unremarkable. Upper abdomen: Moderate va scular calcifications. Bones and Soft Tissues: Moderate degenerative change s spine. Remote posterior medical deformity of the manubrium. Remote left rib fractures. IMPRESSION: 1. Cardiomegaly, small pericardial effusion, mod erate pleural effusions, septal thickening, and scattered groundglass opacitie s consistent with moderate volume overload. 2. Areas of consolidation in the lung bases incompletely evaluated without IV contrast, statistically repr esenting atelectasis. Superimposed pneumonia not excluded. 3. Moderate c oronary artery vascular calcifications. Signed by: Dr. Kimberly Fitzgerald MD on 11/15/2017 12:24 PM Dictated By: KIMBERLY FITZGERALD MD 1224 Transcribed By: SUSANNAH on 11/15/17 1224 COPY TO: YORDY GIRON MD CHEST SINGLE (PORTABLE) [place] [address] Patient Name: ADAN COLEY MR #: [id number] : 1950 Age/Sex: 67/F Req #: [id number] Adm Physician: Ordered by: KEVIN HERRERA MD Report #: [id number] Location: ER Room/Bed: Procedure: [id number] DX/CHEST SINGLE (PORTABLE) Ex am Date: Exam Time: REPORT STATUS: Signed EXAM: CHEST SINGLE (PORTABLE), AP 1 view DATE: 11/15/2017 12:24 AM Time stamp on exam: 0049 hours INDICATION: Shortness of breath for 2 days COMPARISON: AP view of the chest November 12, 2017 FINDINGS: LINES/TUBES: None L UNGS: Vascular congestion/pulmonary edema and bibasilar atelectasis PLEURA : Indeterminate for layering pleural effusions. HEART AND MEDIASTINUM: Stab le appearance BONES AND SOFT TISSUES: No acute findings. IMPRESSION: Stable findings of fluid overload Signed by: Dr. Sola Shaver M.D. on 11/15/2017 1:00 AM Dictated By: SOLA SHAVER MD Transcribed By: SUSANNAH on 99 COPY TO: KEVIN HERRERA MD CHEST SINGLE (PORTABLE) [place] [address] Patient Name: ADAN COLEY MR #: [id number] : 1950 Age/Sex: 67/F Req #: [id number] Adm Physician: Ordered by: JASON CAMPOS MD Report #: [id number] Location: ER Room/Bed: Procedure: [id number] DX/CHEST SINGLE (PORTABLE) Avis hinson Date: 11/12/17 Exam Time: 1809 REPORT STATUS: Signed PROCEDURE: A single AP view of the chest. COMPARISON: [facility], CT, CT CHEST WO, 09/21/2017, 15:01. INDICATIONS: SH ORTNESS OF BREATH FINDINGS: Lines/tubes: Lungs: Lungs are w ell-inflated. Bilateral interstitial opacities extending from the gogo. Obscu ration of the left hemidiaphragm with patchy opacities in bilateral lower jami gs, left greater than right. Pleura: Blunting of the right lateral costoph renic sulcus Heart and mediastinum: Cardiomegaly with central pulmonary ve nous congestion Bones: No acute bony abnormality. IMPRESSION: 1. cardiomegaly with central pulmonary venous congestion and bilateral i nterstitial edema and pleural effusions, likely reflecting decompensated CHF. 2. Patchy opacities in bilateral lower lungs likely represent compressive atelectasis secondary to bilateral pleural effusions, versus alveolar edema. Bartolome Veloz M.D. Dictated by: Bartolome Veloz M.D. on 11/12/2017 at 18:43 Electronically approved by: Bartolome Veloz M.D. on 11/12/2017 at 18:43 Dictated By: BARTOLOME VELOZ MD Electr onically Signed By: BARTOLOME VELOZ MD on 11/12/171842 Transcribed By: IRENE on 11/12/171842 COPY TO: JASON CAMPOS MD CT [facility] [place] [address] Patient Name: ADAN COLEY MR #: [id number] : 1950 Age/Sex: 66/F Req #: [id number] Adm Physician: Ordered by: JASON CAMPOS MD Report #: [id number] Location: ER Room/Bed: Procedure: [id number] CT/CT MAXIO FAC/GARY hinson Date: 11/07/17 Exam Time: 1125 REPORT STATUS: Signed History:Left-sided facial swelling Comparison studies: None Te chnique: Axial images were obtained through the maxillofacial region. Pinedo l and sagittal images reconstructed from the axial data. Intravenous contrast: None Findings: Soft tissues: Minimal asymmetric subcutaneous soft tissue edema in the left perimandibular soft tissues. No soft tissue abscess. Bones: The patient is edentulous. No fractures or bone abnormalities. Orbits: Globes: Intact Extra or intraconal abnormalities: None. Par anasal sinuses: Clear IMPRESSION: Minimal asymmetric subcutaneous soft tissue edema in the left perimandibular soft tissues which may represent mild cellulitis in the appropriate clinical setting. No soft tissue abscess. The preliminary report was reviewed and a final report issued by Dr. Steven neuroradiologist on 11/07/2017 at 4:11 PM. Signed by: Dr. Latrice Steven M.D. on 11/07/2017 4:11 PM Dictated By: LATRICE STEVEN MD 10 Transcribed By: SUSANNAH on 11/07/171610 COPY TO: JASON CAMPOS MD MRI FOOT RIGHT [place] [address] Patient Name: ADAN COLEY MR #: [id number] : 1950 Age/Sex: 66/F Req #: [id number] Adm Physician: YORDY GIRON MD Ordered by: TOMAS MURDOCK DPNissa Report #: [id number] Location: MED/SURG2 Room/Bed: 200 Procedure: [id number] MRI/MRI FOOT RIGHT WO Exam Date: 10/26/17 Exam Javon e: 1600 REPORT STATUS: Signed TECHNIQUE: Magnetic resonance imaging o f the RIGHT foot was performed WITHOUT injected contrast. HISTORY: Right -sided pain COMPARISON: None available. DISCUSSION: Soft tissue inf iltration of the hallux. Bone marrow edema and T1 replacement involving the phalanges of the hallux. No abscess. Remainder of the bone marrow signal is normal. Soft tissue edema and swelling of the foot. Atrophy of the foot musculature. 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 Signed by: Dr. James Wolff M.D. on 10/27/2017 8:25 AM Dictated By: JAMES WOLFF MD 4 Transcribed By: SUSANNAH on 10/27/17824 COPY TO: TOMAS MURDOCK DPNissa FOOT RIGHT COMPLETE [place] [address] Patient Name: ADAN COLEY MR #: [id number] : 1950 Age/Sex: 66/F Req #: [id number] Adm Physician: Ordered by: JAQUAN PADILLA MD Report #: [id number] Location: ER Room/Bed: Procedure: [id number] DX/FOOT RIGHT COMPLETE Exam Date: 10/25/17 Exam Time: 0800 REPORT STATUS: Signed EXAM: FOOT RIGHT COMPLETE DATE: 10/25/2017 7:08 AM INDICATION : Diabetic foot COMPARISON: None FINDINGS: Bones are demineralized. Advanced vascular calcifications are present. The Lisfranc joint is normally a ligned. Mild scattered degenerative changes present. There is questionable ashley ency of the fourth and fifth metatarsal heads. Second toe poorly evaluated due to persistent flexion. Moderate plantar and small posterior calcaneal entheso phytes present. IMPRESSION: Questionable lucency fourth and fifth metata rsal heads with osteomyelitis not excluded. Correlation recommended. Contrast- enhanced MRI could be obtained for further evaluation. Other chronic martinez ges as above. Signed by: Dr. Kimberly Fitzgerald MD on 10/25/2017 8:31 AM D ictated By: KIMBERLY FITZGERALD MD 0 COPY TO: Mikael PADILLA MD Stress Test - Treadmill ONLY [place] [address] Patient Name : ADAN COLEY MR #: [id number] : 1950 Age/Sex: 66/F Adm Physician : YORDY GIRON MD Admit Date : 09/18/17 Location : [facility] Room/Bed : [facility] REPORT: Cardiology Report DATE OF STUDY: September 22, 2017 LEXISCAN MYOVIEW The patient had resting perfusion images after an injection of 10.8 millicuries of techniti um-99 Myoview. Due to inability to exercise, she was given Lexiscan 0.4 mg a nd shortly afterwards 33 millicuries of technitium-99 Myoview. Perfusion yamileth ges were taken by rotational tomography. Compared to resting and Lexisca n stress images show no evidence of any perfusion defect. Additionally, gate d wall motion images were obtained, and calculated ejection fraction normal a t 61%. FINAL IMPRESSION 1. Normal Lexiscan Myoview perfusion. 2. No rmal left ventricular function. Calculated ejection fraction 61%. Job#: [id number] RI cc: YORDY GIRON MD Signature Date Dictated By: MATT BROCK MD Transcribed By: EDS on 09/23/17 <Electronically signed by MATT BROCK MD><<Signature on File>>09/28/17 1107 COPY TO: RENAL RETROPERITONEAL COMP [place] [address] Patient Name: ADAN COLEY MR #: [id number] : 1950 Age/Sex: 66/F Req #: [id number] Adm Physician: YORDY GIRON MD Ordered by: BLAZE GARDNER, ENRIKE GARDNER Report #: [id number] Location: [facility] Room/Bed: [facility] Procedure: [id number] US/U S RENAL RETROPERITONEAL COMP Exam Date: 09/22/17 Exa m Time: 1254 REPORT STATUS: Signed EXAM: Renal Ultrasound INDICATION: CHF COMPARISON: CT dated 04/20/2017 TECHNIQUE: Transverse and longitudinal images of the kidneys and bladder were obtained. FINDINGS: Limited study due to body habitus. Right Kidney: Size: 1 1.8 cm Echogenicity: Normal Parenchymal thickness: Normal Collecting system: No hydronephrosis Stones: None Cyst/Mass: No ne Left Kidney: Size: 11.9 cm Echogenicity: Normal Parenchymal thickness: Normal Collecting system: No hydronephrosis Stones: None Cyst/Mass: 2 x 1.1 x 1.8 cm midpole cyst. Bladder: Decompressed by a Mercado catheter in place. IMPRESSION: Unremarkable renal ultrasound exam. 2 cm simple left renal cyst. Signed by: Dr. Carina syed MD on 09/22/2017 2:42 PM Dictated By: CARINA SANTOS MD Electronica lly Signed By: CARINA SANTOS MD on 09/22/171441 Transcribed By: SUSANNAH on 1441 COPY TO: ENRIKE THAKUR CT CHEST WO [place] [address] Patient Name: ADAN COLEY MR #: [id number] : 1950 Age/Sex: 66/F Req #: [id number] Adm Physician: YORDY GIRON MD Ordered by: YORDY GIRON MD Report #: [id number] Location: MED/SURG2 Room/Bed: [facility] Procedure: [id number] CT/CT CH EST WO Exam Date: 09/21/17 Exam Time: 1501 REP ORT STATUS: Signed PROCEDURE: CT CHEST WITHOUT CONTRAST CT scan of the ches t WITHOUT intravenous contrast, using standard protocol. TECHNIQUE: T he chest was scanned utilizing a multidetector helical scanner from the apex to the level of the adrenal glands. No IV contrast was administered as per jomar sparks request. Coronal and sagittal multiplanar reformations were obtaine d. COMPARISON: Portable chest 09/20/2017. INDICATIONS: SHORTNESS O F BREATH FINDINGS: Lines/tubes: None. Lungs and Airways: Bila teral nodular groundglass opacities are present in the lungs bilaterally, mos t prominent in the right upper lobe, series 3 image 35. Pleura: Small bilateral pleural effusions. No pneumothorax. Heart and mediastinum: The thyroid gland is normal. No significant mediastinal, hilar or axillary lympha denopathy is seen. The heart and pericardium are within normal limits. Athero sclerotic calcifications of the thoracic aorta and coronary arteries. S oft tissues: Normal. Abdomen: Limited views of the upper abdomen show no a bnormality within the visualized liver, spleen, pancreas, or kidneys. The adr enal glands are normal. Bones: The visualized bony thorax is within nor mal limits. IMPRESSION: Bilateral multifocal airspace opacities ma y represent a developing pneumonia. Small bilateral pleural effusions. Dictated by: Yordy Murphy M.D. on 09/21/2017 at 17:22 Electro nically approved by: Yordy Murphy M.D. on 09/21/2017 at 17:22 Dictated By: YORDY MURPHY MD 21 COPY TO: YORDY GIRON MD ECHO COMPLETE (ECHOCARDIOGRAM) [place] [address] Patient Name : ADAN COLEY MR #: [id number] : 1950 Age/Sex: 66/F Adm Physician : YORDY GIRON MD Admit Date : 09/18/17 Location : [facility] Room/Bed : [facility] REPORT: Cardiology Report DATE OF STUDY: September 20, 2017 ATTENDING PHYSICIAN: Dr. Michael chacon ECHOCARDIOGRAM M-MODE: Dilated left atrium. Left ventricular hypertrophy. Right ventricular hypertrophy. Normal contractility including the inferior wall. Sclerosis of the mitral valve annulus. Normal tricuspid valves. No pericardial effusion. SECTOR SCAN: Suboptimal study with po or image quality. Dilated left atrium. Left and right ventricular hypertrop hy. Preserved left ventricular contractility. Ejection fraction 65%. Melba l annulus sclerotic. Tricuspid appears to be normal. There is no pericardia l effusion. CARDIAC DOPPLER STUDY WITH COLOR: Trace tricuspid regurgita tion. Pulmonary artery systolic pressure estimated at 26 mmHg. CONCLUSI ONS 1. Left ventricular hypertrophy with ejection fraction of approximately 65% with normal left ventricular wall motion, including the inferior wall. 2. Right ventricular hypertrophy. 3. Sclerosis of the mitral valve annulus with dilated left atrium. 4. Trace tricuspid regurgitation. Job#: [id number] cc: MICHAEL DELANEY MD Signature Date Dictated By: ROCIO ROMAN MD Transcribed By: EDS on 09/21/17 <Electronically signed by ROCIO ROMAN MD>< <Signature on File>>09/29/17 1006 COPY TO: CHEST SINGLE (PORTABLE) [place] [address] Patient Name: ADAN COLEY MR #: [id number] : 1950 Age/Sex: 66/F Req #: [id number] Adm Physician: MICHAEL DELANEY MD Ordered by: ROCIO ROMAN MD Report #: [id number] Locati on: MED/SURG2 Room/Bed: [facility] Procedure: [id number] DX /CHEST SINGLE (PORTABLE) Exam Date: 09/20/17 Exam Ti me: 0630 REPORT STATUS: Signed Examination: Single AP view of the chest . COMPARISON: September 19, 2017 INDICATION: Cellulitis, congestive hear t failure DISCUSSION: Lines/tubes: None. Lungs: Mildly imp roved interstitial and alveolar opacities, greater in the right lung. Ple ura: There is no pleural effusion or pneumothorax. Heart and mediastinum: The heart and the mediastinum are unremarkable. Bones and soft tissues: No acute bony abnormalities. IMPRESSION: 1. Mildly improved int erstitial and alveolar opacities, greater in the right lung likely reflecting edema. Signed by: Dr. James Wolff M.D. on 09/20/2017 6:58 AM Dic tated By: JAMES WOLFF MD 7 Transcribed By: SUSANNAH on 09/20/17657 COPY TO: Nissa ROMAN MD VENOUS DUPLEX LWR B/L [place] [address] Patient Name : ADAN COLEY MR #: [id number] : 1950 Age/Sex: 66/F Adm Physician : YORDY GIRON MD Admit Date : 09/18/17 Location : MED/SURG2 Room/Bed : [facility] REPORT: Cardiology Report DATE OF STUDY: September 19, 2017 DOPPLER SCAN OF LOWER EXTREMITIES VE INS The lower extremity veins were interrogated using the duplex scanning method. The veins were compressible. There was no definite deep venous thrombosis. CONCLUSION 1. No definite deep venous thrombosis involving the lower extremity veins bilaterally. 2. Suboptimal study. DD: 14:50 Job#: [id number] cc: MICHAEL TROY MD Signature Date Dictated By: ROCIO ROMAN MD T ranscribed By: JOSE on 09/20/17 <Electronically signed by ROCIO ROMAN MD><< Signature on File>>09/21/17 0941 COPY TO: CHEST SINGLE (PORTABLE) [place] [address] Patient Name: ADAN COLEY MR #: [id number] : 1950 Age/Sex: 66/F Req #: [id number] Adm Physician: MICHAEL DELANEY MD Ordered by: ROCIO ROMAN MD Report #: [id number] Locati on: MED/SURG2 Room/Bed: [facility] Procedure: [id number] DX /CHEST SINGLE (PORTABLE) Exam Date: 09/19/17 Exam Ti me: 1315 REPORT STATUS: Signed EXAM: Single AP view of the chest (Chau ble). COMPARISON: Chest radiograph from 09/18/2017 INDICATION: Shortne ss of breath FINDINGS: Single portable AP view of the chest. The visualized bones and soft tissues, cardiac silhouette pleura appear unchanged. IMPRESSION: 1. Lines/tubes: None 2. Interval decreased bilateral pulmon tegan edema. Signed by: Dr. Onelia Gutiérrez M.D. on 09/19/2017 1:38 PM Dictated By: ONELIA GUTIÉRREZ MD 37 Transcribed By: SUSANNAH on 09/19/17 133 COPY TO: ROCIO ROMAN MD CHEST SINGLE (PORTABLE) [place] [address] Patient Name: ADAN COLEY MR #: [id number] : 1950 Age/Sex: 66/F Req #: [id number] Adm Physician: Ordered by: JASON CAMPOS MD Report #: [id number] Location: ER Room/Bed: Procedure: [id number] DX/CHEST SINGLE (PORTABLE) Exa m Date: 09/18/17 Exam Time: 1215 REPORT STATUS: [...] pneumothorax. Heart and mediastinum: There is stable cardiomeg chico. Bones: Degenerative changes of the thoracic spine are stable. There n o focal osseous lesions. IMPRESSION: 1. New airspace opacities in the right lung are suggestive of pulmonary edema or pneumonia in the appro priate clinical setting. Poor visualization of the left diaphragm could be du e to atelectasis and small pleural effusion. 2. Stable cardiomegaly. Dictated by: Cyndy Doyle M.D. on 09/18/2017 at 12:54 Elec tronically approved by: Cyndy Doyle M.D. on 09/18/2017 at 12:54 Dictated By: CYNDY DOYLE MD 125 Transcribed By: IRENE on 09/18/17 1259 COPY TO : JASON CAMPOS MD CT FOOT RIGHT [place] [address] Patient Name: ADAN COELY MR #: [id number] : 1950 Age/Sex: 66/F Req #: [id number] Adm Physician: YORDY GIRON MD Ordered by: YORDY GIRON MD Report #: [id number] Location: MED/SURG2 [place] [facility] [place] [facility] [place] Procedure: [id number] CT/CT FO OT RIGHT WO Exam Date: 09/11/17 Exam Time: 1545 REPORT STATUS: Signed Exam: Right footCT without contrast. History: C ellulitis. Chronic kidney disease. Diabetes. Swelling. Comparison:Radiograp hs September 10, 2017 Technique: Utilizing a 64-slice multidetector CT, axial imaging was performed through the right foot without IV contrast. Multiplanar reformation was performed. Findings: There is diffuse soft tissue swelli ng and skin ulceration at the plantar aspect of the great toe on the tibial si de. This is best seen on axial series 501 image 16 and series 3 image 87. No a djacent well-formed fluid collection is seen. No underlying cortical destructi on is seen to suggest osteomyelitis at this time. There is no acute fract ure, dislocation or evidence of avascular necrosis. Scattered degenerative luigi nges are seen. Scattered vascular calcifications are seen. There is di ffuse muscle atrophy. There is diffuse soft tissue swelling about the ankle /foot. Impression: Findings consistent with skin ulceration and celluliti s at the plantar aspect of the great toe. No underlying cortical destruction i s seen to suggest osteomyelitis at this time. Signed by: Dr. Ning deleon M.D. on 09/11/2017 4:14 PM Dictated By: NING GONGORA MD, MD Electron ically Signed By: NING GONGORA MD, MD on 09/11/171613 Transcribed By: SUSANNAH on 09/11/171613 COPY TO: YORDY GIRON MD FOOT RIGHT COMPLETE [facility] [place] [address] Patient Name: ADAN COLEY MR #: [id number] : 1950 Age/Sex: 66/F Req #: [id number] Adm Physician: YORDY GIRON MD Ordered by: KEVIN HERRERA MD Report #: [id number] Location: MED/SURG2 Room[place] [facility] [place] [facility] [place] Procedure: [id number] DX/FO OT RIGHT COMPLETE Exam Date: 09/10/17 Exam Time: 235 5 REPORT STATUS: Signed FOOT RIGHT COMPLETE HISTORY: Diabetic miguel d with cellulitis. Evaluate for osteomyelitis. COMPARISON: None F INDINGS: Bones: No displaced fracture. There is diffuse demineralization. Multifocal area of solid periosteal reaction most likely due to venous stasis. Osseous alignment is within normal limits. Joints: Scattered degenerative changes of the mid and forefoot Soft tissues: Diffuse soft tissue edema with questionable defect at the plantar aspect of the first toe. Diffuse ath erosclerotic disease of the visualized anterior tibial and peroneal arteries. IMPRESSION: No evidence of osteomyelitis. If clinical concern persist s, MRI with and without contrast of the right food can be obtained. Wilma d by: Dr. Holger Manley M.D. on 09/11/2017 1:20 AM Dictated By: HOLGER GUTIÉRREZ MD 012 0 Transcribed By: SUSANNAH on 09/11/17 0120 COPY TO: KEVIN HERRERA MD [facility] [place] [address] Patient Name: ADAN COLEY MR #: [id number] : 1950 Age/Sex: 66/F Req #: [id number] Adm Physician: YORDY GIRON MD Ordered by: KEVIN HERRERA MD Report #: [id number] Location: MED/SURG2 Room/[place]: [facility] [place] [facility] [place] Procedure: [id number] DX/CH EST SINGLE (PORTABLE) Exam Date: 09/10/17 Exam Time: 2355 REPORT STATUS: Signed EXAMINATION: CHEST SINGLE (PORTABLE) INDICATION: Lower extremity cellulitis. COMPARISON: 04/18/2017 FINDINGS: TUBES and LINES: None. LUNGS: Lungs are not well inflated. There are bibasilar atelectasis. There is mild prominence of the central pulmonary vasculature, consistent with pulmonary venous congestion. PLEURA: No pleural effusion or pneumothorax. HEART AND MEDIASTINUM: C ardiac size is mildly enlarged. There are atherosclerotic calcifications withi n the aorta. BONES AND SOFT TISSUES: No acute osseous lesion. Soft tissue s are unremarkable. UPPER ABDOMEN: No free air under the diaphragm. IMPRESSION: No acute thoracic abnormality. Mild enlargement of the heart with central vascular congestion. Signed by: Dr. Holger Manley M.D. on 1:21 AM Dictated By: HOLGER MISHRA MD Electronically Sign ed By: HOLGER MISHRA MD on 09/11/17120 Transcribed By: SUSANNAH on 08/24 COPY TO: KEVIN HERRERA MD
== END 2020-08-07 23:05 | disposition home or self-care (01) ==
LOC: ER 22:43
DX: R21 Rash and other nonspecific skin eruption (principal); T78.40XA Allergy, unspecified, initial encounter; I10 Essential (primary) hypertension; E11.9 Type 2 diabetes mellitus without complications; E78.5 Hyperlipidemia, unspecified; K21.9 Gastro-esophageal reflux disease without esophagitis
CPT/HCPCS: 99282

== ENCOUNTER 2020-08-18 13:58 | Emergency (ER) | payer MEDICARE ==
[~2020-08-18] VITALS: Ht 160 cm; Wt 133.4 kg
--- NOTE | 2020-08-18 14:49 | Emergency Department Note ---
History of Present Illnes History of Present Illness Chief Complaint: General Medicine Complaints History of Present Illness This is a 69 year old female PATIENT IN FROM HOME WITH COMPLAINTS OF RASH; STATES THAT SHE WAS SEEN HERE ABOUT 10 DAYS AGO FOR THE SAME THING, AND TOLD TO FOLLOW-UP WITH DERMATOLOGY; PATIENT STATES THAT SHE IS JUST HERE FOR ANOTHER METHYLPREDNISOLONE DOSE PACK. PATIENT ALERT AND ORIENTED, RESP EVEN AND NONLABORED, APPEARS IN NO DISTRESS. Historian: Patient, Family Member Arrival Mode: Car Business Analytics Manager Required: No Radiation: Reports non-radiation Severity: mild Timing of current episode: intermittent Progression: waxing and waning Chronicity: recurrent Relieving factors: none Exacerbating factors: none Past Medical/Family History Physician Review I have reviewed the patient's past medical and family history. Any updates have been documented here. Past Medical History Recent Fever: No Clinical Suspicion of Infectio: No New/Unexplained Change in Ment: No Past Medical History: Hypertension, Diabetes, GERD, Hyperlipedemia, Chronic Kidney Disease Other Medical History: HIGH CHOLESTEROL CKD Other Surgery: Great toe Right foot amputated. Lt foot toe amputation Lt femur fx w/ana placement Social History Smoking Cessation: Never Smoker Counseling Performed: No Alcohol Use: None Any Illegal Drug Use: No TB Exposure/Symptoms: No Physically hurt or threatened: No Family History Family history of heart diseas: No Other Last Tetanus: UNK Any Pre-Existing Lines (PICC,: No Review of Systems Review of Systems Constitutional: Reports no symptoms EENTM: Reports no symptoms Cardiovascular: Reports no symptoms Respiratory: Reports no symptoms Gastrointestinal: Reports no symptoms Genitourinary: Reports no symptoms Musculoskeletal: Reports no symptoms Integumentary: Reports as per HPI Neurological: Reports no symptoms Psychological: Reports no symptoms Endocrine: Reports no symptoms Hematological/Lymphatic: Reports no symptoms Physical Exam Related Data Allergies: Coded Allergies: No Known Allergies (Unverified , 11/12/18) Triage Vital Signs Vital Signs Date Time Temp Pulse Resp B/P (MAP) Pulse Ox O2 Delivery O2 Flow Rate FiO2 08/18/20 14:05 97.9 95 18 118/45 97 Room Air Vital signs reviewed: Yes Physical Exam CONSTITUTIONAL Constitutional: Present well-developed, Present well-nourished, Present obese HENT HENT: Present normocephalic, Present atraumatic, Present oropharynx clear/moist, Present nose normal HENT L/R: Present left ext ear normal, Present right ext ear normal EYES Eyes: Reports PERRL, Reports conjunctivae normal NECK Neck: Present ROM normal PULMONARY Pulmonary: Present effort normal, Present breath sounds normal CARDIOVASCULAR Cardiovascular: Present regular rhythm, Present heart sounds normal, Present capillary refill normal, Present normal rate GASTROINTESTINAL Abdominal: Present soft, Present nontender, Present bowel sounds normal GENITOURINARY Genitourinary: Present exam deferred SKIN Skin: Present warm, Present dry, Present other (MILD DIFFUSE RASH WITH DRY SCALE) MUSCULOSKELETAL Musculoskeletal: Present ROM normal NEUROLOGICAL Neurological: Present alert, Present oriented x 3, Present no gross motor or sensory deficits PSYCHOLOGICAL Psychological: Present mood/affect normal, Present judgement normal Assessment & Plan Medical Decision Making [facility] HOME Reassessment Reassessment MEDROL DOSE OLGA, F/U PCP THURSDAY Assessment & Plan Final Impression: (1) Dermatitis Depart Disposition: HOME, SELF-CARE Last Vital Signs Date Time Temp Pulse Resp B/P (MAP) Pulse Ox O2 Delivery O2 Flow Rate FiO2 08/18/20 14:05 97.9 95 18 118/45 97 Room Air Home Meds Reported Medications Aspirin (ASPIR 81) 81 Mg Tablet.dr, 81 MG PO DAILY 03/08/20 Glipizide (GLIPIZIDE ER) 5 Mg Tab.er.24, 5 MG PO DAILY 03/08/20 Nifedipine (NIFEDIPINE ER) 30 Mg Tab.er.24, 60 MG PO DAILY 03/08/20 Levocetirizine Dihydrochloride (LEVOCETIRIZINE DIHYDROCHLORIDE) 5 Mg Tablet, 5 MG PO DAILY 03/08/20 Insulin Detemir (LEVEMIR) 100 Unit/1 Ml Vial, 30 UNITS SC HS 11/21/17 Insulin Detemir (LEVEMIR) 100 Unit/1 Ml Vial, 50 UNITS SC ACB 11/21/17 Furosemide (LASIX) 40 Mg Tablet, 40 MG PO TWICE DAILY 09/28/17 Omeprazole (OMEPRAZOLE) 40 Mg Capsule.dr, 40 MG PO DAILY 09/11/17 Atorvastatin Calcium (Lipitor) 80 Mg Tablet, 40 MG PO DAILY 07/20/12 KEVIN HERRERA MD Aug 18, 2020 14:49
--- OUTSIDE RECORDS SUMMARY | 2020-08-19 16:43 | XMS REPORT | Continuity of Care Document ---
Author Author [facility] t Organization [facility] Address [address] [place] [address] Phone Unavailable Care Team Providers Care Transaction Advisory Services Manager Name Role Phone MD KALEIGH REGALADO MD PCP ASHLEY YS Attphys Unavailable Arianna HERRERA Attphys Unavailable GIRON, YORDY Attphys Unavailable Enid CAMPOS Attphys Unavailable GIRON, YORDY Admphys Unavailable Payers Payer Name Policy Type Policy Number Effective Date Expiration Date Serjio brice [facility] [id number] 2020 00:00:00 [facility] [id number] 2017 00:00:00 [facility] [id number] 2015 00:00:00 [facility] Medicare Advantage [id number] 2015 00:00:00 [facility] Problems Condition Name Condition Details Condition Category Status Onset Date Resolution Date Last Treatment Date Treating Clinician Comments Source Congestive heart failure CHF (congestive heart failure) Problem Active [facility] Chronic kidney disease CKD (chronic kidney disease) Problem Active [facility] Cellulitis Cellulitis Problem Active [facility] Diabetes mellitus Diabetes Problem Active [facility] Diabetic foot ulcer Diabetic foot ulcer Problem Active [facility] Hypomagnesemia Hypomagnesemia Problem Active [facility] Renal insufficiency Renal insufficiency Problem Active [facility] Respiratory failure Respiratory failure Problem Active [facility] Secondary anemia Symptomatic anemia Problem Active [facility] Urinary tract infection UTI (urinary tract infection) Problem Active [facility] Retention of urine Urinary retention Problem Active [facility] Allergic reaction Problem Active [facility] Rash Problem Active [facility] Dermatitis Problem Active [facility] Allergies, Adverse Reactions, Alerts This patient has no known allergies or adverse reactions. Social History Social Habit Start Date Stop Date Quantity Comments Source Sex Assigned At 1950 00:00:00 1950 00:[birth year]:00 Female [facility] Medications Ordered Medication Name Filled Medication Name Start Date Stop Da te Current Medication? Ordering Clinician Indication Dosage Frequency Signature (SIG) Comments Components Source Aspirin (Aspir 81) 81 Mg TABLET. Aspirin (Aspir 81) 81 Mg TABLET. Yes 81 Daily [facility] Atorvastatin Calcium (Lipitor) 80 Mg TABLET Atorvastat in Calcium (Lipitor) 80 Mg TABLET Yes 40 Daily [facility] Furosemide (Lasix) 40 Mg TABLET Furosemide (Lasix) 40 Mg TABLET Yes 40 Twice Daily [facility] Glipizide (Glipizide Er) 5 Mg TAB.ER.24 Glipizide (Glipizide Er) 5 Mg TAB[address]ER.[address] [facility] Insulin Detemir (Levemir) 100 Unit/1 Ml VIAL Insulin D etemir (Levemir) 100 Unit/1 Ml VIAL Yes 50 Before Breakfast [facility] Insulin Detemir (Levemir) 100 Unit/1 Ml VIAL Insulin D etemir (Levemir) 100 Unit/1 Ml VIAL Yes 30 Bedtime [facility] Levocetirizine Dihydrochloride Levocetirizine Dihydrochloride Yes 5 Daily [facility] Nifedipine (Nifedipine Er) 30 Mg TAB.ER.24 Nifedipine (Nifedipine Er) 30 Mg TAB.ER.[address] [facility] Omeprazole Omeprazole Yes 40 Daily [facility] Tramadol Hcl (Ultram) 50 Mg TABLET Tramadol Hcl (Ultram) 50 Mg T ABLET 2020-03-08 00:00:00 No 50 Every 8 Hours as nee ded for Pain [facility] Bacid Bacid 2017-11-22 00:00:00 No 2 Daily [facility] Cephalexin Cephalexin 2017-11-22 00:00:00 No 500 Fou r Times Daily [facility] Ciprofloxacin Hcl (Cipro) 500 Mg TABLET Ciprofloxacin Hcl (C ipro) 500 Mg TABLET 2017-11-22 00:00:00 No 500 Twice A Day [facility] Doxycycline Hyclate Doxycycline Hyclate 2017-11-22 00:00:00 No 100 Twice A Day [facility] Losartan Potassium Losartan Potassium 2017-11-22 00:00:00 No 100 Daily [facility] Metformin Hcl Metformin Hcl 2017-11-22 00:00:00 No 1000 Twice Daily With Meals [facility] Nifedipine (Procardia Xl) 30 Mg TAB.ER.24 Nifedipine ( Procardia Xl) 30 Mg TAB.ER.24 2017-11-22 00:00:00 No 30 Daily [facility] Fluconazole Fluconazole 2017-11-15 00:00:00 No 150 D aily [facility] Insulin Detemir (Levemir) 100 Unit/1 Ml VIAL Insulin D etemir (Levemir) 100 Unit/1 Ml VIAL 2017-11-15 00:00:00 No 15 Before Br eakfast [facility] Insulin Detemir (Levemir) 100 Unit/1 Ml VIAL Insulin D etemir (Levemir) 100 Unit/1 Ml VIAL 2017-11-15 00:00:00 No 30 Bedtime [facility] Potassium Chloride Potassium Chloride 2017-11-15 00:00:00 No 10 Daily [facility] Carvedilol (Coreg) 6.25 Mg TAB Carvedilol (Coreg) 6.25 Mg TAB 2017-09-28 00:00:00 No Twice A Day [facility] Ciprofloxacin Hcl (Cipro) 500 Mg TABLET Ciprofloxacin Hcl (C ipro) 500 Mg TABLET 2017-09-28 00:00:00 No 500 Daily [facility] Furosemide Furosemide 2017-09-28 00:00:00 No 40 Tatiana ly [facility] Metformin Hcl Metformin Hcl 2017-09-28 00:00:00 No 500 Twice A Day [facility] Nifedipine Nifedipine 2017-09-28 00:00:00 No 30 Thr ee Times A Day [facility] Metformin Hcl Metformin Hcl 2017-09-17 00:00:00 No 1000 Twice A Day [facility] Levemir Levemir 2017-09-10 00:00:00 No 40 Bedtime [facility] Omeprazole Omeprazole 2017-09-10 00:00:00 No 40 Tatiana ly [facility] Psyllium Seed (With Sugar) (Metamucil Packet) 1 Each P ACKET Psyllium Seed (With Sugar) (Metamucil Packet) 1 Each PACKET 2017-09-10 00:00:00 No 6 Daily [facility] Tramadol Hcl (Ultram) 50 Mg TABLET Tramadol Hcl (Ultram) 50 Mg T ABLET 2017-09-10 00:00:00 No 50 Every 6 Hours as nee ded for Pain [facility] Aspirin (Aspir 81) 81 Mg TABLET. Aspirin (Aspir 81) 81 Mg KAITLIN JOHNSON 2017-04-24 00:00:00 No 1 [facility] Meloxicam Meloxicam 2017-04-24 00:00:00 No 7.5 Daily [facility] Metformin Hcl Metformin Hcl 2017-04-24 00:00:00 No 1000 Twice A Day [facility] Lisinopril Lisinopril 2017-04-18 00:00:00 No 20 Tatiana ly [facility] Sennosides/Docusate Sodium (Stool Softener Tablet) 1 E ach TABLET Sennosides/Docusate Sodium (Stool Softener Tablet) 1 Each TABLET 2017-04-18 00:00:00 No 1 Daily [facility] Vital Signs Vital Name Observation Time Observation Value Comments Source Weight 2020-08-18 14:05:00 294 [lb_av] [facility] BMI (Body Mass Index) 2020-08-18 14:05:00 52.1 kg/m2 [facility] Weight 2020-08-07 22:54:00 294 [lb_av] [facility] BMI (Body Mass Index) 2020-08-07 22:54:00 52.1 kg/m2 [facility] Body Temperature 2020-03-10 11:42:00 96.1 [degF] [facility] Procedures This patient has no known procedures. Plan of Care Planned Activity Planned Date Details Comments Source Instructions Allergic Reaction [facility] Instructions Rash - Nonspecific [facility] Encounters Start Date/Time End Date/Time Encounter Type Admission Type Attendi [facility] Facility Care Department Encounter ID Source 2020-08-18 14:33:00 2020-08-18 14:33:00 Departed Emergency Room [facility] [id number] [facility] 2020-08-07 22:43:00 2020-08-07 23:05:00 Departed Emergency Room [facility] [id number] [facility] 2020-03-08 18:36:00 2020-03-10 12:08:00 Discharged Inpatient (obs) 1 ASHLEY SY [facility] [id number] [facility] 2018-11-12 16:22:00 2018-11-12 16:22:00 Registered Emergency Room 1 KEVIN HERRERA [facility] [id number] [facility] Results Test Description Test Time Test Comments Results Result Comments Source Bedside Glucose 2020-03-10 12:09:00 Test Item Bedside Glucose (test code = 32072-9) 195 70-120 H Meter ID: [id number] Medical [facility] LancasterCapillary blood glucose measurement by glucometer (mass/volume)2020-03-10 11:10:00* Test Item Value Reference Range Interpretation Comments Bedside Glucose (test code = 43037-6) 195 70-120 Meter ID: [id number] Medical Center LancasterCapillary blood glucose measurement by glucometer (mass/volume)2020-03-10 11:10:00* Test Item Value Reference Range Interpretation Comments Bedside Glucose (test code = 57165-0) 195 70-120 Meter ID: [id number] Medical Centerodium Level 2020-03-10 05:48:00* Test Item Value Reference Range Interpretation Comments Sodium Level (test code = 2951-2) 148 136-145 H [facility] LancasterPotassium [id number] 05:48:00* Test Item Value Reference Range Interpretation Comments Potassium Level (test code = 2823-3) 4.8 3.5-5.1 [facility] LancasterChloride [id number] 05:48:00* Test Item Value Reference Range Interpretation Comments Chloride Level (test code = 2075-0) 111 98-107 H [facility] LancasterCarbon Dioxide [id number] 05:48:00* Test Item Value Reference Range Interpretation Comments Carbon Dioxide Level (test code = 2028-9) 31 22-29 H [facility] LancasterAnion [id number] 05:48:00* Test Item Value Reference Range Interpretation Comments Anion Gap (test code = 69141-0) 10.8 8-16 [facility] LancasterBlood Urea Nhnopqjk2798-03-19 05:48:00* Test Item Value Reference Range Interpretation Comments Blood Urea Nitrogen (test code = 3094-0) 38 7-26 H [facility] LancasterCreatinine2020-04-18 05:48:00* Test Item Value Reference Range Interpretation Comments Creatinine (test code = 2160-0) 1.65 0.57-1.11 H [facility] LancasterBUN/Creatinine Gjsqj1391-80-88 05:48:00* Test Item Value Reference Range Interpretation Comments BUN/Creatinine Ratio (test code = 3097-3) 23 6-25 [facility] LancasterEstimat Glomerular Filtration Rate 2020-03-10 05:48:00* Test Item Value Reference Range Interpretation Comments Estimat Glomerular Filtration Rate (test code = 178360076) 31 >60 L Ranges were taken from the National Kidney Disease Education Program and the [facility] literature.Reference ranges:60 or greater: Ejfdhk38-82 ( for 3 consecutive months): Chronic kidney disease 15 or less: Kidney failureCHI [facility] HospitalGlucose Lljsc8991-60-33 05:48:00* Test Item Value Reference Range Interpretation Comments Glucose Level (test code = PYI2357) 77 74-118 [facility] LancasterCalcium Ctpki7982-70-84 05:48:00* Test Item Value Reference Range Interpretation Comments Calcium Level (test code = 60575-4) 9.1 8.4-10.2 [facility] Centererum or plasma sodium measurement (moles/volume)2020-03-10 05:03:00* Test Item Value Reference Range Interpretation Comments Sodium Level (test code = 2951-2) 148 136-145 [facility]ererum or plasma potassium measurement (moles/volume)2020-03-10 05:03:00* Test Item Value Reference Range Interpretation Comments Potassium Level (test code = 2823-3) 4.8 3.5-5.1 [facility]ererum or plasma chloride measurement (moles/volume)2020-03-10 05:03:00* Test Item Value Reference Range Interpretation Comments Chloride Level (test code = 2075-0) 111 98-107 [facility] Centererum or plasma carbon dioxide, total measurement (moles/volume)2020-03-10 05:03:00* Test Item Value Reference Range Interpretation Comments Carbon Dioxide Level (test code = 2028-9) 31 22-29 [facility] Centererum or plasma anion [id number] 05:03:00* Test Item Value Reference Range Interpretation Comments Anion Gap (test code = 10156-3) 10.8 8-16 [facility]ererum or plasma urea nitrogen measurement (mass/volume)2020-03-10 05:03:00* Test Item Value Reference Range Interpretation Comments Blood Urea Nitrogen (test code = 3094-0) 38 7-26 [facility] Centererum or plasma creatinine measurement (mass/volume)2020-03-10 05:03:00* Test Item Value Reference Range Interpretation Comments Creatinine (test code = 2160-0) 1.65 0.57-1.11 [facility] Centererum or plasma urea nitrogen/creatinine mass [id number] 05:03:00* Test Item Value Reference Range Interpretation Comments BUN/Creatinine Ratio (test code = 3097-3) 23 6-25 [facility] LancasterEstimated glomerular filtration rate (GFR) jrhlvripduspu1146-19-66 05:03:00* Test Item Value Reference Range Interpretation Comments Estimat Glomerular Filtration Rate (test code = 507100086) 31 >60 Ranges were taken from the National Kidney Disease Education Program and the [facility] literature.Reference ranges:60 or greater: Fkikkc14-83 ( for 3 consecutive months): Chronic kidney disease 15 or less: Kidney failureCrescent Medical Center LancasterGlucose hvdjvwewadk2077-31-83 05:03:00* Test Item Value Reference Range Interpretation Comments Glucose Level (test code = QZV3284) 77 74-118 [facility]ererum or plasma calcium measurement (mass/volume)2020-03-10 05:03:00* Test Item Value Reference Range Interpretation Comments Calcium Level (test code = 10447-3) 9.1 8.4-10.2 [facility]ererum or plasma sodium measurement (moles/volume)2020-03-10 05:03:00* Test Item Value Reference Range Interpretation Comments Sodium Level (test code = 2951-2) 148 136-145 [facility]ererum or plasma potassium measurement (moles/volume)2020-03-10 05:03:00* Test Item Value Reference Range Interpretation Comments Potassium Level (test code = 2823-3) 4.8 3.5-5.1 [facility]ererum or plasma chloride measurement (moles/volume)2020-03-10 05:03:00* Test Item Value Reference Range Interpretation Comments Chloride Level (test code = 2075-0) 111 98-107 [facility] Centererum or plasma carbon dioxide, total measurement (moles/volume)2020-03-10 05:03:00* Test Item Value Reference Range Interpretation Comments Carbon Dioxide Level (test code = 2028-9) 31 22-29 [facility]ererum or plasma anion [id number] 05:03:00* Test Item Value Reference Range Interpretation Comments Anion Gap (test code = 05217-0) 10.8 8-16 [facility]ererum or plasma urea nitrogen measurement (mass/volume)2020-03-10 05:03:00* Test Item Value Reference Range Interpretation Comments Blood Urea Nitrogen (test code = 3094-0) 38 7-26 [facility]ererum or plasma creatinine measurement (mass/volume)2020-03-10 05:03:00* Test Item Value Reference Range Interpretation Comments Creatinine (test code = 2160-0) 1.65 0.57-1.11 [facility]ererum or plasma urea nitrogen/creatinine mass cdwrf1537-06-30 05:03:00* Test Item Value Reference Range Interpretation Comments BUN/Creatinine Ratio (test code = 3097-3) 23 6-25 [facility] LancasterEstimated glomerular filtration rate (GFR) dzmdqlpctasrf9035-33-83 05:03:00* Test Item Value Reference Range Interpretation Comments Estimat Glomerular Filtration Rate (test code = 678261478) 31 >60 Ranges were taken from the National Kidney Disease Education Program and the [facility] literature.Reference ranges:60 or greater: Eizekw38-70 ( for 3 consecutive months): Chronic kidney disease 15 or less: Kidney failureCrescent Medical Center LancasterGlucose iokzvafddvs3227-40-38 05:03:00* Test Item Value Reference Range Interpretation Comments Glucose Level (test code = DNG3267) 77 74-118 [facility] Centererum or plasma calcium measurement (mass/volume)2020-03-10 05:03:00* Test Item Value Reference Range Interpretation Comments Calcium Level (test code = 10632-2) 9.1 8.4-10.2 [facility] LancasterWhite Blood Fenjc6843-61-90 05:17:00* Test Item Value Reference Range Interpretation Comments White Blood Count (test code = 6690-2) 7.25 4.8-10.8 [facility] LancasterRed Blood Dibdg0445-32-77 05:17:00* Test Item Value Reference Range Interpretation Comments Red Blood Count (test code = 789-8) 3.06 3.6-5.1 L [facility] LancasterHemoglobin2020-04-17 05:17:00* Test Item Value Reference Range Interpretation Comments Hemoglobin (test code = 40162-6) 8.4 12.0-16.0 L [facility] LancasterHematocrit2020-04-17 05:17:00* Test Item Value Reference Range Interpretation Comments Hematocrit (test code = 4544-3) 28.2 34.2-44.1 L [facility] LancasterMean Corpuscular Chkpxm6955-31-79 05:17:00* Test Item Value Reference Range Interpretation Comments Mean Corpuscular Volume (test code = 787-2) 92.2 81-99 [facility] LancasterMean Corpuscular Tvualoaczo2337-30-34 05:17:00* Test Item Value Reference Range Interpretation Comments Mean Corpuscular Hemoglobin (test code = 785-6) 27.5 28-32 L [facility] LancasterMean Corpuscular Hemoglobin Concent 2020-03-09 05:17:00* Test Item Value Reference Range Interpretation Comments Mean Corpuscular Hemoglobin Concent (test code = 786-4) 29.8 31-35 L [facility] LancasterRed Cell Distribution Chqvs4237-68-18 05:17:00* Test Item Value Reference Range Interpretation Comments Red Cell Distribution Width (test code = 20249-2) 15.0 11.7 -14.4 H [facility] LancasterPlatelet Fjvdq4807-57-20 05:17:00* Test Item Value Reference Range Interpretation Comments Platelet Count (test code = 777-3) 226 140-360 [facility] LancasterNeutrophils (%) (Auto)2020-03-09 05:17:00 * Test Item Value Reference Range Interpretation Comments Neutrophils (%) (Auto) (test code = 08652-5) 72.5 38.7-80.0 [facility] LancasterLymphocytes (%) (Auto)2020-03-09 05:17:00 * Test Item Value Reference Range Interpretation Comments Lymphocytes (%) (Auto) (test code = 736-9) 14.1 18.0-39.1 L [facility] LancasterMonocytes (%) (Auto)2020-03-09 05:17:00* Test Item Value Reference Range Interpretation Comments Monocytes (%) (Auto) (test code = 5905-5) 7.2 4.4-11.3 [facility] LancasterEosinophils (%) (Auto)2020-03-09 05:17:00 * Test Item Value Reference Range Interpretation Comments Eosinophils (%) (Auto) (test code = 713-8) 5.5 0.0-6.0 [facility] LancasterBasophils (%) (Auto)2020-03-09 05:17:00* Test Item Value Reference Range Interpretation Comments Basophils (%) (Auto) (test code = 706-2) 0.4 0.0-1.0 [facility] LancasterIM GRANULOCYTES %2020-03-09 05:17:00* Test Item Value Reference Range Interpretation Comments IM GRANULOCYTES % (test code = IM GRANULOCYTES %) 0.3 0.0- 1.0 [facility] LancasterNeutrophils # (Auto)2020-03-09 05:17:00* Test Item Value Reference Range Interpretation Comments Neutrophils # (Auto) (test code = 751-8) 5.3 2.1-6.9 [facility] LancasterLymphocytes # (Auto)2020-03-09 05:17:00* Test Item Value Reference Range Interpretation Comments Lymphocytes # (Auto) (test code = 30777-9) 1.0 1.0-3.2 [facility] LancasterMonocytes # (Auto)2020-03-09 05:17:00* Test Item Value Reference Range Interpretation Comments Monocytes # (Auto) (test code = 742-7) 0.5 0.2-0.8 [facility] LancasterEosinophils # (Auto)2020-03-09 05:17:00* Test Item Value Reference Range Interpretation Comments Eosinophils # (Auto) (test code = 711-2) 0.4 0.0-0.4 [facility] LancasterBasophils # (Auto)2020-03-09 05:17:00* Test Item Value Reference Range Interpretation Comments Basophils # (Auto) (test code = 704-7) 0.0 0.0-0.1 [facility] LancasterAbsolute Immature Granulocyte (auto 2020-03-09 05:17:00* Test Item Value Reference Range Interpretation Comments Absolute Immature Granulocyte (auto (miguel angel t code = Absolute Immature Granulocyte (auto) 0.02 0-0.1 [facility] LancasterBlood leukocytes automated count (number/volume)2020-03-09 04:35:00* Test Item Value Reference Range Interpretation Comments White Blood Count (test code = 6690-2) 7.25 4.8-10.8 [facility] LancasterBlood erythrocytes automated count (number/volume)2020-03-09 04:35:00* Test Item Value Reference Range Interpretation Comments Red Blood Count (test code = 789-8) 3.06 3.6-5.1 [facility] LancasterBlood hemoglobin measurement (moles/volume)2020-03-09 04:35:00* Test Item Value Reference Range Interpretation Comments Hemoglobin (test code = 28109-0) 8.4 12.0-16.0 [facility] LancasterAutomated blood hematocrit (volume fraction)2020-03-09 04:35:00* Test Item Value Reference Range Interpretation Comments Hematocrit (test code = 4544-3) 28.2 34.2-44.1 [facility] LancasterAutomated erythrocyte mean corpuscular clnoxy8605-39-23 04:35:00* Test Item Value Reference Range Interpretation Comments Mean Corpuscular Volume (test code = 787-2) 92.2 81-99 [facility] LancasterAutomated erythrocyte mean corpuscular hemoglobin (mass per erythrocyte)2020-03-09 04:35:00* Test Item Value Reference Range Interpretation Comments Mean Corpuscular Hemoglobin (test code = 785-6) 27.5 28-32 [facility] LancasterAutomated erythrocyte mean corpuscular hemoglobin concentration measurement (mass/volume)2020-03-09 04:35:00* Test Item Value Reference Range Interpretation Comments Mean Corpuscular Hemoglobin Concent (test code = 786-4) 29.8 31-35 [facility] LancasterRDW TcdLf-Ddp0657-92-17 04:35:00* Test Item Value Reference Range Interpretation Comments Red Cell Distribution Width (test code = 09836-6) 15.0 11.7 -14.4 [facility] LancasterAutomated blood platelet count (count/volume)2020-03-09 04:35:00* Test Item Value Reference Range Interpretation Comments Platelet Count (test code = 777-3) 226 140-360 [facility] LancasterAutnovant health/nhrmced blood segmented neutrophil count as percentage of total gofnessmok6262-86-05 04:35:00* Test Item Value Reference Range Interpretation Comments Neutrophils (%) (Auto) (test code = 67918-5) 72.5 38.7-80.0 [facility] LancasterAutnovant health/nhrmced blood lymphocyte count as percentage ot total yfrgegvixo1746-19-17 04:35:00* Test Item Value Reference Range Interpretation Comments Lymphocytes (%) (Auto) (test code = 736-9) 14.1 18.0-39.1 [facility] LancasterAutomated blood monocyte count as percentage of total uxungzfgti8197-29-46 04:35:00* Test Item Value Reference Range Interpretation Comments Monocytes (%) (Auto) (test code = 5905-5) 7.2 4.4-11.3 [facility] LancasterAutomated blood eosinophil count as percentage of total blnosmotlz8811-03-91 04:35:00* Test Item Value Reference Range Interpretation Comments Eosinophils (%) (Auto) (test code = 713-8) 5.5 0.0-6.0 [facility] LancasterAutomated blood basophil count as percentage of total hkivkamgba8716-57-78 04:35:00* Test Item Value Reference Range Interpretation Comments Basophils (%) (Auto) (test code = 706-2) 0.4 0.0-1.0 [facility] LancasterFluoroscopic procedure less than one hour qqylhtev3117-84-14 04:35:00* Test Item Value Reference Range Interpretation Comments IM GRANULOCYTES % (test code = IM GRANULOCYTES %) 0.3 0.0- 1.0 [facility] LancasterAutomated blood neutrophil count 2020-03-09 04:35:00* Test Item Value Reference Range Interpretation Comments Neutrophils # (Auto) (test code = 751-8) 5.3 2.1-6.9 [facility] LancasterBlood lymphocytes count (number/volume) 2020-03-09 04:35:00* Test Item Value Reference Range Interpretation Comments Lymphocytes # (Auto) (test code = 85390-3) 1.0 1.0-3.2 [facility] LancasterBlmayo clinic health system monocytes automated count (number/volume)2020-03-09 04:35:00* Test Item Value Reference Range Interpretation Comments Monocytes # (Auto) (test code = 742-7) 0.5 0.2-0.8 [facility] LancasterAutomated blood eosinophil count 2020-03-09 04:35:00* Test Item Value Reference Range Interpretation Comments Eosinophils # (Auto) (test code = 711-2) 0.4 0.0-0.4 [facility] LancasterAutomated blood basophil count (count/volume)2020-03-09 04:35:00* Test Item Value Reference Range Interpretation Comments Basophils # (Auto) (test code = 704-7) 0.0 0.0-0.1 [facility] LancasterFluoroscopic procedure less than one hour bxbsnoqw8068-20-33 04:35:00* Test Item Value Reference Range Interpretation Comments Absolute Immature Granulocyte (auto (miguel angel t code = Absolute Immature Granulocyte (auto) 0.02 0-0.1 [facility] LancasterBlood leukocytes automated count (number/volume)2020-03-09 04:35:00* Test Item Value Reference Range Interpretation Comments White Blood Count (test code = 6690-2) 7.25 4.8-10.8 [facility] LancasterBlmay[facility] erythrocytes automated count (number/volume)2020-03-09 04:35:00* Test Item Value Reference Range Interpretation Comments Red Blood Count (test code = 789-8) 3.06 3.6-5.1 [facility] LancasterBlood hemoglobin measurement (moles/volume)2020-03-09 04:35:00* Test Item Value Reference Range Interpretation Comments Hemoglobin (test code = 89320-0) 8.4 12.0-16.0 [facility] LancasterAutomated blood hematocrit (volume fraction)2020-03-09 04:35:00* Test Item Value Reference Range Interpretation Comments Hematocrit (test code = 4544-3) 28.2 34.2-44.1 [facility] LancasterAutomated erythrocyte mean corpuscular fjlclw2857-57-56 04:35:00* Test Item Value Reference Range Interpretation Comments Mean Corpuscular Volume (test code = 787-2) 92.2 81-99 [facility] LancasterAutomated erythrocyte mean corpuscular hemoglobin (mass per erythrocyte)2020-03-09 04:35:00* Test Item Value Reference Range Interpretation Comments Mean Corpuscular Hemoglobin (test code = 785-6) 27.5 28-32 [facility] LancasterAutomated erythrocyte mean corpuscular hemoglobin concentration measurement (mass/volume)2020-03-09 04:35:00* Test Item Value Reference Range Interpretation Comments Mean Corpuscular Hemoglobin Concent (test code = 786-4) 29.8 31-35 [facility] LancasterRDW NolVn-Imt7939-73-17 04:35:00* Test Item Value Reference Range Interpretation Comments Red Cell Distribution Width (test code = 57037-3) 15.0 11.7 -14.4 [facility] LancasterAutomated blood platelet count (count/volume)2020-03-09 04:35:00* Test Item Value Reference Range Interpretation Comments Platelet Count (test code = 777-3) 226 140-360 [facility] LancasterAutomated blood segmented neutrophil count as percentage of total zesbmsslrp5274-05-79 04:35:00* Test Item Value Reference Range Interpretation Comments Neutrophils (%) (Auto) (test code = 66472-5) 72.5 38.7-80.0 [facility] LancasterAutomated blood lymphocyte count as percentage ot total qajgwzifof8542-99-44 04:35:00* Test Item Value Reference Range Interpretation Comments Lymphocytes (%) (Auto) (test code = 736-9) 14.1 18.0-39.1 [facility] LancasterAutomated blood monocyte count as percentage of total bocusylhkn6019-44-23 04:35:00* Test Item Value Reference Range Interpretation Comments Monocytes (%) (Auto) (test code = 5905-5) 7.2 4.4-11.3 [facility] LancasterAutnovant health/nhrmced blood eosinophil count as percentage of total uyqzhjfonj7997-67-24 04:35:00* Test Item Value Reference Range Interpretation Comments Eosinophils (%) (Auto) (test code = 713-8) 5.5 0.0-6.0 [facility] LancasterAutomated blood basophil count as percentage of total rdysywtntv5321-33-96 04:35:00* Test Item Value Reference Range Interpretation Comments Basophils (%) (Auto) (test code = 706-2) 0.4 0.0-1.0 [facility] LancasterFluoroscopic procedure less than one hour gmqgmarq5496-89-31 04:35:00* Test Item Value Reference Range Interpretation Comments IM GRANULOCYTES % (test code = IM GRANULOCYTES %) 0.3 0.0- 1.0 [facility] LancasterAutomated blood neutrophil count 2020-03-09 04:35:00* Test Item Value Reference Range Interpretation Comments Neutrophils # (Auto) (test code = 751-8) 5.3 2.1-6.9 [facility] LancasterBlood lymphocytes count (number/volume) 2020-03-09 04:35:00* Test Item Value Reference Range Interpretation Comments Lymphocytes # (Auto) (test code = 47851-9) 1.0 1.0-3.2 [facility] LancasterBlood monocytes automated count (number/volume)2020-03-09 04:35:00* Test Item Value Reference Range Interpretation Comments Monocytes # (Auto) (test code = 742-7) 0.5 0.2-0.8 [facility] LancasterAutomated blood eosinophil count 2020-03-09 04:35:00* Test Item Value Reference Range Interpretation Comments Eosinophils # (Auto) (test code = 711-2) 0.4 0.0-0.4 [facility] LancasterAutomated blood basophil count (count/volume)2020-03-09 04:35:00* Test Item Value Reference Range Interpretation Comments Basophils # (Auto) (test code = 704-7) 0.0 0.0-0.1 [facility] LancasterFluoroscopic procedure less than one hour wscqdqsy0431-33-30 04:35:00* Test Item Value Reference Range Interpretation Comments Absolute Immature Granulocyte (auto (miguel angel t code = Absolute Immature Granulocyte (auto) 0.02 0-0.1 [facility] LancasterCreatine Kinase CC4936-31-09 18:37:00* Test Item Value Reference Range Interpretation Comments Creatine Kinase MB (test code = 80400-1) 1.40 0-5.0 [facility] LancasterTroponin W2608-99-46 18:37:00* Test Item Value Reference Range Interpretation Comments Troponin I (test code = 55725-2) 0.011 0-0.300 [facility] LancasterTotal Wdgbrrnrr6903-65-79 18:33:00* Test Item Value Reference Range Interpretation Comments Total Bilirubin (test code = 1975-2) 0.5 0.2-1.2 [facility] LancasterAspartate Amino Transf (AST/SGOT) 2020-03-08 18:33:00* Test Item Value Reference Range Interpretation Comments Aspartate Amino Transf (AST/SGOT) (test code = Aspartate Amino Transf (AST/SGOT)) 10 5-34 [facility] LancasterAlanine Aminotransferase (ALT/SGPT) 2020-03-08 18:33:00* Test Item Value Reference Range Interpretation Comments Alanine Aminotransferase (ALT/SGPT) (test code = 1742-6) 10 0-55 [facility] LancasterTotal Ftnvltl9720-13-04 18:33:00* Test Item Value Reference Range Interpretation Comments Total Protein (test code = 2885-2) 7.1 6.5-8.1 [facility] LancasterAlbumin2020-04-16 18:33:00* Test Item Value Reference Range Interpretation Comments Albumin (test code = 1751-7) 3.0 3.5-5.0 L [facility] LancasterGlobulin2020-04-16 18:33:00* Test Item Value Reference Range Interpretation Comments Globulin (test code = 15325-6) 4.1 2.3-3.5 H [facility] LancasterAlbumin/Globulin Isdie2004-66-94 18:33:00 * Test Item Value Reference Range Interpretation Comments Albumin/Globulin Ratio (test code = 1759-0) 0.7 0.8-2.0 L [facility] LancasterAlkaline Chtqsugbmju4105-68-80 18:33:00* Test Item Value Reference Range Interpretation Comments Alkaline Phosphatase (test code = 6768-6) 102 40-150 [facility] LancasterCreatine Tgzdeg6860-92-11 18:33:00* Test Item Value Reference Range Interpretation Comments Creatine Kinase (test code = 2157-6) 81 29-168 [facility] LancasterB-Type Natriuretic Fzsoqze7658-91-49 18:11:00* Test Item Value Reference Range Interpretation Comments B-Type Natriuretic Peptide (test code = 28500-5) 406.8 0-100 [facility]ererum or plasma total bilirubin measurement (mass/volume)2020-03-08 18:00:00* Test Item Value Reference Range Interpretation Comments Total Bilirubin (test code = 1975-2) 0.5 0.2-1.2 [facility] LancasterFluoroscopic procedure less than one hour csrgzhji0748-18-56 18:00:00* Test Item Value Reference Range Interpretation Comments Aspartate Amino Transf (AST/SGOT) (test code = Aspartate Amino Transf (AST/SGOT)) 10 5-34 [facility]ererum or plasma alanine aminotransferase measurement (enzymatic activity/volume)2020-03-08 18:00:00* Test Item Value Reference Range Interpretation Comments Alanine Aminotransferase (ALT/SGPT) (test code = 1742-6) 10 0-55 [facility]ererum or plasma protein measurement (mass/volume)2020-03-08 18:00:00* Test Item Value Reference Range Interpretation Comments Total Protein (test code = 2885-2) 7.1 6.5-8.1 [facility]ererum or plasma albumin measurement (mass/volume)2020-03-08 18:00:00* Test Item Value Reference Range Interpretation Comments Albumin (test code = 1751-7) 3.0 3.5-5.0 [facility] LancasterPlasma globulin measurement (mass/volume) 2020-03-08 18:00:00* Test Item Value Reference Range Interpretation Comments Globulin (test code = 94906-4) 4.1 2.3-3.5 [facility]ererum or plasma albumin/globulin mass cuaqj2959-40-16 18:00:00* Test Item Value Reference Range Interpretation Comments Albumin/Globulin Ratio (test code = 1759-0) 0.7 0.8-2.0 [facility]ererum or plasma alkaline phosphatase measurement (enzymatic activity/volume)2020-03-08 18:00:00* Test Item Value Reference Range Interpretation Comments Alkaline Phosphatase (test code = 6768-6) 102 40-150 [facility]ererum or plasma creatine kinase measurement (enzymatic activity/volume)2020-03-08 18:00:00* Test Item Value Reference Range Interpretation Comments Creatine Kinase (test code = 2157-6) 81 29-168 [facility]ererum or plasma creatine kinase MB measurement (mass/volume)2020-03-08 18:00:00* Test Item Value Reference Range Interpretation Comments Creatine Kinase MB (test code = 46972-7) 1.40 0-5.0 [facility] LancasterTroponin I measurement by highly sensitive enzyme cyowvcrlpcm2145-51-88 18:00:00* Test Item Value Reference Range Interpretation Comments Troponin I (test code = 18639-7) 0.011 0-0.300 [facility]ererum or plasma total bilirubin measurement (mass/volume)2020-03-08 18:00:00* Test Item Value Reference Range Interpretation Comments Total Bilirubin (test code = 1975-2) 0.5 0.2-1.2 [facility] LancasterFluoroscopic procedure less than one hour hsqtkqhw4087-37-24 18:00:00* Test Item Value Reference Range Interpretation Comments Aspartate Amino Transf (AST/SGOT) (test code = Aspartate Amino Transf (AST/SGOT)) 10 5-34 [facility]ererum or plasma alanine aminotransferase measurement (enzymatic activity/volume)2020-03-08 18:00:00* Test Item Value Reference Range Interpretation Comments Alanine Aminotransferase (ALT/SGPT) (test code = 1742-6) 10 0-55 [facility]ererum or plasma protein measurement (mass/volume)2020-03-08 18:00:00* Test Item Value Reference Range Interpretation Comments Total Protein (test code = 2885-2) 7.1 6.5-8.1 [facility]ererum or plasma albumin measurement (mass/volume)2020-03-08 18:00:00* Test Item Value Reference Range Interpretation Comments Albumin (test code = 1751-7) 3.0 3.5-5.0 [facility] LancasterPlasma globulin measurement (mass/volume) 2020-03-08 18:00:00* Test Item Value Reference Range Interpretation Comments Globulin (test code = 67237-6) 4.1 2.3-3.5 [facility]ererum or plasma albumin/globulin mass mdqgw0886-31-91 18:00:00* Test Item Value Reference Range Interpretation Comments Albumin/Globulin Ratio (test code = 1759-0) 0.7 0.8-2.0 [facility]ererum or plasma alkaline phosphatase measurement (enzymatic activity/volume)2020-03-08 18:00:00* Test Item Value Reference Range Interpretation Comments Alkaline Phosphatase (test code = 6768-6) 102 40-150 [facility]ererum or plasma creatine kinase measurement (enzymatic activity/volume)2020-03-08 18:00:00* Test Item Value Reference Range Interpretation Comments Creatine Kinase (test code = 2157-6) 81 29-168 [facility]ererum or plasma creatine kinase MB measurement (mass/volume)2020-03-08 18:00:00* Test Item Value Reference Range Interpretation Comments Creatine Kinase MB (test code = 07327-6) 1.40 0-5.0 [facility] LancasterTroponin I measurement by highly sensitive enzyme yvjbwnhuski2498-88-34 18:00:00* Test Item Value Reference Range Interpretation Comments Troponin I (test code = 84232-1) 0.011 0-0.300 [facility] LancasterCHEST SINGLE (PORTABLE)2020-03-08 17:48:00 [place] [address] Patient Name: ADAN COLEY MR #: [id number] : 1950 Age/Sex: 69/F Req #: [id number] Adm Physician: Ordered by: JAVIER COBB OCEANOGRAPHIC METEOROLOGIST Report #: [id number] Location: ER Room/Bed: Procedure: [id number] D X/CHEST SINGLE (PORTABLE) Exam Date: 03/08/20 Exam T leticia: 1730 REPORT STATUS: Signed EXAMINATION: CHEST SINGLE (PORTABLE) INDICATION: Swollen legs ERMD ORDER [id number] 1730 Y COMPARISON: 11/12/2018 FI NDINGS: TUBES and [...] MD, MD 49 COPY TO: LUIGI COBB OCEANOGRAPHIC METEOROLOGIST BNP Qbr-mBdj6922-19-16 17:00:00* Test Item Value Reference Range Interpretation Comments B-Type Natriuretic Peptide (test code = 39737-8) 406.8 0-100 [facility] LancasterBNP Fgd-zKzz2461-96-16 17:00:00* Test Item Value Reference Range Interpretation Comments B-Type Natriuretic Peptide (test code = 80188-0) 406.8 0-100 [facility] LancasterBedside Solxzhi9360-64-00 00:30:00* Test Item Value Reference Range Interpretation Comments Bedside Glucose (test code = 22787-3) 267 70-120 H Meter ID: [id number] Medical Centerodium Level 2018-11-12 23:54:00* Test Item Value Reference Range Interpretation Comments Sodium Level (test code = 2951-2) 139 136-145 [facility] LancasterPotassium Xinnc1862-28-94 23:54:00* Test Item Value Reference Range Interpretation Comments Potassium Level (test code = 2823-3) 4.1 3.5-5.1 [facility] LancasterChloride Mqfmy8851-90-76 23:54:00* Test Item Value Reference Range Interpretation Comments Chloride Level (test code = 2075-0) 105 98-107 [facility] LancasterCarbon Dioxide Txwxa0285-04-44 23:54:00* Test Item Value Reference Range Interpretation Comments Carbon Dioxide Level (test code = 2028-9) 21 22-29 L [facility] LancasterAnion Bgv8436-63-98 23:54:00* Test Item Value Reference Range Interpretation Comments Anion Gap (test code = 00920-3) 17.1 8-16 H [facility] LancasterBlood Urea Ksxuokil3413-52-17 23:54:00* Test Item Value Reference Range Interpretation Comments Blood Urea Nitrogen (test code = 3094-0) 37 7-26 H [facility] LancasterCreatinine2018-12-21 23:54:00* Test Item Value Reference Range Interpretation Comments Creatinine (test code = 2160-0) 1.57 0.57-1.11 H [facility] LancasterBUN/Creatinine Pauod2425-69-62 23:54:00* Test Item Value Reference Range Interpretation Comments BUN/Creatinine Ratio (test code = 3097-3) 24 6-25 [facility] LancasterEstimat Glomerular Filtration Rate 2018-11-12 23:54:00* Test Item Value Reference Range Interpretation Comments Estimat Glomerular Filtration Rate (test code = 487434539) 33 >60 L Ranges were taken from the National Kidney Disease Education Program and the [facility] literature.Reference ranges:60 or greater: Fhmrbj54-25 ( for 3 consecutive months): Chronic kidney disease 15 or less: Kidney failureCrescent Medical Center LancasterGlucose Usseo2249-95-33 23:54:00* Test Item Value Reference Range Interpretation Comments Glucose Level (test code = CQG7576) 65 74-118 L [facility] LancasterCalcium Mnfer2279-46-30 23:54:00* Test Item Value Reference Range Interpretation Comments Calcium Level (test code = 42209-4) 9.2 8.4-10.2 [facility] LancasterUrine YME2727-86-54 23:42:00* Test Item Value Reference Range Interpretation Comments Urine WBC (test code = 5821-4) 21-50 0-5 H [facility] LancasterUrine HZD4250-85-05 23:42:00* Test Item Value Reference Range Interpretation Comments Urine RBC (test code = 31034-3) 0-5 0-5 [facility] LancasterUrine Ejlyoyxq9110-96-77 23:42:00* Test Item Value Reference Range Interpretation Comments Urine Bacteria (test code = 59252-8) MANY NONE H [facility] LancasterUrine Epithelial Cuvfv7409-89-14 23:42:00 * Test Item Value Reference Range Interpretation Comments Urine Epithelial Cells (test code = 14849-0) MODERATE NONE [facility] LancasterUrine Vxkea1659-62-98 23:25:00* Test Item Value Reference Range Interpretation Comments Urine Color (test code = 5778-6) YELLOW YELLOW [facility] LancasterUrine Rjhmhjp1310-92-93 23:25:00* Test Item Value Reference Range Interpretation Comments Urine Clarity (test code = 78344-7) CLOUDY CLEAR H [facility] LancasterUrine Specific Ybabquy6607-62-33 23:25:00 * Test Item Value Reference Range Interpretation Comments Urine Specific [place] (test code = 5811-5) 1.015 1.010-1.02 5 [facility] LancasterUrine vA8022-83-13 23:25:00* Test Item Value Reference Range Interpretation Comments Urine pH (test code = 64815-5) 5 5-7 [facility] LancasterUrine Leukocyte Cqfeeytx3782-22-11 23:25:00* Test Item Value Reference Range Interpretation Comments Urine Leukocyte Esterase (test code = 5799-2) 1+ NEGATIVE H [facility] LancasterUrine Ttpsioe9459-55-06 23:25:00* Test Item Value Reference Range Interpretation Comments Urine Nitrite (test code = 76990-5) NEGATIVE NEGATIVE [facility] LancasterUrine Qrvzorc2141-23-63 23:25:00* Test Item Value Reference Range Interpretation Comments Urine Protein (test code = 5804-0) NEGATIVE NEGATIVE [facility] LancasterUrine Glucose (UA)2018-11-12 23:25:00* Test Item Value Reference Range Interpretation Comments Urine Glucose (UA) (test code = 2349-9) 2+ NEGATIVE H [facility] LancasterUrine Yjixpvn7214-49-29 23:25:00* Test Item Value Reference Range Interpretation Comments Urine Ketones (test code = 32991-7) NEGATIVE NEGATIVE [facility] LancasterUrine Lvbculumctux1610-87-00 23:25:00* Test Item Value Reference Range Interpretation Comments Urine Urobilinogen (test code = 45401-6) 0.2 0.2-1 [facility] LancasterUrine Nbhdcfrsd4410-98-66 23:25:00* Test Item Value Reference Range Interpretation Comments Urine Bilirubin (test code = 1978-6) NEGATIVE NEGATIVE [facility] LancasterUrine Wnopo7038-70-97 23:25:00* Test Item Value Reference Range Interpretation Comments Urine Blood (test code = 90756-6) NEGATIVE NEGATIVE [facility] LancasterCHEST SINGLE (PORTABLE)2018-11-12 19:28:00 [place] [address] Patient Name: ADAN COLEY MR #: [id number] : 1950 Age/Sex: 68/F Req #: [id number] Adm Physician: Ordered by: ROSEMARY SAMUEL NP Report #: [id number] Location: ER Room/Bed: Procedure: [id number] DX/ CHEST SINGLE (PORTABLE) Exam Date: 11/12/18 Exam Javon e: 2905 REPORT STATUS: Signed EX AMINATION: CHEST SINGLE (PORTABLE) COMPARISON: Chest x-ray 11/18/2017 INDICATION: Kidney problems DISCUSSION: Frontal view of the [facility] st obtained at 1901 hours. HEART AND [...] COPY TO: ROSEMARY SAMUEL NP B-Type Natriuretic Yptcvhe3675-86-83 18:38:00* Test Item Value Reference Range Interpretation Comments B-Type Natriuretic Peptide (test code = 93828-3) 36.2 0-100 [facility] LancasterCreatine Kinase WC9443-41-47 18:34:00* Test Item Value Reference Range Interpretation Comments Creatine Kinase MB (test code = 57158-8) 1.30 0-5.0 [facility] LancasterTroponin B6155-24-26 18:34:00* Test Item Value Reference Range Interpretation Comments Troponin I (test code = BYA1642) < 0.088 0-0.300 [facility] LancasterTotal Nkshxvqgg3056-99-81 18:23:00* Test Item Value Reference Range Interpretation Comments Total Bilirubin (test code = 1975-2) 0.6 0.2-1.2 [facility] LancasterAspartate Amino Transf (AST/SGOT) 2018-11-12 18:23:00* Test Item Value Reference Range Interpretation Comments Aspartate Amino Transf (AST/SGOT) (test code = Aspartate Amino Transf (AST/SGOT)) 10 5-34 [facility] LancasterAlanine Aminotransferase (ALT/SGPT) 2018-11-12 18:23:00* Test Item Value Reference Range Interpretation Comments Alanine Aminotransferase (ALT/SGPT) (test code = 1742-6) 10 0-55 [facility] LancasterTotal Qcskbng1156-36-36 18:23:00* Test Item Value Reference Range Interpretation Comments Total Protein (test code = 2885-2) 8.3 6.5-8.1 H [facility] LancasterAlbumin2018-12-21 18:23:00* Test Item Value Reference Range Interpretation Comments Albumin (test code = 1751-7) 3.3 3.5-5.0 L [facility] LancasterGlobulin2018-12-21 18:23:00* Test Item Value Reference Range Interpretation Comments Globulin (test code = 84357-9) 5.0 2.3-3.5 H [facility] LancasterAlbumin/Globulin Pephd5002-43-18 18:23:00 * Test Item Value Reference Range Interpretation Comments Albumin/Globulin Ratio (test code = 1759-0) 0.7 0.8-2.0 L [facility] LancasterAlkaline Hsnpkfudhfr5174-22-10 18:23:00* Test Item Value Reference Range Interpretation Comments Alkaline Phosphatase (test code = 6768-6) 106 40-150 [facility] LancasterCreatine Alcdbj8017-49-03 18:23:00* Test Item Value Reference Range Interpretation Comments Creatine Kinase (test code = 2157-6) 74 29-168 [facility] LancasterProthrombin Hwaf8063-62-89 18:16:00* Test Item Value Reference Range Interpretation Comments Prothrombin Time (test code = 5902-2) 12.6 11.9-14.5 [facility] LancasterProthromb Time International Ratio 2018-11-12 18:16:00* Test Item Value Reference Range Interpretation Comments Prothromb Time International Ratio (test code = 6301-6) 0.87 Oral Anticoagulant Therapy INR Values:1. Low Intensity Therapy 1.5 - 2.02 . Moderate Intensity Therapy 2.0 - 3.03. High Intensity Therapy(1) 2.5 - 3. 54. High Intensity Therapy(2) 3.0 - 4.05. Panic Value INR > 5.0 [facility] LancasterActivated Partial Thromboplast Time 2018-11-12 18:16:00* Test Item Value Reference Range Interpretation Comments Activated Partial Thromboplast Time (test code = 51149-1) 26.7 23.8-35.5 [facility] LancasterWhite Blood Djckm0507-30-91 18:11:00* Test Item Value Reference Range Interpretation Comments White Blood Count (test code = 6690-2) 8.13 4.8-10.8 [facility] LancasterRed Blood Dnuht0484-14-17 18:11:00* Test Item Value Reference Range Interpretation Comments Red Blood Count (test code = 789-8) 4.05 3.6-5.1 [facility] LancasterHemoglobin2018-12-21 18:11:00* Test Item Value Reference Range Interpretation Comments Hemoglobin (test code = 96879-2) 12.1 12.0-16.0 [facility] LancasterHematocrit2018-12-21 18:11:00* Test Item Value Reference Range Interpretation Comments Hematocrit (test code = 4544-3) 36.5 34.2-44.1 [facility] LancasterMean Corpuscular Plfuyg8026-81-97 18:11:00* Test Item Value Reference Range Interpretation Comments Mean Corpuscular Volume (test code = 787-2) 90.1 81-99 [facility] LancasterMean Corpuscular Ktggtyqesh9326-88-64 18:11:00* Test Item Value Reference Range Interpretation Comments Mean Corpuscular Hemoglobin (test code = 785-6) 29.9 28-32 [facility] LancasterMean Corpuscular Hemoglobin Concent 2018-11-12 18:11:00* Test Item Value Reference Range Interpretation Comments Mean Corpuscular Hemoglobin Concent (test code = 786-4) 33.2 31-35 [facility] LancasterRed Cell Distribution Klblc4170-23-86 18:11:00* Test Item Value Reference Range Interpretation Comments Red Cell Distribution Width (test code = 79512-5) 12.2 11.7 -14.4 [facility] LancasterPlatelet Gmmal8398-29-21 18:11:00* Test Item Value Reference Range Interpretation Comments Platelet Count (test code = 777-3) 275 140-360 [facility] LancasterNeutrophils (%) (Auto)2018-11-12 18:11:00 * Test Item Value Reference Range Interpretation Comments Neutrophils (%) (Auto) (test code = 93508-7) 74.3 38.7-80.0 [facility] LancasterLymphocytes (%) (Auto)2018-11-12 18:11:00 * Test Item Value Reference Range Interpretation Comments Lymphocytes (%) (Auto) (test code = 736-9) 18.0 18.0-39.1 [facility]2018-11-12 18:11:00* Test Item Value Reference Range Interpretation Comments Monocytes (%) (Auto) (test code = 5905-5) 5.7 4.4-11.3 [facility] (Auto)2018-11-12 18:11:00 * Test Item Value Reference Range Interpretation Comments Eosinophils (%) (Auto) (test code = 713-8) 1.1 0.0-6.0 [facility] (Auto)2018-11-12 18:11:00* Test Item Value Reference Range Interpretation Comments Basophils (%) (Auto) (test code = 706-2) 0.7 0.0-1.0 [facility] %2018-11-12 18:11:00* Test Item Value Reference Range Interpretation Comments IM GRANULOCYTES % (test code = IM GRANULOCYTES %) 0.2 0.0- 1.0 [facility] # (Auto)2018-11-12 18:11:00* Test Item Value Reference Range Interpretation Comments Neutrophils # (Auto) (test code = 751-8) 6.0 2.1-6.9 [facility] # (Auto)2018-11-12 18:11:00* Test Item Value Reference Range Interpretation Comments Lymphocytes # (Auto) (test code = 66576-1) 1.5 1.0-3.2 [facility] # (Auto)2018-11-12 18:11:00* Test Item Value Reference Range Interpretation Comments Monocytes # (Auto) (test code = 742-7) 0.5 0.2-0.8 [facility] # (Auto)2018-11-12 18:11:00* Test Item Value Reference Range Interpretation Comments Eosinophils # (Auto) (test code = 711-2) 0.1 0.0-0.4 [facility] # (Auto)2018-11-12 18:11:00* Test Item Value Reference Range Interpretation Comments Basophils # (Auto) (test code = 704-7) 0.1 0.0-0.1 [facility]Absolute Immature Granulocyte (auto 2018-11-12 18:11:00* Test Item Value Reference Range Interpretation Comments Absolute Immature Granulocyte (auto (miguel angel t code = Absolute Immature Granulocyte (auto) 0.02 0-0.1 [facility] [place] [address] Patient Name: ADAN COLEY MR #: [id number] : 1950 Age/Sex: 67/F Req #: [id number] Adm Physician: YORDY GIRON MD Ordered by: PEREZ ORTIZ MD Report #: [id number] Location: [facility] Room/Bed: [place] [address] Procedure: [id number] DX/CH EST SINGLE (PORTABLE) Exam Date: 11/18/17 Exam Time: 1430 REPORT STATUS: Signed PROCEDURE: CHEST SINGLE (PORTABLE) TECH NIQUE: Portable AP chest INDICATION: Chest congestion COMPARISON: [facility], DX, CHEST 2 VIEWS, 11/16/2017, 14:36. FINDINGS: [...] MD 56 Transcr ibed By: IRENE on 11/18/171456 COPY TO: PEREZ ORTIZ MD ECHO COMPLETE (ECHOCARDIOGRAM) [place] [address] Patient Name : ADAN COLEY MR #: [id number] : 1950 Age/Sex: 67/F Adm Physician : YORDY GIRON MD Admit Date : 11/15/17 Location : MED/SURG Room/Bed : [facility] REPORT: Cardiology Report DATE OF STUDY: November [...] pulmonary hypertension. DT: 1 01/18/2017 10:12 Job#: [id number] RI cc: YORDY GIRON MD Signatur e Date Dictated By: ROCIO ROMAN MD Transcribed By: SMEDS on <Electronically signed by ROCIO ROMAN MD><<Signature on File>>12/11/17 1029 COPY TO: CHEST 2 VIEWS [place] [address] Patient Name: ADAN COLEY MR #: [id number] : 1950 Age/Sex: 67/F Req #: [id number] Adm Physician: YORDY GIRON MD Ordered by: HARRY VAZQUEZ MD Report #: [id number] Location: [facility] Room/Bed: [place] [address] Procedure: [id number] DX/CHES T 2 VIEWS Exam Date: 11/16/17 Exam Time: 1445 REPORT STATUS: Signed EXAMINATION: PA and lateral views of the chest. COMPARISON: Chest PA and lateral 04/16/2017 CLINICAL HISTORY: Shortness of breath DISCUSSION: Lines/tubes: None. Lungs: The lungs ar e well-inflated. Patchy bibasilar opacities. Mild perihilar interstitial [...] TO: HARRY VAZQUEZ MD CT CHEST WO [place] [address] Patient Name: ADAN COLEY MR #: [id number] : 1950 Age/Sex: 67/F Req #: [id number] Adm Physician: YORDY GIRON MD Ordered by: YORDY GIRON MD Report #: [id number] Location: [facility] Room/Bed: [place] [address] Procedure: [id number] CT/CT CH EST WO Exam Date: 11/15/17 [...] MD 1224 Transcribed By: SUSANNAH on 11/15/17 122 4 COPY TO: YORDY GIRON MD CHEST SINGLE (PORTABLE) [place] [address] Patient Name: ADAN COLEY MR #: [id number] : 1950 Age/Sex: 67/F Req #: [id number] Adm Physician: Ordered by: KEVIN HERRERA MD Report #: [id number] Location: ER Room/Bed: Procedure: [id number] DX/CHEST SINGLE (PORTABLE) Ex am Date: Exam [...] TO: KEVIN HERRERA MD CHEST SINGLE (PORTABLE) [place] [address] Patient Name: ADAN COLEY MR #: [id number] : 1950 Age/Sex: 67/F Req #: [id number] Adm Physician: Ordered by: JASON CAMPOS MD Report #: [id number] Location: ER Room/Bed: Procedure: DX/CHEST SINGLE (PORTABLE) Exa m Date: 11/12/17 Exam Time: 1809 REPORT STATUS: Signed PROCEDURE: A single AP view of the chest. COMPARISON: Patient s [facility], CT, CT CHEST WO, 09/21/2017, 15:01. INDICATIONS: [...] 11/12/171842 COPY TO: JASON CAMPOS MD CT [facility] [place] [address] Patient Name: ADAN COLEY MR #: [id number] : 1950 Age/Sex: 66/F Req #: [id number] Adm Physician: Ordered by: JASON CAMPOS MD Report #: [id number] Location: ER Room/Bed: Procedure: [id number] CT/CT MAXIO FAC/PARANAS DA hinson Date: 11/07/17 Exam Time: 1125 REPORT [...] on 11/07/2017 at 4:11 PM. Signed by: Demond Farmer on 11/07/2017 4:11 PM Dictated By: LATRICE STEVEN MD Electronically Sign ed By: LATRICE STEVEN MD on 11/07/17 161 Transcribed By: SUSANNAH on 11/07/171610 COPY TO: JASON CAMPOS MD MRI FOOT RIGHT [place] [address] Patient Name: ADAN COLEY MR #: [id number] : 1950 Age/Sex: 66/F Req #: [id number] Adm Physician: YORDY GIRON MD Ordered by: TOMAS MURDOCK DPNissa Report #: [id number] Location: MED/SURG2 Room/Bed: 200-1 Procedure: 1204-000 8 MRI/MRI FOOT RIGHT WO [...] TO: TOMAS MURDOCK DPNissa FOOT RIGHT COMPLETE [place] [address] Patient Name: ADAN COLEY MR #: [id number] : 1950 Age/Sex: 66/F Req #: [id number] Adm Physician: Ordered by: JAQUAN PADILLA MD Report #: [id number] Location: ER Room/Bed: Procedure: [id number] DX/FOOT RIGHT COMPLETE Exam Date: 10/25/17 Exam [...] PADILLA MD Stress Test - Treadmill ONLY [place] [address] Patient Name : ADAN COLEY MR #: [id number] : 1950 Age/Sex: 66/F Adm Physician : YORDY GIRON MD Admit Date : 09/18/17 Location : MED/SURG2 Room/Bed : [facility] REPORT: Cardiology Report DATE OF STUDY: September 22, 2017 LEXISCAN MYOVIEW The patient minor d resting perfusion images after an injection of [...] ventricular function. Calculated ejection fraction 61%. Job#: [id number] RI cc: YORDY GIRON MD Signature Date Dictated By: MATT COE MD Transcribed By: JOSE on 09/23/17 <Electronically signed by MATT BROCK MD><<Signature on File>>09/28/17 1107 COPY TO: RENAL RETROPERITONEAL COMP [place] [address] Patient Name: ADAN COLEY MR #: [id number] : 1950 Age/Sex: 66/F Req #: [id number] Adm Physician: YORDY GIRON MD Ordered by: BLAZE GARDNER, ENRIKE GARDNER Report #: [id number] Location: [facility] Room/Bed: [facility] Procedure: [id number] US/U S RENAL RETROPERITONEAL COMP Exam Date: [...] a Mercado catheter in place. IMPRESSION: Unremarkable emilee al ultrasound exam. 2 cm simple left renal cyst. Signed by: Dr. Carina syed MD on 09/22/2017 2:42 PM Dictated By: CARINA SANTOS MD Electronica lly Signed By: CARINA SANTOS MD on 09/22/171441 Transcribed By: SUSANNAH on 1441 COPY TO: ENRIKE THAKUR CT CHEST WO [place] [address] Patient Name: ADAN COLEY MR #: [id number] : 1950 Age/Sex: 66/F Req #: [id number] Adm Physician: YORDY GIRON MD Ordered by: YORDY GIRON MD Report #: [id number] Location: MED/SURG2 Room/Bed: [facility] Procedure: [id number] CT/CT CH EST WO Exam Date: 09/21/17 Exam Time: 1501 REP ORT STATUS: Signed PROCEDURE: CT CHEST WITHOUT CONTRAST CT scan of the ches t WITHOUT intravenous contrast, using standard protocol. TECHNIQUE: T he chest was scanned utilizing a multidetector helical scanner from the apex to the level of the adrenal glands. No IV contrast was administered as per p sician request. Coronal and sagittal multiplanar reformations were [...] TO: YORDY GIRON MD ECHO COMPLETE (ECHOCARDIOGRAM) [place] [address] Patient Name : ADAN COLEY MR #: [id number] : 1950 Age/Sex: 66/F Adm Physician : YORDY GIRON MD Admit Date : 09/18/17 Location : MED/SURG2 Room/Bed : 213 REPORT: Cardiology Report DATE OF STUDY: September [...] ventricular wall motion, including the inferior wall. 2 . Right ventricular hypertrophy. 3. Sclerosis of the mitral valve annulus wi th dilated left atrium. 4. Trace tricuspid regurgitation. Job#: [id number] RI cc: TRA DELANEY MD Signature Date Dictated By: ROCIO Santos MD Transcribed By: EDS on 09/21/17 <Electronically signed by ROCIO ROMAN MD><<Signature on File>>09/29/17 1006 COPY TO: CHEST SINGLE (PORTABLE) [place] [address] Patient Name: ADAN COLEY MR #: [id number] : 1950 Age/Sex: 66/F Req #: [id number] Adm Physician: MICHAEL DELANEY MD Ordered by: ROCIO ROMAN MD Report #: [id number] Locati on: MED/SURG2 Room/Bed: [facility] Procedure: [id number] DX /CHEST SINGLE (PORTABLE) Exam Date: 09/20/17 [...] mediastinum are unremarkable. Bones and soft tissues: N o acute bony abnormalities. IMPRESSION: 1. Mildly improved int erstitial and alveolar opacities, greater in the right lung likely reflecting edema. Signed by: Dr. James Wolff M.D. on 09/20/2017 6:58 AM Dic tated By: JAMES WOLFF MD 7 Transcribed By: SUSANNAH on 09/20/17657 COPY TO: Nissa ROMAN MD VENOUS DUPLEX LWR B/L [place] [address] Patient Name : ADAN COLEY MR #: [id number] : 1950 Age/Sex: 66/F Adm Physician : YORDY GIRON MD Admit Date : 09/18/17 Location : [facility] Room/Bed : [facility] REPORT: Cardiology Report DATE OF STUDY: September 19, 2017 DOPPLER SCAN OF LOWER EXTREMITIES VE INS The lower extremity veins were interrogated using the duplex scanning method. The veins were compressible. There was no definite deep venous thrombosis. CONCLUSION 1. No definite deep venous thrombosis involving the lower extremity veins bilaterally. 2. Suboptimal study. DD: 14:50 Job#: [id number] cc: MICHAEL TROY MD Signature Date Dictated By: ROCIO ROMAN MD T ranscribed By: ALEXANDER on 09/20/17 <Electronically signed by ROCIO ROMAN MD><< Signature on File>>09/21/17 0941 COPY TO: CHEST SINGLE (PORTABLE) [place] [address] Patient Name: ADAN COLEY MR #: [id number] : 1950 Age/Sex: 66/F Req #: [id number] Adm Physician: MICHAEL DELANEY MD Ordered by: ROCIO ROMAN MD Report #: [id number] Locati on: MED/SURG2 Room/Bed: [facility] Procedure: [id number] DX /CHEST SINGLE (PORTABLE) Exam Date: 09/19/17 [...] 1:38 PM Dictated By: ONELIA GUTIÉRREZ MD 133 Transcribed By: SUSANNAH on 09/19/17 1338 COPY TO: ROCIO ROMAN MD CHEST SINGLE (PORTABLE) [place] [address] Patient Name: ADAN COLEY MR #: [id number] : 1950 Age/Sex: 66/F Req #: [id number] Adm Physician: Ordered by: JASON CAMPOS MD Report #: [id number] Location: ER Room/Bed: Procedure: [id number] DX/CHEST SINGLE (PORTABLE) Exa m Date: 09/18/17 Exam Time: 1215 REPORT STATUS: Signed PROCEDURE: A single AP view of the chest obtained at 1213 hrs. COMPARISON: Chest x-ray 09/10/17. INDICATIONS: RESPIRATORY DISTRESS FINDINGS: Lines/tubes: None. Lungs: New fluffy airspace opaciti es have developed throughout the right lung with sparing of the periphery. Th e left diaphragm is poorly visualized. The pulmonary vasculature is prominent , best visualized in the left upper lobe. [...] at 12:54 Dictated By: CYNDY DOYLE MD 1254 Transcribed By: IRENE on 09/18/17 1254 COPY TO : JASON CAMPOS MD CT FOOT RIGHT WO [place] [address] Patient Name: ADAN COLEY MR #: [id number] : 1950 Age/Sex: 66/F Req #: [id number] Adm Physician: YORDY GIRON MD Ordered by: YORDY GIRON MD Report #: [id number] Location: MED/SURG2 Room/Bed: 210 Procedure: [id number] CT/CT FO OT RIGHT WO Exam Date: [...] PM Dictated By: NING GONGORA MD, MD [facility] Signed By: NING GONGORA MD, MD on 09/11/17 161 Transcribed By: SUSANNAH on 09/11/171613 COPY TO: YORDY GIRON MD FOOT RIGHT [place] [address] Patient Name: ADAN COLEY MR #: [id number] : 1950 Age/Sex: 66/F Req #: [id number] Adm Physician: YORDY GIRON MD Ordered by: KEVIN HERRERA MD Report #: [id number] Location: MED/[facility] Room/Bed: 210 Procedure: [id number] DX/FO OT RIGHT COMPLETE Exam Date: 09/10/17 Exam Time: 235 5 REPORT STATUS: Signed FOOT RIGHT COMPLETE HISTORY: Diabetic miguel d with cellulitis. Evaluate for osteomyelitis. COMPARISON: None F INDINGS: Bones: No displaced fracture. There is diffuse demineralization. Multifocal area of solid periosteal reaction most likely due to venous stasis. Osseous alignment is within normal limits. Joints: Scattered degenerati ve changes of the mid and forefoot Soft tissues: Diffuse soft tissue ines a with questionable defect at the plantar aspect [...] 09/11/17 0120 COPY TO: KEVIN HERRERA MD [facility] [place] [address] Patient Name: ADAN COLEY MR #: [id number] : 1950 Age/Sex: 66/F Req #: [id number] Adm Physician: YORDY GIRON MD Ordered by: KEVIN HERRERA MD Report #: [id number] Location: MED/SURG2 Room/Bed: [facility] Procedure: [id number] DX/CH EST SINGLE (PORTABLE) Exam Date: 09/10/17 Exam Time: 2355 REPORT STATUS: Signed EXAMINATION: CHEST SINGLE (PORTABLE) INDICATION: Lower extremity cellulitis. COMPARISON: 04/18/20 FINDINGS: TUBES and LINES: None. LUNGS: Lungs [...] acute thoracic abnormality. Mild enlargement of the hear t with central vascular congestion. Signed by: Dr. Holger Manley M.D. on 1:21 AM Dictated By: HOLGER MISHRA MD Electronically Sign ed By: HOLGER MISHRA MD on 09/11/17120 Transcribed By: SUSANNAH on 08/24 COPY TO: KEVIN HERRERA MD
== END 2020-08-18 14:33 | disposition home or self-care (01) ==
LOC: ER 14:33
DX: L30.9 Dermatitis, unspecified (principal)
CPT/HCPCS: 99283

== ENCOUNTER 2022-03-28 19:00 | Emergency (ER) | payer MEDICARE ==
[~2022-03-28] VITALS: Ht 160 cm; Wt 133.4 kg
== END 2022-03-28 21:45 | disposition home or self-care (01) ==
LOC: ER 19:16
DX: M25.562 Pain in left knee (principal); M25.561 Pain in right knee; S80.02XA Contusion of left knee, initial encounter; S80.01XA Contusion of right knee, initial encounter; W18.39XA Other fall on same level, initial encounter; Y92.098 Other place in other non-institutional residence as the place of occurrence of the external cause; I12.9 Hypertensive chronic kidney disease with stage 1 through stage 4 chronic kidney disease, or unspecified chronic kidney disease; E11.22 Type 2 diabetes mellitus with diabetic chronic kidney disease; N18.9 Chronic kidney disease, unspecified; E78.5 Hyperlipidemia, unspecified; K21.9 Gastro-esophageal reflux disease without esophagitis; E78.00 Pure hypercholesterolemia, unspecified
CPT/HCPCS: 99284